=== PATIENT | male | born 1930 | race Caucasian/White ===

== ENCOUNTER 2017-04-20 13:50 | Inpatient (IN) ==
--- NOTE | 2017-04-20 15:05 | EKG Report ---
Stationary ECG Study [facility] ER Test Date: 04/20/2017 2:41:33 PM Pat Name: FIFI JOHN Department: Room: Gender: M Net Trainer: : 1930 Requested by: [place] Order Number: [id number] Reading MD: CHAVO EARL Intervals [place] Rate: 66 P: 999 LA: 0 QRS: 268 QRSD: 233 T: 83 QT: 613 QTc: 627 Interpretive Statements ELECTRONIC VENTRICULAR PACEMAKER Atrial fibrillation Electronically Signed On 04-20-17 21:30:53 CDT by CHAVO EARL [email or web address]
[2017-04-20 16:21] LABS: Basophils % 0.7 % (0.0-0.8); Eosinophils # 0.2 10*3/uL (0.0-0.87); Eosinophils % 3.3 % (0.00-10.9); Hematocrit 33.1 VOL% (42.0-52.0); Hemoglobin 11.4 GM/DL (14.0-18.0); Immature Granulocytes % 0.2 %; Immature Granulocytes Absolute 0.01 #; Lymphocytes # 2.5 10*3/uL (1.4-4.0); Lymphocytes % 46.8 % (21.2-54.2); Mean Corpuscular HGB Conc 34.4 GM/DL (32-36); Mean Corpuscular Hemoglobin 29 PG (27-34); Mean Corpuscular Volume 85.3 FL (87-102); Mean Platelet Volume 10.7 FL (9.6-12.0); Monocytes # 0.4 10*3/uL (0.11-0.8); Monocytes % 7.6 % (1.7-12.7); Neutrophils # 2.2 10*3/uL (1.4-7.4); Neutrophils % 41.4 % (38.7-73.9); Platelet Count 126 T/CUMM (130-400); Red Blood Count 3.88 MC/CUMM (3.8-5.5); Red Cell Distribution Width 14.5 % (9.3-17.3); White Blood Count 5.4 T/CUMM (4-12)
--- NOTE | 2017-04-20 16:24 | XRay Report ---
History: Shortness of breath Date: 04/20/2017 Study: Chest x-ray AP portable Comparison exam: November 20, 2015 There is cardiomegaly. The mediastinal contours are unchanged. There is mild aortic arch calcification. A left subclavian dual-lead transvenous pacemaker is in place. The pulmonary vasculature is not engorged. The lungs and pleural spaces are generally clear. There is mild to moderate thoracic spondylosis. Impression: No definite acute process. Cardiomegaly. Pacemaker PROCEDURE INTERPRETED AT [facility] DEPARTMENT OF RADIOLOGY Final Report Signed by: Dr. Isabel Samuels
[2017-04-20 17:00] LABS: Calcium 8.8 MG/DL (8.5-10.1); Magnesium 2.8 MG/DL (1.8-2.4); Osmolality,Calculated 277.1 MOS/KG (273-304); Potassium 3.7 MMOL/L (3.5-5.1)
[2017-04-20 17:14] LABS: Albumin 4.2 G/DL (3.4-5.0); Bilirubin,Direct 0.53 MG/DL (0.0-0.20); Bilirubin,Indirect 1.1 MG/DL (0.0-1.0); Bilirubin,Total 1.6 MG/DL (0.2-1.0); Total Protein 7.2 G/DL (6.4-8.3)
--- NOTE | 2017-04-20 17:17 | CT Report ---
Exam: CT head without intravenous contrast Clinical History: 86 years Male altered level of consciousness weakness Technique: Axial computed tomography images of the head/brain without intravenous contrast Comparison: March 03, 2013 Findings: Brain: Generalized atrophy with microangiopathic small vessel ischemic changes. Lazo-white matter distinction maintained. No mass effect. No intra or extra-axial hemorrhage. Ventricles: Unremarkable. No ventriculomegaly. Bones/joints: Calvarium is intact Soft tissues: Unremarkable Sinuses: No active paranasal sinus process Mastoid air cells: Unremarkable visualized. Impression: 1. Generalized atrophy with microangiopathic small vessel ischemic changes. No acute intracranial abnormality PROCEDURE INTERPRETED AT [facility] DEPARTMENT OF RADIOLOGY Final Report Signed by: Kuldeep Lazo
[2017-04-20] MEDS ORDERED: SODIUM CHLORIDE 0.9% 500 ML IV STA (18:04)
--- NOTE | 2017-04-20 18:23 | Ultrasound Report ---
Exam: US gallbladder Date:04/20/2017 5:29 PM Comparison:None Indication: Elevated liver function tests Real-time ultrasound images are captured and archived. The liver, bile ducts, and right kidney are visualized and appear normal. There is no evidence of cholelithiasis. There is moderate gallbladder wall thickening at 6.2 mm. There is a negative sonographic Garcia sign. The pancreas is largely obscured by bowel gas. ORGAN MEASUREMENTS Liver Length: 15.8 cm Gallbladder Wall Thickness: 6.2 mm CBD: 3.1 Right kidney: Length: 8.6 cm Impression: Nonspecific gallbladder wall thickening at 6 mm. Negative sonographic Garcia sign. No evidence of cholelithiasis. Consider chronic cholecystitis in the differential diagnosis. The pancreas is obscured by bowel gas. Otherwise negative exam PROCEDURE INTERPRETED AT [facility] DEPARTMENT OF RADIOLOGY Final Report Signed by: Dr. Isabel Samuels
--- NOTE | 2017-04-20 18:52 | Emergency Department Note ---
James Rojas Rolonda, am scribing for, and in the presence of, Bay Sandhu M.D. 15:56. Phoebe Rojas Howard T, M.D., personally performed the services described in this documentation, ascribed by Frederick Ramirez in my presence, and it is both accurate and complete [id number] . Arrival - Arrival Chief Complaint: Weakness Stated Complaint: very weak, can't walk. has pacemaker ED Nursing Triage Note: PT C/O GENERALIZED WEAKNESS TODAY- STATES HE DOES NOT HAVE THE STRENGTH TO WALK. PT STOOD WITHOUT ASSISTANCE IN TRIAGE TO REMOVE JACKET. DENIES PAIN. NO FACIAL DROOP OR SLURRED SPEECH NOTED. Mode of Arrival: Wheelchair Limitations: No Limitations Source: Patient, Old Records Reviewed, RN Notes Reviewed Time Seen by Provider: 04/20/17 15:26 - History of Present Illness HPI Narrative: Pt is a 86 y/o male who presents to the ED for further evaluation of weakness with an onset of yesterday. Pt has a PMHx of HTN, PR, and Pacemaker. Pt states that since yesterday has been having to hold on to something while walking because he has trouble "getting around". He states that he is getting weaker and cannot walk. Pt states that he uses CPAP and is not sleeping well, has no appetite, because he feels he's always "bloated". He states that he has been taking Metamucil for BM. Pt confirms weight loss but denies falling. He states that he does not have a PCP. No other complaint/pain in ED. Onset (ago): day(s) Consistency: constant Severity: mild Severity scale (1-10): 3 Allergies/Adverse Reactions: Allergies Allergy/AdvReac Type Severity Reaction Status Date / Time No Known Allergies Allergy Verified 04/20/17 14:32 Review of System - Review of System 12 point system: reviewed and no additional remarkable complaints except as stated - Review of System Constitutional: Present: weakness, weight loss. Absent: chills, fever Eyes: Absent: discharge Head/Ears/Nose/Throat: Absent: earache Respiratory: Absent: cough Cardiovascular: Absent: chest pain Gastrointestinal: Present: constipation. Absent: abdominal pain Genitourinary male: Absent: dysuria Musculoskeletal: Absent: arm pain Skin: Absent: rash Neurological: Absent: headache Psychiatric: Absent: anxiety Endocrine: Absent: cold intolerance Hematological/Lymphatic: Absent: easy bleeding Allergic/Immunologic: Absent: facial swelling Medical,Surgical,& Family Hx - Medical History Cardio: History of: Hypertension, PR, Pacemaker Endocrine: History of: Dyslipidemia - Social History Smoking Status: Never smoker Frequency of Alcohol Use: None Type of Drug Use: None Exam Vital Signs: Vital Signs Temperature 96.9 F L 04/20/17 14:21 Pulse Rate 68 04/20/17 16:25 Respiratory Rate 20 04/20/17 17:05 Blood Pressure 105/73 04/20/17 16:25 O2 Sat by Pulse Oximetry 96 04/20/17 16:25 - General General appearance: alert, in no apparent distress - Head Head exam: Present: atraumatic, normocephalic - Eye Eye exam: Present: PERRL, EOMI - ENT ENT exam: Present: mucous membranes moist. Absent: mucous membranes dry - Neck Neck exam: Present: full ROM. Absent: tenderness - Chest Chest inspection: Present: symmetric chest wall rise. Absent: tenderness - Respiratory Respiratory exam: Present: normal lung sounds bilaterally. Absent: wheezes - Cardiovascular Cardiovascular exam: Present: regular rate, normal rhythm, normal heart sounds. Absent: bradycardia - Abdominal Exam Abdominal exam: Present: soft, diminished bowel sounds. Absent: tenderness - Extremities Exam Extremities exam: Absent: full ROM, tenderness - Back Exam Back exam: Present: full ROM. Absent: tenderness - Neurological Exam Neurological exam: Present: alert, oriented X3, CN II-XII intact - Psychiatric Psychiatric exam: Present: normal affect, normal mood - Skin Skin exam: Present: warm, dry, intact, normal color. Absent: rash Course Course Narrative: Medical decision making: Patient continues to be symptomatic in the ER including near syncope while trying to use the restroom. Slightly elevated abdominal labs but no history or exam findings to suggest acute abdominal process requiring surgical evaluation. Nonspecific symptoms and workup, possibly cardiac related with history of pacemaker, further evaluation observation recommended to contacted hospitalist service for evaluation and they will likely admit overnight for continued treatment and care. Results - Labs CBC & BMP: 04/20/17 16:01 04/20/17 16:01 Lab Results: I have reviewed the patients labs Labs: Laboratory Tests 04/20/17 04/20/17 04/20/17 16:01 16:01 16:01 WBC 5.4 RBC 3.88 Hgb 11.4 L Hct 33.1 L MCV 85.3 L Plt Count 126 L Sodium 135 L Potassium 3.7 Chloride 100 Carbon Dioxide 26 BUN 40 H Creatinine 2.00 H GFR Calculation 32 Glucose 66 L Magnesium 2.8 H Total Bilirubin 1.60 H Direct Bilirubin 0.530 H Indirect Bilirubin 1.1 H AST 180 H ALT 94 H Alkaline Phosphatase 155 H - Diagnostic Findings Procedure: Chest x-ray: report reviewed by me (No definite acute process. Cardiomegaly. Pacemaker.), CT: report reviewed by me (Head/Brain: 1. Generalized atrophy with microangiopathic small vessel ischemic changes. No acute intracranial abnormality.), Ultrasound: report reviewed by me (Gallbladder : Nonspecific gallbladder wall thickening at 6 mm. Negative sonographic Garcia sign. No cholelithiasis. Consider chronic cholecystitis in the differential diagnosis.) Disposition Clinical Impression: Near syncope Case discussed with: patient Disposition: Still a Patient Condition: Stable Time of Disposition: 18:52
[2017-04-20] MEDS ORDERED: SODIUM CHLORIDE 0.9% 500 ML IV ONE (19:05)
--- NOTE | 2017-04-20 19:15 | Hospitalist History & Physical ---
Assessment and Plan (1) Anemia Status: Acute Assessment and plan: iron studies, consult Dr. Zavala, hold eliquis, stool occult, protonix Current Visit: Yes (2) Dehydration Status: Acute Assessment and plan: gentle hydration hold lasix and spironolactone Current Visit: Yes (3) Acute renal failure Status: Acute Assessment and plan: gentle hydration, renal us, doty monitor Current Visit: Yes (4) Near syncope Status: Acute Assessment and plan: hold blood pressure meds and diuretics Current Visit: Yes (5) CVA (cerebral vascular accident) Status: Acute Assessment and plan: hold eliquis Current Visit: Yes (6) Atrial fibrillation Status: Acute Assessment and plan: ??? paced rhythm but on eliquis for stroke Current Visit: Yes (7) Abnormal liver enzymes Status: Acute Assessment and plan: hold atorvastatin, hepatitis panel, not a drinker Current Visit: Yes (8) BPH (benign prostatic hyperplasia) Status: Acute Assessment and plan: UA pending, doty, blood pressure to low for meds Current Visit: Yes History of Present Illness Chief complaint: weakness History of present illness: Mr. Casillas is a 86 year old male Pt is a 86 y/o male who presents to the ED for further evaluation of weakness with an onset of yesterday. Pt has a PMHx of HTN, [place], and Pacemaker. Pt states that since yesterday has been having to hold on to something while walking because he has trouble "getting around". He states that he is getting weaker and cannot walk. Almost passed out in the bathroom trying to give us a urine specimen. Patient is extremely hard of hearing and daughter answered questions for me. Patient had a Doty placed and they got back 800 mL's of urine. UA has been sent but the findings are pending. I put him on Rocephin prophylactically. Patient looks extremely pale to me and is on Eliquis. Patient is also on Lasix and spironolactone contributing to his dehydration. Sats in the emergency room are picking up low. We will do an ABG to correlate. Daughter denies any history of smoking or lung problems. Home Medications Medication Instructions Recorded Confirmed Type Apixaban [Eliquis] 2.5 mg PO BID 04/20/17 History Atorvastatin Calcium 80 mg PO DAILY 04/20/17 History Spironolactone [Spironolactone] 12.5 mg PO MOWEFR 04/20/17 History Allergies Allergy/AdvReac Type Severity Reaction Status Date / Time No Known Allergies Allergy Verified 04/20/17 14:32 Medical,Surgical,& Family Hx - Medical History Cardio: History of: Hypertension, [place], Pacemaker Endocrine: History of: Dyslipidemia - Surgical History Cardiac Surgeries: Sugical HX of: Vascular Access Devices (pacer) HEENT Surgeries: Surgical HX of: Carotid Endarterectomy - Family History Family History: Reports;: Family Cancer (prostate ca ), Family Diabetes Denies;: Family Heart Disease, Family Stroke - Social History Smoking Status: Never smoker Frequency of Alcohol Use: None Type of Drug Use: None Marital Status: Lives With:: Spouse Functional capacity: independent ambulation - Constitutional Constitutional: Present: fatigue. 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 Absent: blurry vision Ears: Present: decreased hearing. Absent: ear discharge Nose, mouth and throat: Absent: headache(s), sore throat - Cardiovascular Cardiovascular: Absent: chest pain at rest, dyspnea - Respiratory Respiratory: Absent: dyspnea, dyspnea on exertion - Gastrointestinal Gastrointestinal: Present: constipation. Absent: diarrhea, nausea, vomiting - Genitourinary Genitourinary: Present: difficulty urinating. Absent: dysuria - Neurological Neurological: Present: dizziness. Absent: focal weakness, frequent falls, headache(s), syncope - Psychiatric Psychiatric: Absent: anxiety, confusion, depression - Endocrine Endocrine: Absent: cold intolerance, heat intolerance - Hematologic/Lymphatic Hematologic/Lymphatic: Absent: easy bleeding, easy bruising Exam - Constitutional Vitals: Period Temp Pulse Resp BP Sys/Walker Pulse Ox Last 24 Hr 96.9 F 60-68 18-20 105-105/59-73 95-96 General appearance: normal weight, no acute distress - Head Head exam: Present: normal inspection, normocephalic - Eye Eye exam: Present: EOMI. Absent: scleral icterus Pupils: Present: OVIDIO, normal accommodation - ENT ENT exam: Present: normal exam, normal external ear exam - Neck Neck exam: Absent: lymphadenopathy, thyromegaly - Respiratory Respiratory exam: Present: clear to auscultation bilaterally, decreased breath sounds. Absent: rhonchi, wheezes - Cardiovascular Cardiovascular exam: Present: regular rate and rhythm. Absent: systolic murmur - GI/Abdominal GI/Abdominal exam: Present: normal bowel sounds, soft. Absent: tenderness - Extremities Exam Extremities exam: Present: normal inspection, normal capillary refill - Neurological Exam Neurological exam: Present: alert, oriented X3, CN II-XII intact, reflexes normal. Absent: motor sensory deficit - Psychiatric Psychiatric exam: Present: normal affect, normal mood - Skin Skin exam: Present: pallor Results - Labs CBC & BMP: 04/20/17 16:01 04/20/17 16:01 Lab Results: I have reviewed the past 24 hour labs Labs: ua - Diagnostic Findings Procedure: Chest x-ray: report reviewed by me (Nothing acute), CT: report reviewed by me (Head CT shows generalized atrophy), Ultrasound: report reviewed by me (Gallbladder wall thickening no cholelithiasis)
[2017-04-20 20:04] LABS: % Iron Saturation 17.2 % (18-50); Ferritin 263.3 ng/ml (26-388)
--- NOTE | 2017-04-20 20:23 | Ultrasound Report ---
History: Elevated creatinine level Date: 04/20/2017 Study: Bilateral renal ultrasound kidneys only Comparison exam: No recent similar Real-time ultrasound images are captured and archived. The right kidney measures 9.0 x 3.9 x 4.5 cm; the left kidney measures 9.8 x 5.1 x 5.2 cm. There is no solid renal mass. There is a 29 mm simple cyst in the mid to upper left kidney laterally. The renal parenchyma is slightly hyperechoic to the hepatic parenchyma compatible with infiltrating and/or fibrosing medical renal parenchymal disease. There is no hydronephrosis or abnormal perinephric fluid. Impression: Medical renal parenchymal disease. 29 mm simple cyst left kidney PROCEDURE INTERPRETED AT [facility] DEPARTMENT OF RADIOLOGY Final Report Signed by: Dr. Isabel Samuels
[2017-04-20] MEDS ORDERED: ONDANSETRON 4 MG/2 ML VIAL IV PRN (20:31)
[2017-04-20] MEDS ORDERED: ACETAMINOPHEN 325 MG TABLET PO PRN (20:31)
[2017-04-20] MEDS ORDERED: LACTULOSE 20 GM/30 ML UDCUP PO PRN (20:31)
[2017-04-20 20:34] LABS: Allen Test Positive
[2017-04-20 20:35] LABS: ABG Base Excess -5.2 MMOL/L (-2.5-2.5); ABG HCO3 20.1 MMOL/L (20-26); ABG PCO2 27.1 MM HG (35-48); ABG PH 7.428 (7.35-7.45); ABG TCO2 16.1 MMOL/L (23-27)
[2017-04-20 20:36] LABS: Apearance,Urine CLEAR (Clear); Bilirubin,Urine Negative (Negative); Blood, Urine Small mg/dL (Negative); Glucose,Urine (UA) Negative (Negative); Hyaline Casts,Urine 7 /LPF (0-3); Ketones,Urine Negative (Negative); Mucus,Urine Occasional /LPF (Occasional); Nitrite,Urine Negative (Negative); Protein,Urine Negative; RBC,Urine 3 /HPF (0-4); Urine Color Yellow (Yellow); Urine Specific Gravity 1.006 (1.001-1.035); Urine Urobilinogen < 2.0 EU/DL (0.2-1.0)
[2017-04-20 21:55] LABS: Magnesium 2.9 MG/DL (1.8-2.4); Thyroid Stimulating Hormone 98.4 uIU/ml (0.358-3.74)
[2017-04-20 22:06] LABS: Hemoglobin 10.9 GM/DL (14.0-18.0)
[2017-04-20] MEDS: PANTOPRAZOLE 40 MG TABLET PO SCH (22:33)
[2017-04-20] MEDS: cefTRIAXone 1,000 MG in SODIUM CHLORIDE 0.9% 100 ML IV SCH (22:33)
[2017-04-20] MEDS: SODIUM CHLORIDE 0.9% 1,000 ML IV SCH (22:34)
[2017-04-20 22:39] LABS: Hepatitis A Ab IgM Quant 0.22 Index; Hepatitis A Ab IgM Result Negative (Negative); Hepatitis B Core IgM Quant 0.28 Index; Hepatitis B Core IgM Result Negative (Negative); Hepatitis B Surface Ag Quant 0.49 Index; Hepatitis B Surface Ag Result Negative (Negative); Hepatitis C Virus Ab Quant 0.04 Index; Hepatitis C Virus Ab Result Negative (Negative)
[2017-04-21 02:34] LABS: Barbiturates Screen,Urine Negative (Negative); Benzodiazepines Screen,Urine Negative (Negative); Cannabinoid Screen,Urine Negative (Negative); Opiate Screen,Urine Negative (Negative); Phencyclidine Screen,Urine Negative (Negative)
[2017-04-21 04:22] LABS: Basophils % 0.3 % (0.0-0.8); Eosinophils # 0.1 10*3/uL (0.0-0.87); Eosinophils % 1.2 % (0.00-10.9); Hematocrit 35.9 VOL% (42.0-52.0); Hemoglobin 11.8 GM/DL (14.0-18.0); Immature Granulocytes % 0.5 %; Immature Granulocytes Absolute 0.05 #; Lymphocytes # 2.4 10*3/uL (1.4-4.0); Lymphocytes % 25.7 % (21.2-54.2); Mean Corpuscular HGB Conc 32.9 GM/DL (32-36); Mean Corpuscular Hemoglobin 29 PG (27-34); Mean Corpuscular Volume 87.1 FL (87-102); Mean Platelet Volume 12.3 FL (9.6-12.0); Monocytes # 0.5 10*3/uL (0.11-0.8); Monocytes % 5.9 % (1.7-12.7); Neutrophils # 6.1 10*3/uL (1.4-7.4); Neutrophils % 66.4 % (38.7-73.9); Platelet Count 119 T/CUMM (130-400); Red Blood Count 4.12 MC/CUMM (3.8-5.5); Red Cell Distribution Width 14.5 % (9.3-17.3); White Blood Count 9.2 T/CUMM (4-12)
[2017-04-21 04:59] LABS: Albumin 3.8 G/DL (3.4-5.0); Bilirubin,Total 3.2 MG/DL (0.2-1.0); Calcium 8.7 MG/DL (8.5-10.1); Osmolality,Calculated 279.8 MOS/KG (273-304); Potassium 4.1 MMOL/L (3.5-5.1); Total Protein 6.7 G/DL (6.4-8.3)
[2017-04-21] MEDS ORDERED: DEXTROSE 50% 25 GM/50 ML SYRINGE IV ONE ×4 (05:16→18:14)
[2017-04-21] MEDS: SODIUM CHLORIDE 0.9% 1,000 ML IV SCH (05:51)
[2017-04-21] MEDS: DEXTROSE 5% 1,000 ML IV SCH ×2 (05:52→14:26)
--- NOTE | 2017-04-21 09:02 | Gastrointestinal Consult Note ---
<Sergio Woodwardher Lacey - Last Filed: 04/21/17 08:54> Assessment and Plan (1) Anemia Status: Acute Assessment and plan: 04/21-admitted with weakness and near syncope, with history of atrial fibrillation and Eliquis daily use. No known prior history of anemia in the past. Also notation of elevated LFTs with prior history of this as well. Stool for occult blood are pending at this time. Known on prior endoscopy in the past. Plan an addendum to followed by Dr. Zavala. Current Visit: Yes History of Present Illness Chief complaint: Anemia History of present illness: Mr. Casillas is a 86 year old male who was admitted to the hospital on yesterday with complaints of increased weakness. Patient has a prior history of hypertension, [place] and pacemaker. Patient is a very poor historian due to he is extremely hard of hearing despite greatest efforts to communicate. He is also blind in one eye. Patient has no family available during visit to obtain history from. Patient was admitted with reports of increased weakness that started on yesterday. He reported that he could not walk and he had an episode of near syncope. His daughter was present during initial admission visit and provided historical information. He has a history of atrial fibrillation and noted to be on Eliquis. Last known dose was on yesterday. He was also found on admission to have dehydration as well as elevated liver enzymes. He does not recall a prior history of anemia or blood transfusions in the past. His admitting H&H was noted in . He cannot recall prior endoscopy in the past. On admission, his bilirubin was noted at 1.6, AST 180, ALT at 94, alkaline phosphatase 155. Today he is noted to have an elevation in his LFTs with bilirubin of 3.2, AST 280, ALT 147 and no changes in alcohol phosphatase. Hepatitis panel and drug screen are negative. He had a gallbladder ultrasound on admission which showed nonspecific gallbladder wall thickening at 6 mm with no cholelithiasis and normal common bile duct at 3.1. He has stool for occult blood pending at this time. Upon reviewing his record, he has noted to have a history of elevated liver enzymes in the past, felt to be passive congestion from his heart disease, with a prior history of heavy alcohol use greater than 20 years ago. Home Medications Medication Instructions Recorded Confirmed Type Apixaban [Eliquis] 2.5 mg PO BID 04/20/17 04/21/17 History Atorvastatin Calcium 80 mg PO DAILY 04/20/17 04/21/17 History Furosemide [Furosemide] 40 mg PO DAILY 04/20/17 04/21/17 History Magnesium Chloride [Slow Mag] 64 mg PO BID 04/20/17 04/21/17 History Metoprolol Succinate Xl [Toprol Xl] 25 mg PO BID 04/20/17 04/21/17 History Potassium Chloride 10 meq PO DAILY 04/20/17 04/21/17 History Spironolactone [Spironolactone] 12.5 mg PO MOWEFR 04/20/17 04/21/17 History Allergies Allergy/AdvReac Type Severity Reaction Status Date / Time No Known Allergies Allergy Verified 04/20/17 14:32 Medical,Surgical,& Family Hx - Medical History Cardio: History of: Hypertension, NC, Pacemaker Endocrine: History of: Dyslipidemia - Surgical History Cardiac Surgeries: Sugical HX of: Carotid Endarterectomy, Vascular Access Devices (pacer) HEENT Surgeries: Surgical HX of: Carotid Endarterectomy - Family History Family History: Reports;: Family Cancer (prostate ca ), Family Diabetes Denies;: Family Heart Disease, Family Stroke - Social History Smoking Status: Never smoker Frequency of Alcohol Use: None Type of Drug Use: None ROS unobtainable: other (Due to difficulty hearing) Exam - Constitutional Vitals: Period Temp Pulse Resp BP Sys/Walker Pulse Ox Last 24 Hr 96.2 F-97.5 F 58-70 16-62 105-119/59-83 94-100 General appearance: normal weight, no acute distress - Head Head exam: Present: normal inspection, normocephalic - Eye Eye exam: Present: other (Lids and conjunctive are unremarkable). Absent: scleral icterus - ENT ENT exam: Present: normal exam, normal oropharynx - Neck Neck exam: Present: normal inspection - Respiratory Respiratory exam: Present: clear to auscultation bilaterally. Absent: rales, rhonchi, wheezes - Cardiovascular Cardiovascular exam: Present: regular rate and rhythm. Absent: diastolic murmur , JVD, systolic murmur - GI/Abdominal GI/Abdominal exam: Present: normal bowel sounds, soft. Absent: ascites, distended, mass, organomegaly, tenderness - Extremities Exam Extremities exam: Present: normal inspection, full ROM - Back Exam Back exam: Present: normal inspection - Neurological Exam Neurological exam: Present: alert, oriented X3 - Psychiatric Psychiatric exam: Present: normal affect, normal mood - Skin Skin exam: Present: normal color, warm, dry Results - Labs CBC & BMP: 04/21/17 03:56 04/21/17 03:56 Lab Results: I have reviewed the past 24 hour labs <Timothy Zavala - Last Filed: 04/21/17 20:36> History of Present Illness History of present illness: Mr. Casillas is a 86 year old male Exam - Constitutional Vitals: Period Temp Pulse Resp BP Sys/Walker Pulse Ox Last 24 Hr 96.6 F-97.5 F 58-70 14-62 95-119/62-83 86-100 Results - Labs CBC & BMP: 04/21/17 12:29 04/21/17 16:15
[2017-04-21] MEDS: PANTOPRAZOLE 40 MG TABLET PO SCH ×2 (09:56→22:35)
--- NOTE | 2017-04-21 10:33 | EKG Report ---
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
[2017-04-21 12:58] LABS: Hematocrit 34.9 VOL% (42.0-52.0); Hemoglobin 11.7 GM/DL (14.0-18.0)
[2017-04-21] MEDS ORDERED: COSYNTROPIN 0.25 MG VIAL IV ONE (13:44)
[2017-04-21] MEDS ORDERED: SODIUM CHLORIDE 0.9% 500 ML IV ONE (15:11)
--- NOTE | 2017-04-21 15:24 | Hospitalist Progress Note ---
Assessment and Plan (1) Hypoglycemia Status: Acute Assessment and plan: suspect adrenal insuff, D5 started, cosyntropin stim test ordered, stress dose steroids started, workup ordered for panhypopit Current Visit: Yes (2) Hypothyroidism Status: Acute Assessment and plan: tsh 98, stat free T4, suspect adrenal insuff, synthyroid 100 mcg IV daily with stress dose steroids Current Visit: Yes (3) Anemia Status: Acute Assessment and plan: Guaiac stool pending, seen by GI. Hold Eliquis for now. Hemoglobin stable. Continue to monitor. Current Visit: Yes (4) Dehydration Status: Acute Assessment and plan: Blood pressure still low. Gentle hydration with 500 cc bolus will add bicarb to fluids. Current Visit: Yes (5) Acute renal failure Status: Acute Assessment and plan: gentle hydration, renal us shows medical renal disease, cont doty Current Visit: Yes (6) Near syncope Status: Acute Assessment and plan: suspect adrenal insuff Current Visit: Yes (7) CVA (cerebral vascular accident) Status: Acute Assessment and plan: hold eliquis for now Current Visit: Yes (8) Atrial fibrillation Status: Acute Assessment and plan: hold eliquis for now, blood pressure low Current Visit: Yes (9) Abnormal liver enzymes Status: Acute Assessment and plan: hold atorvastatin, hepatitis panel negative, ammonia Current Visit: Yes (10) BPH (benign prostatic hyperplasia) Status: Acute Assessment and plan: UA negative for infection, doty, Urology consulted Current Visit: Yes Hospitalist: Subjective Interval history: Discuss and update on patient with his daughter and his . Daughter thought he was more confused today. His color looked better today. His blood sugars dropped into 31 last night and had to be started on D5. His pressure is running a little bit low today and his TSH came back high. I feel that he most likely has adrenal insufficiency. Dr. Zavala has seen him and does not feel that he needs a scope at this time. His nausea and vomiting may be secondary to adrenal insufficiency. With both his TSH and adrenal gland at risk he may be bartlett hypo-pit. Patient will be moved to the ICU for more intensive monitoring overnight. I will give him stress dose steroids and start him on IV Synthroid. I have drawn the other hormone levels that with determine if he is bartlett hypopit. Nursing reports patient tried to eat something and threw it back up today. I told him not to give him anymore lactulose at this time. Total time spent 60 minutes Exam - Constitutional Vitals: Period Temp Pulse Resp BP Sys/Walker Pulse Ox Last 24 Hr 96.2 F-97.5 F 58-70 16-62 95-119/62-83 94-100 Exam: Heart Rate-[RRR] Lungs-[CTAB] GI-[+bs soft, NT] Ext-[no edema] Neuro [Motor 5/5], [alert and oriented times 1, confused Skin color not as pale ] psych [agitated mood and affect] General [no acute distress] Results - Labs CBC & BMP: 04/21/17 12:29 04/21/17 03:56 Lab Results: I have reviewed the past 24 hour labs Labs: bnp 431, tsh 98, hepatitis panel negative, UA negative - Diagnostic Findings Procedure: Ultrasound: report reviewed by me (Renal ultrasound shows medical renal disease)
[2017-04-21] MEDS ORDERED: LEVOTHYROXINE 100 MCG VIAL IV SCH (15:30)
[2017-04-21] MEDS ORDERED: SODIUM ACETATE 50 MEQ in DEXTROSE 5% NACL 0.45% 1,000 ML IV SCH (16:00)
[2017-04-21] MEDS: HYDROCORTISONE 100 MG VIAL IV SCH ×2 (16:43→22:35)
[2017-04-21 17:19] LABS: Follicle Stimulating Hormone 4.8 MIU/ML; Luteinizing Hormone 7.9 MIU/ML
[2017-04-21] MEDS: LEVOTHYROXINE 100 MCG VIAL IV SCH (17:36)
[2017-04-21] MEDS: DEXTROSE 10% 500 ML IV SCH (18:39)
[2017-04-21] MEDS: cefTRIAXone 1,000 MG in SODIUM CHLORIDE 0.9% 100 ML IV SCH (21:06)
--- NOTE | 2017-04-21 21:16 | ECHO Report ---
Kian Casillas Exam Date: 04/21/2017 08:11 Referring Physician: Technologist: Mimi Powers Age: 86 Ht (in): 70 Wt (lb): 155 Gender: M Exam Location: [facility] Echo Indications: abn. liver enzymes, a fib, anemia, dehydration, ARF, near syncope, CVA, HTN, pacemaker, weakness BP: 113 / 71 HR: 80 Rhythm: pacemaker Technical Quality: IMPRESSIONS Normal left ventricular size, without hypertrophy, severely hypokinetic mid to apical segments, with preserved thickening of the basal segments. There is abnormal septal motion. Estimated left ventricular ejection fraction 20%. Grade 3 diastolic dysfunction. Moderately dilated right ventricle, with normal systolic function. Pacemaker wire in the right ventricle. Severe biatrial enlargement. Moderate mitral regurgitation. Mild aortic valve sclerosis, without stenosis, with trace insufficiency. Pulmonary hypertension, the degree cannot be estimated due to severe tricuspid regurgitation. MEASUREMENTS (Male / Female) Normal Values 2D ECHO LV Diastolic Diameter PLAX 4.8 cm 4.2 - 5.9 / 3.9 - 5.3 cm LV Systolic Diameter PLAX 4.3 cm LV Fractional Shortening PLAX 11.3 % IVS Diastolic Thickness 1.0 cm 0.6 - 1.0 / 0.6 - 0.9 cm LVPW Diastolic Thickness 1.1 cm 0.6 - 1.0 / 0.6 - 0.9 cm Aortic Root Diameter 2.6 cm LA Systolic Diameter LX 5.0 cm 3.0 - 4.0 / 2.7 - 3.8 cm DOPPLER TR Peak Velocity 246.0 cm/s TR Peak Gradient 24.2 mmHg FINDINGS Left Ventricle Normal left ventricular size, without hypertrophy, severely hypokinetic mid to apical segments, with preserved thickening of the basal segments. There is abnormal septal motion. Estimated left ventricular ejection fraction 20%. Grade 3 diastolic dysfunction Right Ventricle Moderately dilated right ventricle, with normal systolic function. Pacemaker wire in the right ventricle. Right Atrium Severely dilated right atrium. Left Atrium Severely dilated left atrium. Mitral Valve Mildly thickened mitral valve with moderate mitral regurgitation. Aortic Valve Mild aortic valve sclerosis without stenosis. Trace aortic valve regurgitation. Tricuspid Valve Morphologically normal tricuspid valve. Severe tricuspid valve regurgitation. Estimated pulmonary artery pressure 25 mmHg plus right atrial pressure. The degree of pulmonary hypertension may be underestimated due to severity of the TR. Pulmonic Valve Pulmonic valve not well visualized. Pericardium No pericardial effusion. Aorta Normal size aortic root and proximal ascending aorta. Crow Le (Electronically Signed) Final Date: 21 April 2017 21:15
[2017-04-22] MEDS: DEXTROSE 10% 500 ML IV SCH ×2 (01:50→08:38)
[2017-04-22] MEDS: HYDROCORTISONE 100 MG VIAL IV SCH ×3 (04:28→18:11)
[2017-04-22 05:24] LABS: Basophils % 0.1 % (0.0-0.8); Hematocrit 32.3 VOL% (42.0-52.0); Hemoglobin 10.9 GM/DL (14.0-18.0); Lymphocytes # 1.1 10*3/uL (1.4-4.0); Lymphocytes % 5.7 % (21.2-54.2); Mean Corpuscular HGB Conc 33.7 GM/DL (32-36); Mean Corpuscular Hemoglobin 29 PG (27-34); Mean Corpuscular Volume 86.6 FL (87-102); Mean Platelet Volume 13.1 FL (9.6-12.0); Monocytes # 0.4 10*3/uL (0.11-0.8); Monocytes % 1.9 % (1.7-12.7); Neutrophils # 18.3 10*3/uL (1.4-7.4); Neutrophils % 91.3 % (38.7-73.9); Red Blood Count 3.73 MC/CUMM (3.8-5.5); Red Cell Distribution Width 14.8 % (9.3-17.3)
[2017-04-22 05:28] LABS: Platelet Count 85 T/CUMM (130-400); White Blood Count 20.1 T/CUMM (4-12)
[2017-04-22 05:55] LABS: Albumin 3.5 G/DL (3.4-5.0); Calcium 8.4 MG/DL (8.5-10.1); Osmolality,Calculated 273.7 MOS/KG (273-304); Potassium 3.8 MMOL/L (3.5-5.1); Total Protein 6.4 G/DL (6.4-8.3)
[2017-04-22 06:12] LABS: Acanthocytes 2+; Band Neutrophils 3 % (0-10); Lymphocytes 4 % (20-55); Metamyelocytes 1 %; Ovalocytes 2+; Platelet Estimate Decreased; Segmented Neutrophils 92 % (50-85); Total Cells Counted 100
[2017-04-22 06:13] LABS: Anisocytosis 1+; Hypochromasia 2+; Microcytosis 1+
[2017-04-22] MEDS: LEVOTHYROXINE 100 MCG VIAL IV SCH (06:37)
[2017-04-22] MEDS: PANTOPRAZOLE 40 MG TABLET PO SCH ×2 (09:54→21:16)
--- NOTE | 2017-04-22 10:11 | Gastrointestinal Progress Note ---
<Sergio Woodwardher Lacey - Last Filed: 04/22/17 10:07> Assessment and Plan (1) Anemia Status: Acute Assessment and plan: 04/22- . No overt bleeding. LFTs elevated today with reported hypotensive episode. Plan and addendum to follow by Dr Zavala. 04/21-admitted with weakness and near syncope, with history of atrial fibrillation and Eliquis daily use. No known prior history of anemia in the past. Also notation of elevated LFTs with prior history of this as well. Stool for occult blood are pending at this time. Known on prior endoscopy in the past. Plan an addendum to followed by Dr. Zavala. Current Visit: Yes Gastroenterology - PN: Subj Interval history: CC: Anemia Pt is seen, awake and alert, lying in bed. He was transferred to ICU yesterday for better monitoring of his hemodynamics with some hypotension on yesterday. His elevated TSH is being addressed. He is resting comfortably and has no complaints today. Abdomen is soft, nontender. HH is stable at . WBC 63784 after initiation of IV steroids. He is noted to have an elevation in his LFTs today with AST 2175 and ALT 1025. He did have some hypotensive pressures with systolic averaging the low 90s to 100. ROS: Denies SOB or chest pain Exam (Progress Note) - Constitutional Vitals: Period Temp Pulse Resp BP Sys/Walker Pulse Ox Last 24 Hr 96.7 F-97.2 F 60-63 13-22 93-108/57-74 86-99 General appearance: normal weight, no acute distress - Head Head exam: Present: normal inspection, normocephalic - Eye Eye exam: Present: other (lids and conjuncitva unremarkable). Absent: scleral icterus - ENT ENT exam: Present: normal exam, normal oropharynx - Neck Neck exam: Present: normal inspection - Respiratory Respiratory exam: Present: clear to auscultation bilaterally. Absent: rales, rhonchi, wheezes - Cardiovascular Cardiovascular exam: Present: regular rate and rhythm. Absent: diastolic murmur , JVD, systolic murmur - GI/Abdominal GI/Abdominal exam: Present: normal bowel sounds, soft. Absent: ascites, distended, mass, organomegaly, tenderness - Extremities Exam Extremities exam: Present: normal inspection, full ROM - Back Exam Back exam: Present: normal inspection - Neurological Exam Neurological exam: Present: alert, oriented X3 - Psychiatric Psychiatric exam: Present: normal affect, normal mood - Skin Skin exam: Present: normal color, warm, dry Results - Labs CBC & BMP: 04/22/17 04:28 04/22/17 04:28 Lab Results: I have reviewed the past 24 hour labs <Timothy Zavala - Last Filed: 04/22/17 19:49> Exam (Progress Note) - Constitutional Vitals: Period Temp Pulse Resp BP Sys/Walker Pulse Ox Last 24 Hr 96.1 F-97.2 F 60-69 13-21 93-106/53-73 90-100 Results - Labs CBC & BMP: 04/22/17 04:28 04/22/17 04:28
[2017-04-22] MEDS ORDERED: DEXTROSE 5% 1,000 ML IV SCH (10:39)
--- NOTE | 2017-04-22 13:12 | Urology Consultation ---
Assessment and Plan - Time spent with patient Time spent with patient: Less than 30 minutes (1) Acute urinary retention Status: Acute Assessment and plan: Acute urinary retention, possibly chronic I agree with Steinberg drainage. Maintain Steinberg catheter until up and ambulatory. He may need intermittent catheterization. However if he is ambulatory, with remove catheter and give voiding trial. He did have a history of self- catheterization in the past per his daughter. Current Visit: Yes (2) Acute renal failure Status: Acute Assessment and plan: Creatinine 2.00 when admitted, and this is written to 2.30. He is on IV fluids His catheter is draining well and renal ultrasound with no evidence of hydronephrosis. I do not feel this is a postobstructive problem. Current Visit: Yes (3) Anemia Status: Acute Assessment and plan: Patient has a history of anemia, anticoagulation with Eliquis, and atrial fibrillation. This all would be indicators that we should not try any surgical intervention for his prostate. I have discussed with his daughter that he is not a great surgical candidate, and if remains urinary retention will likely need intermittent catheterization. Current Visit: Yes (4) BPH (benign prostatic hyperplasia) Status: Acute Assessment and plan: Start finasteride 5 mg daily I have discussed with Dr. Tovar that I would like to add Flomax 0.4 mg at bedtime if his blood pressure becomes more stable. Given his near syncope and hypotension, this is not a good option currently. I have reviewed his old images, his laboratory values, and his records. Discussed with his daughter that his urinary retention may be due to BPH that is chronic. At this time will try conservative management. Thanks for the opportunity to participate in this patient's care. Will follow along with you. Current Visit: Yes (5) Near syncope Status: Acute Current Visit: Yes History of Present Illness - Data of Consult Patient: new to practice Consult date: 04/22/17 Requesting Physician: Vesna Tovar - Consult Narrative History of present illness: Mr. Casillas is a 86 year old male admitted with presyncope and syncopal episode. He was confused, and has cardiac history. He has a history of stroke as well as atrial fibrillation on chronic anticoagulation with Eliquis. He was found to be in acute urinary retention with 800 mL of urine. A Steinberg catheter was placed, and has been draining well. He is very hard of hearing, and he is very difficult to obtain a history from. His has Alzheimer's and cannot provide a history. I have spoken to his daughter Rebecca Casillas on the telephone ([phone]) who has provided as much history as possible. He did have a prior history of urinary retention on a previous admission. At that time he was discharged home with intermittent catheterization. She reports this is many years ago. He continued self cathing for an unspecified amount of time, but this resolved. He has had no routine follow-up with urologist as far as his daughter knows. No history of gross hematuria. He has old imaging from [address] scan demonstrating a simple left renal cyst, a large prostate over 6 cm wide, and no other significant urologic findings on imaging. He had a recent renal ultrasound that demonstrated no hydronephrosis bilaterally with the left simple renal cyst noted. I have spoken with his daughter for the history, reviewed the chart, the nurses assisted, and discussed his care with Dr. Tovar. Onset is unclear, moderate severity, possibly chronic, no alleviating or aggravating factors or elicited. CC: Vesna Tovar MD Acute urinary retention - Home Medications and Allergies Home Medications: Home Medications Medication Instructions Recorded Confirmed Type Apixaban [Eliquis] 2.5 mg PO BID 04/20/17 04/21/17 History Atorvastatin Calcium 80 mg PO DAILY 04/20/17 04/21/17 History Furosemide [Furosemide] 40 mg PO DAILY 04/20/17 04/21/17 History Magnesium Chloride [Slow Mag] 64 mg PO BID 04/20/17 04/21/17 History Metoprolol Succinate Xl [Toprol Xl] 25 mg PO BID 04/20/17 04/21/17 History Potassium Chloride 10 meq PO DAILY 04/20/17 04/21/17 History Spironolactone [Spironolactone] 12.5 mg PO MOWEFR 04/20/17 04/21/17 History Allergies/Adverse Reactions: Allergies Allergy/AdvReac Type Severity Reaction Status Date / Time No Known Allergies Allergy Verified 04/20/17 14:32 Medical,Surgical,& Family Hx - Medical History Cardio: History of: Hypertension, [place], Pacemaker, Cardiovascular Problems ( History of atrial fibrillation on chronic anticoagulation) HEENT: History of: HEENT Problems (Very hard of hearing) Endocrine: History of: Dyslipidemia Genitourinary: History of: Prostate Problems (History of urinary retention several years ago requiring CIC) Hematology: History of: Anemia - Surgical History Cardiac Surgeries: Sugical HX of: Carotid Endarterectomy, Vascular Access Devices (pacer) HEENT Surgeries: Surgical HX of: Carotid Endarterectomy - Family History Family History: Reports;: Family Cancer (prostate ca ), Family Diabetes Denies;: Family Heart Disease, Family Stroke - Social History Smoking Status: Never smoker Frequency of Alcohol Use: None Type of Drug Use: None 12 point system: reviewed and no additional remarkable complaints except as stated (Difficult to assess due to his communication problems,) - Constitutional Constitutional: Present: frequent falls, weakness - EENT Ears: Present: decreased hearing Nose, mouth and throat: Absent: dysphagia - Respiratory Respiratory: Absent: cough - Genitourinary Genitourinary: Present: as per HPI, difficulty urinating, other (History of urinary retention in the past) - Neurological Neurological: Present: disequilibrium Exam - Constitutional Vitals: Period Temp Pulse Resp BP Sys/Walker Pulse Ox Last 24 Hr 96.7 F-97.2 F 60-63 13-22 93-108/57-74 86-97 General appearance: no acute distress - Head Head exam: Present: normocephalic, atraumatic - Eye Eye exam: Absent: scleral icterus - ENT ENT exam: Present: normal oropharynx - Neck Neck exam: Present: normal inspection - Respiratory Respiratory exam: Present: clear to auscultation bilaterally. Absent: stridor, wheezes - Cardiovascular Cardiovascular exam: Present: irregular rhythm. Absent: JVD - GI/Abdominal GI/Abdominal exam: Present: normal bowel sounds, soft. Absent: tenderness, rebound - Genitourinary Genitourinary: scrotum without lesions, cysts, edema or rash, penis with no lesions or discharge, diffusely enlarged prostate without tenderness (50+ g prostate estimated on exam, no nodules appreciated), other (Steinberg catheter secured to right thigh draining clear urine) - Extremities Exam Extremities exam: Absent: edema - Back Exam Back exam: Absent: CVA tenderness (L), CVA tenderness (R) - Neurological Exam Neurological exam: Present: alert, oriented X3 - Psychiatric Psychiatric exam: Present: normal affect, normal mood - Skin Skin exam: Present: warm, dry Results - Labs CBC & BMP: 04/22/17 04:28 04/22/17 04:28 Lab Results: I have reviewed the past 24 hour labs - Diagnostic Findings Procedure: CT Abdomen and Pelvis: image reviewed by me (Reviewed from 2008, and looking in images he has no evidence of prior stones with an enlarged prostate protruding into the bladder, left simple renal cyst, no other lesions appreciated), Ultrasound: image reviewed by me, report reviewed by me (Recent kidney ultrasound bilaterally with left simple renal cyst and no other significant lesions, no hydronephrosis, no stones)
--- NOTE | 2017-04-22 13:23 | Hospitalist Progress Note ---
Assessment and Plan (1) Hypoglycemia Status: Acute Assessment and plan: Cosyntropin stem test was normal. Hypoglycemia may be related to worsening liver function. We will wean off D5 Current Visit: Yes (2) Hypothyroidism Status: Acute Assessment and plan: Continue IV Synthroid will decrease stress dose steroids. Current Visit: Yes (3) Anemia Status: Acute Assessment and plan: Guaiac stool pending, seen by GI. Hold Eliquis for now. Hemoglobin stable. Continue to monitor. Current Visit: Yes (4) Dehydration Status: Acute Assessment and plan: Resolved. Patient developing mild volume overload Current Visit: Yes (5) Acute renal failure Status: Acute Assessment and plan: Chronic renal failure as renal ultrasound shows medical renal disease. Current Visit: Yes (6) Near syncope Status: Acute Assessment and plan: Due to dehydration and hypothyroidism Current Visit: Yes (7) CVA (cerebral vascular accident) Status: Acute Assessment and plan: hold eliquis for now Current Visit: Yes (8) Atrial fibrillation Status: Acute Assessment and plan: hold eliquis for now, blood pressure low rate controlled Current Visit: Yes (9) Abnormal liver enzymes Status: Acute Assessment and plan: hold atorvastatin, hepatitis panel negative, ammonia level elevated and liver enzymes into the thousands consistent with shock liver Current Visit: Yes (10) BPH (benign prostatic hyperplasia) Status: Acute Assessment and plan: UA negative for infection, doty, Dr. Gayle from urology has started medications that should not affect his blood pressure. When he is up and mobile will try to get his Doty out. 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 Current Visit: Yes Hospitalist: Subjective Interval history: Mr. Casillas blood sugars are better today. I am going to take him off the D10 in the D5 and see if he can hold his blood sugars. He is cosyntropin stim test was normal. I am concerned that his low blood sugars are due to liver dysfunction. His liver enzymes have increased tremendously most likely secondary to shock liver due to hypotension. Patient is developing some volume overload from the IV fluids and we will need to DC them. Patient is severely hypothyroid is and is receiving the IV Synthroid. Still very confused but his ammonia level is 50. Exam - Constitutional Vitals: Period Temp Pulse Resp BP Sys/Walker Pulse Ox Last 24 Hr 96.7 F-97.2 F 60-63 13-22 93-108/57-74 86-97 Exam: Heart Rate-[RRR] Lungs-[few crackles at bases ] GI-[+bs soft, NT] Ext-[slight edema] Neuro [Motor 5/5], [alert and oriented times 1, confused Skin color not as pale ] psych [less agitated General [no acute distress] Results - Labs CBC & BMP: 04/22/17 04:28 04/22/17 04:28 Lab Results: I have reviewed the past 24 hour labs Labs: Blood cultures 2 pending. - Diagnostic Findings Procedure: Ultrasound: report reviewed by me (Echocardiogram shows an EF of 20% with grade 3 diastolic dysfunction. KADEEM P 25, renal ultrasound medical renal disease.)
[2017-04-22] MEDS: LACTULOSE 20 GM/30 ML UDCUP PO SCH ×2 (15:01→21:19)
[2017-04-22] MEDS: cefTRIAXone 1,000 MG in SODIUM CHLORIDE 0.9% 100 ML IV SCH (21:13)
[2017-04-22] MEDS: FINASTERIDE 5 MG TABLET PO SCH (21:17)
[2017-04-23] MEDS: HYDROCORTISONE 100 MG VIAL IV SCH ×2 (02:42→14:53)
[2017-04-23 05:37] LABS: Basophils % 0.1 % (0.0-0.8); Hematocrit 32.7 VOL% (42.0-52.0); Hemoglobin 10.9 GM/DL (14.0-18.0); Immature Granulocytes % 0.9 %; Immature Granulocytes Absolute 0.17 #; Lymphocytes # 0.9 10*3/uL (1.4-4.0); Lymphocytes % 4.6 % (21.2-54.2); Mean Corpuscular HGB Conc 33.3 GM/DL (32-36); Mean Corpuscular Hemoglobin 29 PG (27-34); Mean Corpuscular Volume 88.1 FL (87-102); Mean Platelet Volume 12.7 FL (9.6-12.0); Monocytes # 0.4 10*3/uL (0.11-0.8); Neutrophils # 18.4 10*3/uL (1.4-7.4); Neutrophils % 92.4 % (38.7-73.9); Red Blood Count 3.71 MC/CUMM (3.8-5.5); Red Cell Distribution Width 14.7 % (9.3-17.3); White Blood Count 19.9 T/CUMM (4-12)
[2017-04-23 05:40] LABS: Platelet Count 94 T/CUMM (130-400)
[2017-04-23 05:52] LABS: Albumin 3.4 G/DL (3.4-5.0); Bilirubin,Total 1.1 MG/DL (0.2-1.0); Calcium 8.4 MG/DL (8.5-10.1); Osmolality,Calculated 276.5 MOS/KG (273-304); Potassium 3.5 MMOL/L (3.5-5.1); Total Protein 6.2 G/DL (6.4-8.3)
[2017-04-23 05:58] LABS: Band Neutrophils 2 % (0-10); Lymphocytes 1 % (20-55); Segmented Neutrophils 95 % (50-85); Total Cells Counted 100
[2017-04-23 05:59] LABS: Acanthocytes 2+; Burr Cells Slight; Hypochromasia 1+
[2017-04-23 06:00] LABS: Microcytosis 1+; Platelet Estimate Decreased
[2017-04-23] MEDS: LEVOTHYROXINE 100 MCG VIAL IV SCH (06:21)
--- NOTE | 2017-04-23 07:25 | Urology Progress Note ---
Assessment and Plan - Time spent with patient Time spent with patient: Less than 30 minutes (1) Acute urinary retention Status: Acute Assessment and plan: Acute urinary retention, possibly chronic urinary retention by history. I agree with Steinberg drainage. Maintain Steinberg catheter until up and ambulatory. He may need intermittent catheterization. Steinberg catheter may be removed when medically indicated by his primary service. Then I would start post void catheterization to establish PVRs. Should be done at least every 6 hours. Current Visit: Yes (2) Acute renal failure Status: Acute Assessment and plan: Creatinine 2.00 when admitted, and has risen to 2.40 this morning. He is on IV fluids. His EF is 20%, and this is likely related with his medical condition. His catheter is draining well and renal ultrasound with no evidence of hydronephrosis. I do not feel this is a postobstructive problem. Current Visit: Yes (3) Anemia Status: Acute Assessment and plan: Patient has a history of anemia, anticoagulation with Eliquis, and atrial fibrillation. This all would be indicators that we should not try any surgical intervention for his prostate. I have discussed with his daughter that he is not a great surgical candidate, and if remains urinary retention will likely need intermittent catheterization. Current Visit: Yes (4) BPH (benign prostatic hyperplasia) Status: Acute Assessment and plan: Start finasteride 5 mg daily I have discussed with Dr. Tovar that I would like to add Flomax 0.4 mg at bedtime if his blood pressure becomes more stable. Given his near syncope and hypotension, this is not a good option currently. I have reviewed his old images, his laboratory values, and his records. Discussed with his daughter that his urinary retention may be due to BPH that is chronic. At this time will try conservative management. Thanks for the opportunity to participate in this patient's care. Will follow along with you. Current Visit: Yes (5) Near syncope Status: Acute Current Visit: Yes Urology - PN: Subj Interval history: Steinberg catheter is draining well. The patient has a rising creatinine. He has multiple medical issues, and EF is 20%. No other acute urologic problems. Exam - Constitutional Vitals: Period Temp Pulse Resp BP Sys/Walker Pulse Ox Last 24 Hr 96.1 F-96.6 F 60-69 13-21 95-117/53-73 90-100 General appearance: other (Ill-appearing) - Head Head exam: Present: atraumatic - Eye Eye exam: Absent: scleral icterus - ENT ENT exam: Present: other (CPAP mask in place) - Respiratory Respiratory exam: Absent: accessory muscle use, stridor - Cardiovascular Cardiovascular exam: Present: other (Warm and perfused) - GI/Abdominal GI/Abdominal exam: Present: normal bowel sounds, soft, other (Nonpalpable bladder). Absent: tenderness, rebound - Genitourinary Genitourinary: penis with no lesions or discharge, other (Steinberg catheter in place draining clear urine) - Back Exam Back exam: Absent: CVA tenderness (L), CVA tenderness (R) - Neurological Exam Neurological exam: Present: alert, other (Arousable) Results - Labs CBC & BMP: 04/23/17 04:28 04/23/17 04:28 Lab Results: I have reviewed the past 24 hour labs - Diagnostic Findings Procedure: Ultrasound: image reviewed by me, report reviewed by me (Renal ultrasound with no hydronephrosis or obstruction noted.)
[2017-04-23] MEDS ORDERED: FUROSEMIDE 20 MG/2 ML VIAL IV SCH (09:00)
--- NOTE | 2017-04-23 09:08 | Cardiology Consult Note ---
Assessment and Plan - Time spent with patient Time spent with patient: Greater than 30 minutes (1) Nonischemic cardiomyopathy Status: Acute Assessment and plan: SEE PLAN OF CARE LISTED BELOW. Current Visit: Yes (2) Congestive heart failure Status: Chronic Assessment and plan: SEE PLAN OF CARE LISTED BELOW. Current Visit: Yes Qualifiers: Congestive heart failure type: combined Congestive heart failure chronicity : chronic Qualified Code(s): I50.42 - Chronic combined systolic (congestive) and diastolic (congestive) heart failure (3) Hypertension Status: Chronic Assessment and plan: SEE PLAN OF CARE LISTED BELOW. Current Visit: No (4) Dyslipidemia Status: Chronic Assessment and plan: SEE PLAN OF CARE LISTED BELOW. Current Visit: Yes (5) Obstructive sleep apnea Status: Chronic Assessment and plan: SEE PLAN OF CARE LISTED BELOW. Current Visit: Yes (6) History of TIA (transient ischemic attack) Status: Chronic Assessment and plan: SEE PLAN OF CARE LISTED BELOW. Current Visit: No (7) Pacemaker Status: Chronic Assessment and plan: SEE PLAN OF CARE LISTED BELOW. Current Visit: No (8) Acute on chronic renal failure Status: Acute Assessment and plan: SEE PLAN OF CARE LISTED BELOW. Current Visit: Yes Qualifiers: Chronic kidney disease stage: stage 3 (moderate) (9) Abnormal liver enzymes Status: Acute Assessment and plan: SEE PLAN OF CARE LISTED BELOW. Current Visit: Yes (10) Anemia Status: Acute Assessment and plan: SEE PLAN OF CARE LISTED BELOW. Current Visit: Yes (11) Atrial fibrillation Status: Chronic Assessment and plan: SEE PLAN OF CARE LISTED BELOW. Current Visit: Yes Qualifiers: Atrial fibrillation type: paroxysmal Qualified Code(s): I48.0 - Paroxysmal atrial fibrillation (12) BPH (benign prostatic hyperplasia) Status: Chronic Assessment and plan: SEE PLAN OF CARE LISTED BELOW. Current Visit: Yes (13) Hypoglycemia Status: Resolved Assessment and plan: SEE PLAN OF CARE LISTED BELOW. Current Visit: Yes (14) Hypothyroidism Status: Acute Assessment and plan: SEE PLAN OF CARE LISTED BELOW. Current Visit: Yes (15) Near syncope Status: Resolved Assessment and plan: SEE PLAN OF CARE LISTED BELOW. Current Visit: Yes (16) Tricuspid regurgitation Status: Acute Assessment and plan: SEE PLAN OF CARE LISTED BELOW. Current Visit: Yes History of Present Illness - Data of Consult Patient: known to practice within the last 3 years Consult date: 04/23/17 Requesting Physician: Vesna Tovar - Consult Narrative Reason for consult: Cardiomyopathy History of present illness: [employer] MECH[employer]IC: Dr. Parham Mr. Casillas is a 86 year old male without known history of coronary artery disease, routinely followed by Dr. Parham. Cardiac risk factors include: Hypertension, dyslipidemia, advanced age, sedentary lifestyle and family history of CAD (sister). Lifetime non-smoker. Past medical history includes: Paroxysmal atrial fibrillation (chronically anticoagulated with Eliquis), obstructive sleep apnea (CPAP nightly), TIA, BPH, hard of hearing, sick sinus syndrome (status post pacemaker), chronic renal failure and nonischemic cardio myopathy. No record of heart catheterization or stress test noted. Patient was last seen in the cardiology clinic December 2016. At that time, he underwent echocardiogram which revealed ejection fraction of 30%. Moderate tricuspid regurgitation and pulmonary hypertension with PA pressure 32 mmHg. Patient presented to [facility] with complaints of weakness and near syncope. Upon arrival to the ED he was noted in acute renal failure, anemic, dehydrated, hyperglycemic, hypotensive with elevated LFTs. He was also noted to be severely hypothyroid. IV Synthroid initiated. Adrenal insufficiency was suspected. However,Cosyntropin stem test was normal. Statin placed on hold for elevated LFTs. Eliquis placed on hold for anemia, GI consulted. Atrial fibrillation has been well rate controlled. Echocardiogram was performed and revealed an ejection fraction of 20%. Grade 3 diastolic dysfunction. Moderately dilated right ventricle. Moderate MR. Severe TR. For this reason, cardiology was consulted to further evaluate. Patient has been without complaints of chest pain, heaviness or tightness. No overt heart failure noted clinically. BNP is mildly elevated. However, this is in the setting of renal insufficiency. Low-dose IV Lasix initiated per attending. This will be continued. Will monitor renal function closely. Patient's cardiomyopathy was deemed nonischemic per Dr. Parham. However, I cannot find diagnostic heart catheterization report in EMR. EF 35-45% May 2014. Ejection fraction December 2016 30%. This hospitalization echocardiogram reveals a worsening ejection fraction of 20%. No anginal symptoms. No overt heart failure. The patient has never undergone diagnostic heart catheterization, we can consider invasive cardiac workup once his acute comorbidities improve. We could also consider upgrade to Bi V ICD as patient's EF has not improved with medical management. I have reinitiated beta-blockade today. Unable to tolerate JORDAN inhibitor or ARB due to fear of worsening renal function. Can consider initiation of Imdur/hydralazine if patient's blood pressure will tolerate. Will further discuss with Dr. Le and await his additional recommendations. IMPRESSION AND PLAN 1. NONISCHEMIC CARDIOMYOPATHY - Patient's cardiomyopathy was deemed nonischemic per Dr. Parham. However, I cannot find diagnostic heart catheterization report in EMR. EF 35-45% May 2014. Ejection fraction December 2016 30%. This hospitalization echocardiogram reveals a worsening ejection fraction of 20%. No anginal symptoms. No overt heart failure. The patient has never undergone diagnostic heart catheterization, we can consider invasive cardiac workup once his acute comorbidities improve. We could also consider upgrade to Bi V ICD as patient's EF has not improved with medical management. I have reinitiated beta-blockade today. Unable to tolerate JORDAN inhibitor or ARB due to fear of worsening renal function. Can consider initiation of Imdur/ hydralazine if patient's blood pressure will tolerate. Will further discuss with Dr. Le and await his additional recommendations. 2. HISTORY OF CHF - Systolic and diastolic dysfunction. EF 20%. No clinical signs of overt heart failure. BNP mildly elevated at 570 in the setting of elevated creatinine, 2.4. IV fluids discontinued per attending. Continue low- dose IV Lasix, monitor BMP. Beta-blockade added today. Unable to tolerate JORDAN inhibitor or ARB due to renal insufficiency. Can consider initiation of Imdur/ hydralazine if patient's blood pressure will tolerate. 3. HYPERTENSION - Well controlled with beta-blockade. 4. DYSLIPIDEMIA - Statin on hold due to elevated liver enzymes. Lipid panel in the morning. Could consider addition of Zetia. 5. HISTORY OF PAROXYSMAL ATRIAL FIBRILLATION - Rate controlled. Paced rhythm. Beta-ranjana reinitiated. Chads Vasc 7. Eliquis on hold pending GI evaluation. Recommend this be reinitiated as patient is a high stroke risk when GI feels that it can restarted safely. 6. OBSTRUCTIVE SLEEP APNEA - Continue CPAP nightly 7. HISTORY OF TIA - Eliquis currently on hold pending GI workup. 8. BPH, URINARY RETENTION - Continue Steinberg. Urology following. 9. HYPOGLYCEMIA - Resolved. 10. ELEVATED LIVER ENZYMES - Iimproving. Monitor with daily LFTs. GI following. Suspect this is contributing to patient's hyperglycemia. 11. HYPOTHYROIDISM - Continue replacement. Management per attending. 12. ANEMIA - Holding Eliquis pending GI evaluation. H&H is stable. Stool negative for occult blood. Recommend this be reinitiated as patient is a high stroke risk when GI feels that it can restarted safely. 13. PACEMAKER - Sick sinus syndrome. Chronic, stable. 14. ACUTE ON CHRONIC RENAL FAILURE - Creatinine is rising, today 2.4. Daily BMP. Avoiding nephrotoxic medications. 15. SEVERE TR - Afterload reduction as tolerated. CC: Vesna Tovar MD - Home Medications and Allergies Home Medications: Home Medications Medication Instructions Recorded Confirmed Type Apixaban [Eliquis] 2.5 mg PO BID 04/20/17 04/21/17 History Atorvastatin Calcium 80 mg PO DAILY 04/20/17 04/21/17 History Furosemide [Furosemide] 40 mg PO DAILY 04/20/17 04/21/17 History Magnesium Chloride [Slow Mag] 64 mg PO BID 04/20/17 04/21/17 History Metoprolol Succinate Xl [Toprol Xl] 25 mg PO BID 04/20/17 04/21/17 History Potassium Chloride 10 meq PO DAILY 04/20/17 04/21/17 History Spironolactone [Spironolactone] 12.5 mg PO MOWEFR 04/20/17 04/21/17 History Allergies/Adverse Reactions: Allergies Allergy/AdvReac Type Severity Reaction Status Date / Time No Known Allergies Allergy Verified 04/20/17 14:32 - Constitutional Constitutional: Present: as per HPI, fatigue, weakness. Absent: chills, fever(s ), lethargy, malaise, weight gain, weight loss - Cardiovascular Cardiovascular: Present: as per HPI. Absent: chest pain at rest, chest pain with activity, diaphoresis, dyspnea, dyspnea on exertion, edema, radiating jaw, neck or arm pain, orthopnea, palpitations, PND - Respiratory Respiratory: Present: as per HPI, snoring. Absent: cough, dyspnea, dyspnea on exertion, wheezing, pain on inspiration, change in phlegm color - Gastrointestinal Gastrointestinal: Present: as per HPI. Absent: coffee ground emesis, hematemesis, hematochezia, melena, nausea, vomiting - Neurological Neurological: Present: as per HPI, syncope, other (Near syncope prior to admission). Absent: abnormal gait, abnormal speech, behavioral changes, dizziness Medical,Surgical,& Family Hx - Medical History Cardio: History of: Cardiac Dysrhythmia (A. fib), Hypertension, CT, Pacemaker, Cardiovascular Problems (History of atrial fibrillation on chronic anticoagulation) Neurology: History of: TIA HEENT: History of: HEENT Problems (Very hard of hearing) Endocrine: History of: Dyslipidemia Respiratory: History of: Obstructive Sleep Apnea Genitourinary: History of: Prostate Problems (History of urinary retention several years ago requiring CIC) Hematology: History of: Anemia - Surgical History Cardiac Surgeries: Sugical HX of: Carotid Endarterectomy, Vascular Access Devices (pacer) HEENT Surgeries: Surgical HX of: Carotid Endarterectomy - Family History Family History: Reports;: Family Cancer (prostate ca ), Family Diabetes, Family Heart Disease (Sister) Denies;: Family Stroke - Social History Smoking Status: Never smoker Frequency of Alcohol Use: None Type of Drug Use: None Marital Status: Lives With:: Spouse Functional capacity: independent ambulation Physical Examination Vital Signs Temp Pulse Resp BP Pulse Ox 96.9 F L 60 18 105/59 95 04/20/17 14:21 04/20/17 14:21 04/20/17 14:21 04/20/17 14:21 04/20/17 14:21 Exam: General: Appears well with no apparent distress. Pleasant and cooperative. Appears comfortable. HEENT: PERRL, normocephalic, atraumatic. Mucous membranes moist. Very hard of hearing. Neck: No JVD/HJR, no thyromegaly or lymphadenopathy noted. No carotid bruit appreciated Cardiac: Irregular rhythm, rate controlled. No murmur rub or gallop. Lungs: Clear to auscultation without accessory muscle use to assist the respiratory pattern. Oxygen via nasal cannula. Abdomen: Soft, bowel sounds normoactive. Nontender and nondistended. No abdominal bruit or thrill noted. No masses noted. Extremities: No clubbing, cyanosis noted. No edema noted. Upper extremity pulses 2+. Lower extremity pulses 2+. Capillary refill less than 3 seconds. Skin: No unusual lesions or rashes. No skin breakdown appreciated. Neuro: Awake, alert and oriented 3. Moves all extremities well without hemiparesis or paralysis. No essential tremor is appreciated. Result/EKG - Labs CBC & BMP: 04/23/17 04:28 04/23/17 04:28 Lab Results: I have reviewed the past 24 hour labs Labs: Laboratory Results - last 24 hr 04/22/17 04/22/17 04/22/17 09:07 11:25 12:34 WBC RBC Hgb Hct MCV MCH MCHC RDW Plt Count MPV Neut % (Auto) Lymph % (Auto) Pike % (Auto) Eos % (Auto) Baso % (Auto) Neut # (Auto) Lymph # (Auto) Pike # (Auto) Eos # (Auto) Baso # (Auto) Total Counted Immature Gran % Nucleated RBC % Immature Gran # Segmented Neutrophils Band Neutrophils Lymphocytes Monocytes Nucleated RBCs # Platelet Estimate Immature Plt Fraction Hypochromasia Microcytosis Berna Cells Acanthocytes (Spur) Sodium Potassium Chloride Carbon Dioxide Anion Gap BUN Creatinine GFR Calculation BUN/Creatinine Ratio Glucose POC Glucose 160 H 162 H 147 H Calculated Osmolality Calcium Total Bilirubin AST ALT Alkaline Phosphatase Ammonia B-Natriuretic Peptide Total Protein Albumin Globulin Albumin/Globulin Ratio Free T4 04/22/17 04/22/17 04/22/17 13:18 14:07 15:00 WBC RBC Hgb Hct MCV MCH MCHC RDW Plt Count MPV Neut % (Auto) Lymph % (Auto) Pike % (Auto) Eos % (Auto) Baso % (Auto) Neut # (Auto) Lymph # (Auto) Pike # (Auto) Eos # (Auto) Baso # (Auto) Total Counted Immature Gran % Nucleated RBC % Immature Gran # Segmented Neutrophils Band Neutrophils Lymphocytes Monocytes Nucleated RBCs # Platelet Estimate Immature Plt Fraction Hypochromasia Microcytosis [place] Cells Acanthocytes (Spur) Sodium Potassium Chloride Carbon Dioxide Anion Gap BUN Creatinine GFR Calculation BUN/Creatinine Ratio Glucose POC Glucose 159 H 132 H 134 H Calculated Osmolality Calcium Total Bilirubin AST ALT Alkaline Phosphatase Ammonia B-Natriuretic Peptide Total Protein Albumin Globulin Albumin/Globulin Ratio Free T4 04/22/17 04/22/17 04/22/17 16:04 18:08 20:34 WBC RBC Hgb Hct MCV MCH MCHC RDW Plt Count MPV Neut % (Auto) Lymph % (Auto) Pike % (Auto) Eos % (Auto) Baso % (Auto) Neut # (Auto) Lymph # (Auto) Pike # (Auto) Eos # (Auto) Baso # (Auto) Total Counted Immature Gran % Nucleated RBC % Immature Gran # Segmented Neutrophils Band Neutrophils Lymphocytes Monocytes Nucleated RBCs # Platelet Estimate Immature Plt Fraction Hypochromasia Microcytosis [place] Cells Acanthocytes (Spur) Sodium Potassium Chloride Carbon Dioxide Anion Gap BUN Creatinine GFR Calculation BUN/Creatinine Ratio Glucose POC Glucose 111 H 124 H 132 H Calculated Osmolality Calcium Total Bilirubin AST ALT Alkaline Phosphatase Ammonia B-Natriuretic Peptide Total Protein Albumin Globulin Albumin/Globulin Ratio Free T4 04/22/17 04/23/17 04/23/17 22:05 00:31 02:13 WBC RBC Hgb Hct MCV MCH MCHC RDW Plt Count MPV Neut % (Auto) Lymph % (Auto) Pike % (Auto) Eos % (Auto) Baso % (Auto) Neut # (Auto) Lymph # (Auto) Pike # (Auto) Eos # (Auto) Baso # (Auto) Total Counted Immature Gran % Nucleated RBC % Immature Gran # Segmented Neutrophils Band Neutrophils Lymphocytes Monocytes Nucleated RBCs # Platelet Estimate Immature Plt Fraction Hypochromasia Microcytosis Berna Cells Acanthocytes (Spur) Sodium Potassium Chloride Carbon Dioxide Anion Gap BUN Creatinine GFR Calculation BUN/Creatinine Ratio Glucose POC Glucose 195 H 174 H 146 H Calculated Osmolality Calcium Total Bilirubin AST ALT Alkaline Phosphatase Ammonia B-Natriuretic Peptide Total Protein Albumin Globulin Albumin/Globulin Ratio Free T4 04/23/17 04/23/17 04/23/17 04:28 04:28 04:28 WBC 19.9 H RBC 3.71 L Hgb 10.9 L Hct 32.7 L MCV 88.1 MCH 29 MCHC 33.3 RDW 14.7 Plt Count 94 L MPV 12.7 H Neut % (Auto) 92.4 H Lymph % (Auto) 4.6 L Pike % (Auto) 2.0 Eos % (Auto) 0.0 Baso % (Auto) 0.1 Neut # (Auto) 18.4 H Lymph # (Auto) 0.9 L Pike # (Auto) 0.4 Eos # (Auto) 0.0 Baso # (Auto) 0.0 Total Counted 100 Immature Gran % 0.9 Nucleated RBC % 0.0 Immature Gran # 0.17 Segmented Neutrophils 95 H Band Neutrophils 2 Lymphocytes 1 L Monocytes 2 Nucleated RBCs # 0.00 Platelet Estimate Decreased Immature Plt Fraction 0.0 Hypochromasia 1+ Microcytosis 1+ Berna Cells Slight Acanthocytes (Spur) 2+ Sodium 132 L Potassium 3.5 Chloride 99 Carbon Dioxide 20 L Anion Gap 16.5 H BUN 44 H Creatinine 2.40 H GFR Calculation 26 BUN/Creatinine Ratio 18.00 Glucose 126 H POC Glucose Calculated Osmolality 276.5 Calcium 8.4 L Total Bilirubin 1.10 H AST 1385 H ALT 823 H Alkaline Phosphatase 150 H Ammonia B-Natriuretic Peptide 570 H Total Protein 6.2 L Albumin 3.4 Globulin 2.8 Albumin/Globulin Ratio 1.2 Free T4 04/23/17 04/23/17 04/23/17 04:28 04:28 06:19 WBC RBC Hgb Hct MCV MCH MCHC RDW Plt Count MPV Neut % (Auto) Lymph % (Auto) Pike % (Auto) Eos % (Auto) Baso % (Auto) Neut # (Auto) Lymph # (Auto) Pike # (Auto) Eos # (Auto) Baso # (Auto) Total Counted Immature Gran % Nucleated RBC % Immature Gran # Segmented Neutrophils Band Neutrophils Lymphocytes Monocytes Nucleated RBCs # Platelet Estimate Immature Plt Fraction Hypochromasia Microcytosis [place] Cells Acanthocytes (Spur) Sodium Potassium Chloride Carbon Dioxide Anion Gap BUN Creatinine GFR Calculation BUN/Creatinine Ratio Glucose POC Glucose 148 H Calculated Osmolality Calcium Total Bilirubin AST ALT Alkaline Phosphatase Ammonia 53 H B-Natriuretic Peptide Total Protein Albumin Globulin Albumin/Globulin Ratio Free T4 0.61 L - EKG EKG results: interpreted by me EKG shows: atrial fibrillation (Ventricularly paced)
[2017-04-23] MEDS: PANTOPRAZOLE 40 MG TABLET PO SCH ×2 (09:48→22:31)
[2017-04-23] MEDS: LACTULOSE 20 GM/30 ML UDCUP PO SCH ×3 (09:48→22:29)
--- NOTE | 2017-04-23 11:37 | Hospitalist Progress Note ---
Assessment and Plan (1) Hypoglycemia Status: Acute Assessment and plan: Resolved. Liver function improving Current Visit: Yes (2) Hypothyroidism Status: Acute Assessment and plan: Will switch to p.o. Synthroid and continue to wean off of stress dose steroids Current Visit: Yes (3) Anemia Status: Acute Assessment and plan: No plans for intervention at this time. Dr. Zavala to see patient today. Nursing reports still having difficulty swallowing Current Visit: Yes (4) Dehydration Status: Acute Assessment and plan: Resolved. We will give diuretic today Current Visit: Yes (5) Acute renal failure Status: Acute Assessment and plan: Chronic renal failure stage III Current Visit: Yes (6) Near syncope Status: Acute Assessment and plan: Resolved Current Visit: Yes (7) CVA (cerebral vascular accident) Status: Acute Assessment and plan: hold eliquis for now Current Visit: Yes (8) Atrial fibrillation Status: Acute Assessment and plan: hold eliquis for now, currently pacing Current Visit: Yes (9) Abnormal liver enzymes Status: Acute Assessment and plan: improving, cont lactulose for elevated ammonia Current Visit: Yes (10) BPH (benign prostatic hyperplasia) Status: Acute Assessment and plan: cont proscar Current Visit: Yes (11) Systolic and diastolic CHF, acute Status: Acute Assessment and plan: ef of 20%, restart diuretic Current Visit: Yes Hospitalist: Subjective Interval history: Called daughter to give her an update bed last night and this morning. Patient looks so much better today. He is stable he will get his last dose of IV Synthroid today and will convert him to p.o. His blood sugars are stable we will lower his stress dose steroids and begin to wean him off. He is alert and oriented 3 despite his elevated ammonia level. Exam - Constitutional Vitals: Period Temp Pulse Resp BP Sys/Walker Pulse Ox Last 24 Hr 96.1 F-97.1 F 60-69 12-20 95-118/57-73 90-100 Exam: Heart Rate-[RRR] Lungs-[clear but diminished] GI-[+bs soft, NT] Ext-[slight edema] Neuro [Motor 5/5], [alert and oriented times 3 psych [was not mood and affect General [no acute distress] Results - Labs CBC & BMP: 04/23/17 04:28 04/23/17 04:28 Lab Results: I have reviewed the past 24 hour labs Labs: Liver enzymes trending down
--- NOTE | 2017-04-23 11:43 | Gastrointestinal Progress Note ---
<Rhina Woodwrad Lacey - Last Filed: 04/23/17 11:41> Assessment and Plan (1) Anemia Status: Acute Assessment and plan: 04/23-H&H stable at . No reports of bleeding. ST evaluation noted. Eliquis held on admission beginning on 04/21. No present plans to proceed with endoscopy unless dysphagia continues. Plan an addendum to follow by Dr. Zavala. 04/22- . No overt bleeding. LFTs elevated today with reported hypotensive episode. Plan and addendum to follow by Dr Zavala. 04/21-admitted with weakness and near syncope, with history of atrial fibrillation and Eliquis daily use. No known prior history of anemia in the past. Also notation of elevated LFTs with prior history of this as well. Stool for occult blood are pending at this time. Known on prior endoscopy in the past. Plan an addendum to followed by Dr. Zavala. Current Visit: Yes Gastroenterology - PN: Subj Interval history: CC: Anemia, elevated LFTs Patient is seen, awake and alert lying in bed with family at side. Patient has no complaints of abdominal pain. He is tolerating his diet his appetite is improving. There are no reports of overt bleeding. H&H remained stable at . LFTs are beginning to trend downward as well. Abdomen soft, nontender. He is going to be transferred to the floor today. Discussion with Dr. Tovar regarding inquiry on proceeding with endoscopy due to patient complaining of some difficulty swallowing. He did have an ST eval and yesterday with recommendations for mechanical soft diet with no overt signs and symptoms of aspiration with any consistency. ROS: Denies shortness of breath or chest pain Exam (Progress Note) - Constitutional Vitals: Period Temp Pulse Resp BP Sys/Walker Pulse Ox Last 24 Hr 96.1 F-97.1 F 60-69 12-20 95-118/57-73 90-100 General appearance: normal weight, no acute distress - Head Head exam: Present: normal inspection, normocephalic - Eye Eye exam: Present: other (Lids and conjunctivae are unremarkable). Absent: scleral icterus - ENT ENT exam: Present: normal exam, normal oropharynx - Neck Neck exam: Present: normal inspection - Respiratory Respiratory exam: Present: clear to auscultation bilaterally. Absent: rales, rhonchi, wheezes - Cardiovascular Cardiovascular exam: Present: regular rate and rhythm. Absent: diastolic murmur , JVD, systolic murmur - GI/Abdominal GI/Abdominal exam: Present: normal bowel sounds, soft. Absent: ascites, distended, mass, organomegaly, tenderness - Extremities Exam Extremities exam: Present: normal inspection, full ROM - Back Exam Back exam: Present: normal inspection - Neurological Exam Neurological exam: Present: alert, oriented X3 - Psychiatric Psychiatric exam: Present: normal affect, normal mood - Skin Skin exam: Present: normal color, warm Results - Labs CBC & BMP: 04/23/17 04:28 04/23/17 04:28 Lab Results: I have reviewed the past 24 hour labs <Timothy Zavala - Last Filed: 04/23/17 21:16> Exam (Progress Note) - Constitutional Vitals: Period Temp Pulse Resp BP Sys/Walker Pulse Ox Last 24 Hr 96.4 F-98 F 60-64 12-20 100-118/58-71 93-100 Results - Labs CBC & BMP: 04/23/17 04:28 04/23/17 04:28
[2017-04-23] MEDS: ATORVASTATIN 80 MG TABLET PO SCH (15:27)
[2017-04-23] MEDS ORDERED: ATORVASTATIN 80 MG TABLET PO SCH (21:00)
[2017-04-23] MEDS: cefTRIAXone 1,000 MG in SODIUM CHLORIDE 0.9% 100 ML IV SCH (22:27)
[2017-04-23] MEDS: FINASTERIDE 5 MG TABLET PO SCH (22:28)
[2017-04-23] MEDS: hydrALAZINE 10 MG TABLET PO SCH (22:28)
[2017-04-23] MEDS: APIXABAN 2.5 MG TABLET PO SCH (22:28)
[2017-04-23] MEDS: FUROSEMIDE 20 MG/2 ML VIAL IV SCH (22:29)
[2017-04-23] MEDS: CARVEDILOL 3.125 MG TABLET PO SCH (22:29)
[2017-04-24] MEDS: HYDROCORTISONE 100 MG VIAL IV SCH (01:12)
[2017-04-24 04:55] LABS: Hematocrit 27.9 VOL% (42.0-52.0); Hemoglobin 9.7 GM/DL (14.0-18.0); Immature Granulocytes Absolute 0.12 #; Lymphocytes # 0.7 10*3/uL (1.4-4.0); Mean Corpuscular HGB Conc 34.8 GM/DL (32-36); Mean Corpuscular Hemoglobin 29 PG (27-34); Mean Corpuscular Volume 83.5 FL (87-102); Mean Platelet Volume 12.6 FL (9.6-12.0); Monocytes # 0.3 10*3/uL (0.11-0.8); NRBC # 0.03 10*3/uL; Neutrophils # 11.2 10*3/uL (1.4-7.4); Platelet Count 82 T/CUMM (130-400); Red Blood Count 3.34 MC/CUMM (3.8-5.5); Red Cell Distribution Width 14.8 % (9.3-17.3); White Blood Count 12.3 T/CUMM (4-12)
[2017-04-24 05:24] LABS: Acanthocytes 1+; Band Neutrophils 1 % (0-10); Hypochromasia Slight; Lymphocytes 3 % (20-55); Microcytosis 1+; Ovalocytes Slight; Platelet Estimate Decreased; Segmented Neutrophils 94 % (50-85); Total Cells Counted 100
[2017-04-24 05:25] LABS: Giant Platelets Few; Risk Ratio 4.11
[2017-04-24 05:27] LABS: Albumin 3.4 G/DL (3.4-5.0); Bilirubin,Total 1.2 MG/DL (0.2-1.0); Calcium 8.2 MG/DL (8.5-10.1); Osmolality,Calculated 284.1 MOS/KG (273-304); Potassium 3.1 MMOL/L (3.5-5.1); Total Protein 6.1 G/DL (6.4-8.3)
[2017-04-24] MEDS: LEVOTHYROXINE 125 MCG TABLET PO SCH (06:32)
[2017-04-24 07:46] LABS: Hematocrit 27.6 VOL% (42.0-52.0); Hemoglobin 9.6 GM/DL (14.0-18.0)
--- NOTE | 2017-04-24 08:01 | Cardiology Progress Note ---
Assessment and Plan (1) Nonischemic cardiomyopathy Status: Acute Assessment and plan: SEE PLAN OF CARE LISTED BELOW. Current Visit: Yes (2) Congestive heart failure Status: Chronic Assessment and plan: SEE PLAN OF CARE LISTED BELOW. Current Visit: Yes Qualifiers: Congestive heart failure type: combined Congestive heart failure chronicity : chronic Qualified Code(s): I50.42 - Chronic combined systolic (congestive) and diastolic (congestive) heart failure (3) Hypertension Status: Chronic Assessment and plan: SEE PLAN OF CARE LISTED BELOW. Current Visit: No (4) Dyslipidemia Status: Chronic Assessment and plan: SEE PLAN OF CARE LISTED BELOW. Current Visit: Yes (5) Obstructive sleep apnea Status: Chronic Assessment and plan: SEE PLAN OF CARE LISTED BELOW. Current Visit: Yes (6) History of TIA (transient ischemic attack) Status: Chronic Assessment and plan: SEE PLAN OF CARE LISTED BELOW. Current Visit: No (7) Pacemaker Status: Chronic Assessment and plan: SEE PLAN OF CARE LISTED BELOW. Current Visit: No (8) Acute on chronic renal failure Status: Acute Assessment and plan: SEE PLAN OF CARE LISTED BELOW. Current Visit: Yes Qualifiers: Chronic kidney disease stage: stage 3 (moderate) (9) Abnormal liver enzymes Status: Acute Assessment and plan: SEE PLAN OF CARE LISTED BELOW. Current Visit: Yes (10) Anemia Status: Acute Assessment and plan: SEE PLAN OF CARE LISTED BELOW. Current Visit: Yes (11) Atrial fibrillation Status: Chronic Assessment and plan: SEE PLAN OF CARE LISTED BELOW. Current Visit: Yes Qualifiers: Atrial fibrillation type: paroxysmal Qualified Code(s): I48.0 - Paroxysmal atrial fibrillation (12) BPH (benign prostatic hyperplasia) Status: Chronic Assessment and plan: SEE PLAN OF CARE LISTED BELOW. Current Visit: Yes (13) Hypoglycemia Status: Resolved Assessment and plan: SEE PLAN OF CARE LISTED BELOW. Current Visit: Yes (14) Hypothyroidism Status: Acute Assessment and plan: SEE PLAN OF CARE LISTED BELOW. Current Visit: Yes (15) Near syncope Status: Resolved Assessment and plan: SEE PLAN OF CARE LISTED BELOW. Current Visit: Yes (16) Tricuspid regurgitation Status: Acute Assessment and plan: SEE PLAN OF CARE LISTED BELOW. Current Visit: Yes Cardiology - PN: Subj Interval history: CHIEF ENGINEER'S HELPER: Dr. Parham SUMMARY Mr. Casillas is a 86 year old male without known history of coronary artery disease, routinely followed by Dr. Parham. Cardiac risk factors include: Hypertension, dyslipidemia, advanced age, sedentary lifestyle and family history of CAD (sister). Lifetime non-smoker. Past medical history includes: Paroxysmal atrial fibrillation (chronically anticoagulated with Eliquis), obstructive sleep apnea (CPAP nightly), TIA, BPH, hard of hearing, sick sinus syndrome (status post pacemaker), chronic renal failure and nonischemic cardio myopathy. No record of heart catheterization or stress test noted. Patient was last seen in the cardiology clinic December 2016. At that time, he underwent echocardiogram which revealed ejection fraction of 30%. Moderate tricuspid regurgitation and pulmonary hypertension with PA pressure 32 mmHg. Patient presented to [facility] with complaints of weakness and near syncope. Hospitalization complicated by acute renal failure, anemia, hypoglycemia, hypotension and elevated LFTs. He was also noted to be severely hypothyroid. IV Synthroid initiated. Adrenal insufficiency was suspected. However,Cosyntropin stem test was normal. Statin placed on hold for markedly elevated LFTs. GI on board working up anemia. Atrial fibrillation has been well rate controlled. Echocardiogram was performed and revealed grade 3 diastolic dysfunction. Moderately dilated right ventricle. Moderate MR. Severe TR. Ejection fraction of 20%. For this reason, cardiology was consulted to further evaluate. Patient has been without complaints of chest pain, heaviness or tightness. No overt heart failure noted clinically. BNP mildly elevated, in the setting of renal insufficiency. 2016 Patient seen and examined in the CCU. He is doing very well this morning without complaints. Denies chest pain, heaviness and tightness. Denies shortness of breath. No orthopnea. Diuresed well overnight. However, weight has increased 2 pounds. At this point, we will continue with patient's IV Lasix, beta-blockade and Imdur/hydralazine combo. Monitor daily BMP. He may be a candidate for INSPECTOR PRECISION ASSEMBLY D upgrade, once recovers from acute issues. Continue beta-blockade, hydralazine and Imdur. Unable to tolerate JORDAN inhibitor or ARB due to fear of worsening renal function. Patient continues to be in atrial fibrillation. Rate controlled. Continue Eliquis. Pacemaker will be interrogated today. Patient is doing remarkably well from a cardiac standpoint. Further recommendations to follow per Dr. Le. IMPRESSION AND PLAN 1. NONISCHEMIC CARDIOMYOPATHY - Patient's cardiomyopathy was deemed nonischemic per Dr. Parham. This hospitalization echocardiogram reveals a worsening ejection fraction of 20%. He may be a candidate for INSPECTOR PRECISION ASSEMBLY D upgrade, once recovers from acute issues. Continue beta-blockade, hydralazine and Imdur. Unable to tolerate JORDAN inhibitor or ARB due to fear of worsening renal function. 2. HISTORY OF CHF - Systolic and diastolic dysfunction. EF 20%. BNP mildly elevated at 570 in the setting of elevated creatinine. Patient diuresed well overnight. However, weight has increased 2 pounds. We will continue with IV Lasix, beta-blockade and Imdur/hydralazine combination. Unable to tolerate JORDAN inhibitor or ARB due to renal insufficiency. He may be a candidate for INSPECTOR PRECISION ASSEMBLY D upgrade, once recovers from acute issues. 3. HYPERTENSION - Well controlled with beta-blockade. 4. DYSLIPIDEMIA - Statin on hold due to elevated liver enzymes. LDL 78. 5. HISTORY OF PAROXYSMAL ATRIAL FIBRILLATION - Rate controlled. Paced rhythm. Continue beta-blockade. Chads Vasc 7. Continue Eliquis. Pacemaker we will be interrogated today. 6. OBSTRUCTIVE SLEEP APNEA - Continue CPAP nightly 7. HISTORY OF TIA - Continue Eliquis. 8. BPH, URINARY RETENTION - Continue Steinberg. Urology following. 9. HYPOGLYCEMIA - Resolved. 10. ELEVATED LIVER ENZYMES - Improving. Monitor with daily LFTs. GI following. Hold statin. 11. HYPOTHYROIDISM - Continue replacement. Management per attending. 12. ANEMIA - H&H trended down overnight. Stool negative for occult blood. Continue with daily CBC. Defer management to GI. 13. PACEMAKER - Sick sinus syndrome. Pacemaker interrogation today. 14. ACUTE ON CHRONIC RENAL FAILURE - Creatinine trending down 2.2. Daily BMP. Avoiding nephrotoxic medications. 15. SEVERE TR - Afterload reduction as tolerated. Continue with Lasix 20 mg twice daily. - Exam (Progress Note) - Constitutional Vitals: Period Temp Pulse Resp BP Sys/Walker Pulse Ox Last 24 Hr 96.3 F-98 F 60-62 12-20 101-118/60-71 93-99 Exam: General: Appears well with no apparent distress. Pleasant and cooperative. Appears comfortable. HEENT: PERRL, normocephalic, atraumatic. Mucous membranes moist. Very hard of hearing. Neck: No JVD/HJR, no thyromegaly or lymphadenopathy noted. No carotid bruit appreciated Cardiac: Irregular rhythm, rate controlled. No murmur rub or gallop. Lungs: Clear to auscultation without accessory muscle use to assist the respiratory pattern. Oxygen via nasal cannula. Abdomen: Soft, bowel sounds normoactive. Nontender and nondistended. No abdominal bruit or thrill noted. No masses noted. Extremities: No clubbing, cyanosis noted. No edema noted. Upper extremity pulses 2+. Lower extremity pulses 2+. Capillary refill less than 3 seconds. Skin: No unusual lesions or rashes. No skin breakdown appreciated. Neuro: Awake, alert and oriented 3. Moves all extremities well without hemiparesis or paralysis. No essential tremor is appreciated. Result/EKG - Labs CBC & BMP: 04/24/17 07:36 04/24/17 03:59 Lab Results: I have reviewed the past 24 hour labs Labs: Laboratory Results - last 24 hr 04/21/17 04/23/17 04/23/17 16:15 08:34 12:25 WBC RBC Hgb Hct MCV MCH MCHC RDW Plt Count MPV Neut % (Auto) Lymph % (Auto) [place] % (Auto) Eos % (Auto) Baso % (Auto) Neut # (Auto) Lymph # (Auto) [place] # (Auto) Eos # (Auto) Baso # (Auto) Total Counted Immature Gran % Nucleated RBC % Immature Gran # Segmented Neutrophils Band Neutrophils Lymphocytes Monocytes Nucleated RBCs # Platelet Estimate Giant Platelets Immature Plt Fraction Hypochromasia Microcytosis Ovalocytes Acanthocytes (Spur) Morphology Comment Sodium Potassium Chloride Carbon Dioxide Anion Gap BUN Creatinine GFR Calculation BUN/Creatinine Ratio Glucose POC Glucose 136 H 186 H Calculated Osmolality Calcium Total Bilirubin AST ALT Alkaline Phosphatase Total Protein Albumin Globulin Albumin/Globulin Ratio Triglycerides Cholesterol LDL Cholesterol VLDL Cholesterol HDL Cholesterol Heart Disease Risk Ratio Human Growth Hormone 1.06 H 04/23/17 04/24/17 04/24/17 16:37 00:04 03:59 WBC 12.3 H D RBC 3.34 L Hgb 9.7 L Hct 27.9 L MCV 83.5 L MCH 29 MCHC 34.8 RDW 14.8 Plt Count 82 L MPV 12.6 H Neut % (Auto) 91.0 H Lymph % (Auto) 6.0 L [place] % (Auto) 2.0 Eos % (Auto) 0.0 Baso % (Auto) 0.0 Neut # (Auto) 11.2 H Lymph # (Auto) 0.7 L [place] # (Auto) 0.3 Eos # (Auto) 0.0 Baso # (Auto) 0.0 Total Counted 100 Immature Gran % 1.0 Nucleated RBC % 0.2 Immature Gran # 0.12 Segmented Neutrophils 94 H Band Neutrophils 1 Lymphocytes 3 L Monocytes 2 Nucleated RBCs # 0.03 Platelet Estimate Decreased Giant Platelets Few Immature Plt Fraction 0.0 Hypochromasia Slight Microcytosis 1+ Ovalocytes Slight Acanthocytes (Spur) 1+ Morphology Comment Sodium Potassium Chloride Carbon Dioxide Anion Gap BUN Creatinine GFR Calculation BUN/Creatinine Ratio Glucose POC Glucose 210 H 150 H Calculated Osmolality Calcium Total Bilirubin AST ALT Alkaline Phosphatase Total Protein Albumin Globulin Albumin/Globulin Ratio Triglycerides Cholesterol LDL Cholesterol VLDL Cholesterol HDL Cholesterol Heart Disease Risk Ratio Human Growth Hormone 04/24/17 04/24/17 04/24/17 03:59 03:59 07:29 WBC RBC Hgb Hct MCV MCH MCHC RDW Plt Count MPV Neut % (Auto) Lymph % (Auto) [place] % (Auto) Eos % (Auto) Baso % (Auto) Neut # (Auto) Lymph # (Auto) [place] # (Auto) Eos # (Auto) Baso # (Auto) Total Counted Immature Gran % Nucleated RBC % Immature Gran # Segmented Neutrophils Band Neutrophils Lymphocytes Monocytes Nucleated RBCs # Platelet Estimate Giant Platelets Immature Plt Fraction Hypochromasia Microcytosis Ovalocytes Acanthocytes (Spur) Morphology Comment Sodium 135 L Potassium 3.1 L Chloride 101 Carbon Dioxide 22 Anion Gap 15.1 H BUN 45 H Creatinine 2.20 H GFR Calculation 28 BUN/Creatinine Ratio 20.00 Glucose 146 H POC Glucose 151 H Calculated Osmolality 284.1 Calcium 8.2 L Total Bilirubin 1.20 H AST 904 H ALT 642 H Alkaline Phosphatase 142 H Total Protein 6.1 L Albumin 3.4 Globulin 2.7 Albumin/Globulin Ratio 1.2 Triglycerides 40 Cholesterol 111 LDL Cholesterol 78.0 VLDL Cholesterol 8.0 HDL Cholesterol 27 L Heart Disease Risk Ratio 4.11 Human Growth Hormone 04/24/17 07:36 WBC RBC Hgb 9.6 L Hct 27.6 L MCV MCH MCHC RDW Plt Count MPV Neut % (Auto) Lymph % (Auto) [place] % (Auto) Eos % (Auto) Baso % (Auto) Neut # (Auto) Lymph # (Auto) [place] # (Auto) Eos # (Auto) Baso # (Auto) Total Counted Immature Gran % Nucleated RBC % Immature Gran # Segmented Neutrophils Band Neutrophils Lymphocytes Monocytes Nucleated RBCs # Platelet Estimate Giant Platelets Immature Plt Fraction Hypochromasia Microcytosis Ovalocytes Acanthocytes (Spur) Morphology Comment Sodium Potassium Chloride Carbon Dioxide Anion Gap BUN Creatinine GFR Calculation BUN/Creatinine Ratio Glucose POC Glucose Calculated Osmolality Calcium Total Bilirubin AST ALT Alkaline Phosphatase Total Protein Albumin Globulin Albumin/Globulin Ratio Triglycerides Cholesterol LDL Cholesterol VLDL Cholesterol HDL Cholesterol Heart Disease Risk Ratio Human Growth Hormone Specialty Discharge - Follow Up or Referrals Follow up with: Marty Gayle MD [Physician] - 2 Weeks (2 weeks after discharge home)
--- NOTE | 2017-04-24 08:32 | Urology Progress Note ---
Assessment and Plan - Time spent with patient Time spent with patient: Less than 30 minutes (1) Acute urinary retention Status: Acute Assessment and plan: Acute urinary retention, possibly chronic urinary retention by history. I agree with Steinberg drainage. Maintain Steinberg catheter until indicated medically. He may need intermittent catheterization. Steinberg catheter may be removed when medically indicated by his primary service. Then I would start post void catheterization to establish PVRs. Should be done at least every 6 hours. If his postvoid residuals are less than 250 mL, then I would quit performing intermittent catheterization. Current Visit: Yes (2) Acute renal failure Status: Acute Assessment and plan: Creatinine 2.00 when admitted, and has risen to 2.40 this morning. He is on IV fluids. His EF is 20%, and this is likely related with his medical condition. His catheter is draining well and renal ultrasound with no evidence of hydronephrosis. I do not feel this is a postobstructive problem. It has improved to 2.20 this morning Current Visit: Yes (3) Anemia Status: Acute Assessment and plan: Patient has a history of anemia, anticoagulation with Eliquis, and atrial fibrillation. This all would be indicators that we should not try any surgical intervention for his prostate. I have discussed with his daughter that he is not a great surgical candidate, and if remains urinary retention will likely need intermittent catheterization. Current Visit: Yes (4) BPH (benign prostatic hyperplasia) Status: Chronic Assessment and plan: Continue finasteride 5 mg daily. He should be discharged on this. I have discussed with Dr. Tovar that I would like to add Flomax 0.4 mg at bedtime if his blood pressure becomes more stable. Given his near syncope and hypotension, this is not a good option currently. Discussed with his daughter that his urinary retention may be due to BPH that is chronic. At this time will try conservative management. Thanks for the opportunity to participate in this patient's care. I will not see over the weekend, but please call call urology for any urgent concerns. Current Visit: Yes (5) Near syncope Status: Resolved Current Visit: Yes Urology - PN: Subj Interval history: Creatinine slightly improved. Liver enzymes improving. Patient is much more alert this morning. We were able to communicate somewhat via written communication. He is unable to hear almost anything that I say or even yell. I did speak with his daughter, and he has performed intermittent catheterization on himself in the past. He reports that he would be able to do this. Exam - Constitutional Vitals: Period Temp Pulse Resp BP Sys/Walker Pulse Ox Last 24 Hr 96.3 F-98 F 60-99 12-20 101-118/60-71 93-99 General appearance: no acute distress - Head Head exam: Present: normocephalic - Eye Eye exam: Present: periorbital swelling (Mom) - ENT ENT exam: Present: normal external ear exam, other (Extremely hard of hearing) - Neck Neck exam: Present: normal inspection - Respiratory Respiratory exam: Present: decreased breath sounds. Absent: stridor - Cardiovascular Cardiovascular exam: Present: irregular rhythm - GI/Abdominal GI/Abdominal exam: Present: soft, other. Absent: tenderness, rebound - Genitourinary Genitourinary: penis with no lesions or discharge, other (Steinberg catheter in place draining clear urine) - Extremities Exam Extremities exam: Absent: calf tenderness - Back Exam Back exam: Absent: CVA tenderness (L), CVA tenderness (R) - Neurological Exam Neurological exam: Present: alert, oriented X3 - Psychiatric Psychiatric exam: Present: normal affect, normal mood - Skin Skin exam: Present: warm, dry Results - Labs CBC & BMP: 04/24/17 07:36 04/24/17 03:59 Lab Results: I have reviewed the past 24 hour labs Specialty Discharge - Follow Up or Referrals Follow up with: Marty Gayle MD [Physician] - 2 Weeks (2 weeks after discharge home)
[2017-04-24] MEDS ORDERED: POTASSIUM CHLORIDE 20 MEQ TABLET PO ONE ×2 (09:10→12:00)
[2017-04-24] MEDS: hydrALAZINE 10 MG TABLET PO SCH ×3 (09:11→21:15)
[2017-04-24] MEDS: APIXABAN 2.5 MG TABLET PO SCH ×2 (09:33→21:14)
[2017-04-24] MEDS: FUROSEMIDE 20 MG/2 ML VIAL IV SCH ×2 (09:33→21:13)
[2017-04-24] MEDS: LACTULOSE 20 GM/30 ML UDCUP PO SCH ×3 (09:33→21:14)
[2017-04-24] MEDS: PANTOPRAZOLE 40 MG TABLET PO SCH ×2 (09:33→21:15)
[2017-04-24] MEDS: CARVEDILOL 3.125 MG TABLET PO SCH ×2 (09:33→21:14)
[2017-04-24] MEDS: ISOSORBIDE MONONITRATE 30 MG TABLET PO SCH (09:34)
--- NOTE | 2017-04-24 10:51 | Gastrointestinal Progress Note ---
<TraceRhina Lacey - Last Filed: 04/24/17 10:49> Assessment and Plan (1) Anemia Status: Acute Assessment and plan: 04/24-H&H holding at 05/06, no overt bleeding. H&H is down slightly from yesterday at . Denies any dysphagia. Eliquis remains on hold. Plan an addendum to follow Dr. Zavala peer 04/23-H&H stable at . No reports of bleeding. ST evaluation noted. Eliquis held on admission beginning on 04/21. No present plans to proceed with endoscopy unless dysphagia continues. Plan an addendum to follow by Dr. Zavala. 04/22-HH . No overt bleeding. LFTs elevated today with reported hypotensive episode. Plan and addendum to follow by Dr Zavala. 04/21-admitted with weakness and near syncope, with history of atrial fibrillation and Eliquis daily use. No known prior history of anemia in the past. Also notation of elevated LFTs with prior history of this as well. Stool for occult blood are pending at this time. Known on prior endoscopy in the past. Plan an addendum to followed by Dr. Zavala. Current Visit: Yes Gastroenterology - PN: Subj Interval history: CC: Anemia Patient is seen awake and alert sitting up in bed. He is very hard of hearing therefore difficult to communicate with at times. He does not indicate any abdominal pain. He is tolerating his diet well with good appetite. Patient denies any dysphagia with eating. Abdomen soft, nontender. H&H stable at 05/06 without overt bleeding. ROS: Denies shortness of breath or chest pain Exam (Progress Note) - Constitutional Vitals: Period Temp Pulse Resp BP Sys/Walker Pulse Ox Last 24 Hr 96.3 F-98 F 60-99 12-20 101-111/60-69 93-98 General appearance: normal weight, no acute distress - Head Head exam: Present: normal inspection, normocephalic - Eye Eye exam: Present: other. Absent: scleral icterus - ENT ENT exam: Present: normal exam (Lids and identified unremarkable), normal oropharynx - Neck Neck exam: Present: normal inspection - Respiratory Respiratory exam: Present: clear to auscultation bilaterally. Absent: rales, rhonchi, wheezes - Cardiovascular Cardiovascular exam: Present: regular rate and rhythm. Absent: diastolic murmur , JVD, systolic murmur - GI/Abdominal GI/Abdominal exam: Present: normal bowel sounds, soft. Absent: ascites, distended, mass, organomegaly, tenderness - Extremities Exam Extremities exam: Present: normal inspection, full ROM - Back Exam Back exam: Present: normal inspection - Neurological Exam Neurological exam: Present: alert, oriented X3 - Psychiatric Psychiatric exam: Present: normal affect, normal mood - Skin Skin exam: Present: normal color, warm, dry Results - Labs CBC & BMP: 04/24/17 07:36 04/24/17 03:59 Lab Results: I have reviewed the past 24 hour labs Specialty Discharge - Follow Up or Referrals Follow up with: Marty Gayle MD [Physician] - 2 Weeks (2 weeks after discharge home) <Timothy Zavala - Last Filed: 04/24/17 14:53> Exam (Progress Note) - Constitutional Vitals: Period Temp Pulse Resp BP Sys/Walker Pulse Ox Last 24 Hr 96.3 F-98 F 60-99 12-25 101-110/60-72 93-98 Results - Labs CBC & BMP: 04/24/17 07:36 04/24/17 03:59
--- NOTE | 2017-04-24 15:34 | Hospitalist Progress Note ---
Assessment and Plan (1) Hypoglycemia Status: Resolved Assessment and plan: Resolved. Liver function improving Current Visit: Yes (2) Hypothyroidism Status: Acute Assessment and plan: Continue p.o. Synthroid and wean off stress dose steroids Current Visit: Yes (3) Anemia Status: Acute Assessment and plan: Eliquis restarted no plans to intervene. Current Visit: Yes (4) Acute renal failure Status: Acute Assessment and plan: Chronic renal failure stage III Current Visit: Yes (5) Near syncope Status: Resolved Assessment and plan: Resolved Current Visit: Yes (6) CVA (cerebral vascular accident) Status: Acute Assessment and plan: Eliquis restarted Current Visit: Yes (7) Atrial fibrillation Status: Chronic Assessment and plan: Eliquis restarted, continue Coreg Current Visit: Yes Qualifiers: Atrial fibrillation type: paroxysmal Qualified Code(s): I48.0 - Paroxysmal atrial fibrillation (8) Abnormal liver enzymes Status: Acute Assessment and plan: improving, cont lactulose for elevated ammonia Current Visit: Yes (9) BPH (benign prostatic hyperplasia) Status: Chronic Assessment and plan: cont proscar DC Doty in and out cath if residuals greater than 250 continue in and out cath every 6 hours Current Visit: Yes (10) Systolic and diastolic CHF, acute Status: Acute Assessment and plan: ef of 20%, Dr. Le increased his Lasix to 20 mg IV twice daily Current Visit: Yes (11) Generalized weakness Status: Acute Assessment and plan: PT,, OT, possible need for rehab was get him out of bed and see how he does appear Current Visit: Yes Hospitalist: Subjective Interval history: Patient is extremely hard of hearing and is almost impossible to communicate with but patient chokes whenever he eats. Dr. Le is already started him back on blood thinners. I have spoken with Dr. Zavala and he he had watched him eat and did not see him choke so he said he did need to follow-up with him unless he had problems. Will remove doty Exam - Constitutional Vitals: Period Temp Pulse Resp BP Sys/Walker Pulse Ox Last 24 Hr 96.3 F-98 F 60-99 12-25 101-110/60-72 93-98 Exam: Heart Rate-[RRR] Lungs-[clear GI-[+bs soft, NT] Ext-[slight edema] Neuro [Motor 5/5], [alert and oriented times 3 psych [normal mood and affect General [no acute distress] Results - Labs CBC & BMP: 04/24/17 07:36 04/24/17 03:59 Lab Results: I have reviewed the past 24 hour labs Specialty Discharge - Follow Up or Referrals Follow up with: Marty Gayle MD [Physician] - 2 Weeks (2 weeks after discharge home)
[2017-04-24] MEDS: cefTRIAXone 1,000 MG in SODIUM CHLORIDE 0.9% 100 ML IV SCH (21:13)
[2017-04-24] MEDS: FINASTERIDE 5 MG TABLET PO SCH (21:14)
[2017-04-25] MEDS: LEVOTHYROXINE 125 MCG TABLET PO SCH (06:14)
[2017-04-25 07:06] LABS: Hematocrit 28.2 VOL% (42.0-52.0); Hemoglobin 9.7 GM/DL (14.0-18.0); Immature Granulocytes % 0.7 %; Immature Granulocytes Absolute 0.06 #; Lymphocytes # 0.8 10*3/uL (1.4-4.0); Lymphocytes % 9.6 % (21.2-54.2); Mean Corpuscular HGB Conc 34.4 GM/DL (32-36); Mean Corpuscular Hemoglobin 29 PG (27-34); Mean Corpuscular Volume 85.5 FL (87-102); Mean Platelet Volume 12.8 FL (9.6-12.0); Monocytes # 0.6 10*3/uL (0.11-0.8); Monocytes % 6.8 % (1.7-12.7); NRBC # 0.03 10*3/uL; Neutrophils % 82.9 % (38.7-73.9); Platelet Count 78 T/CUMM (130-400); Red Cell Distribution Width 15.3 % (9.3-17.3); White Blood Count 8.5 T/CUMM (4-12)
[2017-04-25 07:40] LABS: Albumin 3.5 G/DL (3.4-5.0); Bilirubin,Total 0.6 MG/DL (0.2-1.0); Calcium 8.3 MG/DL (8.5-10.1); Osmolality,Calculated 286.8 MOS/KG (273-304); Potassium 3.2 MMOL/L (3.5-5.1); Total Protein 6.3 G/DL (6.4-8.3)
[2017-04-25 08:01] LABS: Burr Cells 1+; Microcytosis 1+; Platelet Estimate Decreased
[2017-04-25] MEDS: hydrALAZINE 10 MG TABLET PO SCH (08:30)
[2017-04-25] MEDS: ATORVASTATIN 80 MG TABLET PO SCH (08:31)
[2017-04-25] MEDS: LACTULOSE 20 GM/30 ML UDCUP PO SCH (08:31)
[2017-04-25] MEDS: APIXABAN 2.5 MG TABLET PO SCH ×2 (08:31→20:33)
[2017-04-25] MEDS: CARVEDILOL 3.125 MG TABLET PO SCH ×2 (08:31→20:33)
[2017-04-25] MEDS: PANTOPRAZOLE 40 MG TABLET PO SCH ×2 (08:31→20:33)
[2017-04-25] MEDS: ISOSORBIDE MONONITRATE 30 MG TABLET PO SCH (08:31)
[2017-04-25] MEDS ORDERED: POTASSIUM CHLORIDE 20 MEQ TABLET PO ONE (08:42)
[2017-04-25] MEDS ORDERED: HYDROCORTISONE 100 MG VIAL IV SCH (09:00)
[2017-04-25] MEDS: FUROSEMIDE 20 MG/2 ML VIAL IV SCH (09:40)
--- NOTE | 2017-04-25 12:00 | Cardiology Progress Note ---
Assessment and Plan (1) Anemia Status: Acute Assessment and plan: 86-year-old male, followed by Dr. Parham. Nonischemic cardiomyopathy, dual- chamber pacemaker. Underlying rhythm A. fib. He was anticoagulated with low- dose Eliquis before. Severe hypothyroidism, mild edema. Ejection fraction declined, severe TR, pulmonary hypertension. -Switch Lasix to p.o. Volume overload improved. Some of it may have been related to severe hypothyroidism. Severe TR, pulmonary hypertension. -Cont Eliquis 2.5 mg bid. Hematocrit trended lower, stool negative for blood. So far, no major bleeding issues. -Added Imdur 15 mg daily, hydralazine 10 mg 3 times daily for nonischemic cardiomyopathy, severe CKD, I would hold off adding an yeyo -Markedly elevated LFTs. Hold statin. This may be rechecked and restarted as an outpatient. 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 Follow-up with Dr. Parham I will sign off, please call with further questions Current Visit: Yes (2) CVA (cerebral vascular accident) Status: Acute Current Visit: Yes (3) Atrial fibrillation Status: Chronic Current Visit: Yes Qualifiers: Atrial fibrillation type: paroxysmal Qualified Code(s): I48.0 - Paroxysmal atrial fibrillation Cardiology - PN: Subj Interval history: He is feeling better. Shortness of breath improved. Exam (Progress Note) - Constitutional Vitals: Period Temp Pulse Resp BP Sys/Walker Pulse Ox Last 24 Hr 96.4 F-97.6 F 55-91 13-25 98-114/56-72 95-98 General appearance: normal weight, no acute distress - Head Head exam: Present: normal inspection, normocephalic. Absent: contusion - Eye Eye exam: Absent: periorbital swelling, scleral icterus Pupils: Absent: dilated - ENT ENT exam: Present: normal external ear exam - Neck Neck exam: Present: normal inspection - Respiratory Respiratory exam: Present: decreased breath sounds, prolonged expiratory phase - Cardiovascular Cardiovascular exam: Present: regular rate and rhythm, systolic murmur. Absent : JVD - GI/Abdominal GI/Abdominal exam: Present: normal bowel sounds, distended. Absent: guarding - Extremities Exam Extremities exam: Present: normal inspection, normal capillary refill, edema (1+ ) - Neurological Exam Neurological exam: Present: alert, other (Very hard on hearing) - Psychiatric Psychiatric exam: Present: normal affect, normal mood - Skin Skin exam: Present: normal color, warm. Absent: cyanosis Result/EKG - Labs CBC & BMP: 04/25/17 06:41 04/25/17 06:41 Lab Results: I have reviewed the past 24 hour labs Labs: Laboratory Results - last 24 hr 04/24/17 04/24/17 04/24/17 11:44 16:14 20:15 WBC RBC Hgb Hct MCV MCH MCHC RDW Plt Count MPV Neut % (Auto) Lymph % (Auto) [place] % (Auto) Eos % (Auto) Baso % (Auto) Neut # (Auto) Lymph # (Auto) [place] # (Auto) Eos # (Auto) Baso # (Auto) Immature Gran % Nucleated RBC % Immature Gran # Nucleated RBCs # Platelet Estimate Immature Plt Fraction Microcytosis Willard Cells Sodium Potassium Chloride Carbon Dioxide Anion Gap BUN Creatinine GFR Calculation BUN/Creatinine Ratio Glucose POC Glucose 214 H 187 H 196 H Calculated Osmolality Calcium Total Bilirubin AST ALT Alkaline Phosphatase B-Natriuretic Peptide Total Protein Albumin Globulin Albumin/Globulin Ratio 04/25/17 04/25/17 04/25/17 06:26 06:41 06:41 WBC 8.5 D RBC 3.30 L Hgb 9.7 L Hct 28.2 L MCV 85.5 L MCH 29 MCHC 34.4 RDW 15.3 Plt Count 78 L MPV 12.8 H Neut % (Auto) 82.9 H Lymph % (Auto) 9.6 L [place] % (Auto) 6.8 Eos % (Auto) 0.0 Baso % (Auto) 0.0 Neut # (Auto) 7.0 Lymph # (Auto) 0.8 L [place] # (Auto) 0.6 Eos # (Auto) 0.0 Baso # (Auto) 0.0 Immature Gran % 0.7 Nucleated RBC % 0.4 Immature Gran # 0.06 Nucleated RBCs # 0.03 Platelet Estimate Decreased Immature Plt Fraction 7.3 H Microcytosis 1+ Willard Cells 1+ Sodium 137 Potassium 3.2 L Chloride 102 Carbon Dioxide 27 Anion Gap 11.2 BUN 50 H Creatinine 2.30 H GFR Calculation 27 BUN/Creatinine Ratio 21.00 H Glucose 115 H POC Glucose 120 H Calculated Osmolality 286.8 Calcium 8.3 L Total Bilirubin 0.60 AST 604 H ALT 516 H Alkaline Phosphatase 150 H B-Natriuretic Peptide Total Protein 6.3 L Albumin 3.5 Globulin 2.8 Albumin/Globulin Ratio 1.2 04/25/17 06:41 WBC RBC Hgb Hct MCV MCH MCHC RDW Plt Count MPV Neut % (Auto) Lymph % (Auto) [place] % (Auto) Eos % (Auto) Baso % (Auto) Neut # (Auto) Lymph # (Auto) [place] # (Auto) Eos # (Auto) Baso # (Auto) Immature Gran % Nucleated RBC % Immature Gran # Nucleated RBCs # Platelet Estimate Immature Plt Fraction Microcytosis Berna Cells Sodium Potassium Chloride Carbon Dioxide Anion Gap BUN Creatinine GFR Calculation BUN/Creatinine Ratio Glucose POC Glucose Calculated Osmolality Calcium Total Bilirubin AST ALT Alkaline Phosphatase B-Natriuretic Peptide 848 H Total Protein Albumin Globulin Albumin/Globulin Ratio - EKG EKG results: interpreted by me Specialty Discharge - Follow Up or Referrals Follow up with: Marty Gayle MD [Physician] - 2 Weeks (2 weeks after discharge home)
[2017-04-25] MEDS ORDERED: TUBERCULIN SKIN TEST 0.1 ML SYRINGE INTRADERM ONE (14:44)
--- NOTE | 2017-04-25 14:47 | Hospitalist Progress Note ---
Assessment and Plan (1) Hypoglycemia Status: Resolved Assessment and plan: Resolved. Liver function improving, stop all steroids Current Visit: Yes (2) Hypothyroidism Status: Acute Assessment and plan: Continue p.o. Synthroid stop all steroids Current Visit: Yes (3) Anemia Status: Acute Assessment and plan: cont Eliquis, stable hgb Current Visit: Yes (4) Acute renal failure Status: Acute Assessment and plan: Chronic renal failure stage III Current Visit: Yes (5) Near syncope Status: Resolved Assessment and plan: Resolved, very off balance when attempted to walk Current Visit: Yes (6) CVA (cerebral vascular accident) Status: Acute Assessment and plan: cont eliquis Current Visit: Yes (7) Atrial fibrillation Status: Chronic Assessment and plan: Continue Coreg and Eliquis Current Visit: Yes Qualifiers: Atrial fibrillation type: paroxysmal Qualified Code(s): I48.0 - Paroxysmal atrial fibrillation (8) Abnormal liver enzymes Status: Acute Assessment and plan: improving, will stop lactulose Current Visit: Yes (9) BPH (benign prostatic hyperplasia) Status: Chronic Assessment and plan: cont proscar Current Visit: Yes (10) Systolic and diastolic CHF, acute Status: Acute Assessment and plan: ef of 20%, coreg and lasix Current Visit: Yes (11) Generalized weakness Status: Acute Assessment and plan: PT,, OT,will need rehab Current Visit: Yes Hospitalist: Subjective Interval history: Spoke with daughter this morning give her an update on patient's condition. Told the patient today if he can get up and walk without assistance that he could go home today. Nursing got him up he was unsteady on his feet. Patient' s blood pressure tends to swing rather low. We are going to stop the stress dose steroids as his cortisol response is normal. Daughter had questions about which rehabs to go to and how she proceeds with that. I will have chloro from public health social worker discuss those options with her. Exam - Constitutional Vitals: Period Temp Pulse Resp BP Sys/Walker Pulse Ox Last 24 Hr 96.4 F-97.6 F 55-91 13-20 98-114/56-67 95-97 Exam: Heart Rate-[RRR] Lungs-[clear GI-[+bs soft, NT] Ext-[no edema] Neuro [Motor 5/5 but weak], [alert and oriented times 2 psych [normal mood and affect General [no acute distress] Results - Labs CBC & BMP: 04/25/17 06:41 04/25/17 06:41 Specialty Discharge - Follow Up or Referrals Follow up with: Marty Gayle MD [Physician] - 2 Weeks (2 weeks after discharge home)
[2017-04-25] MEDS: POTASSIUM CHLORIDE 20 MEQ TABLET PO SCH (15:14)
[2017-04-25] MEDS: FUROSEMIDE 20 MG TABLET PO SCH (16:23)
[2017-04-25] MEDS: FINASTERIDE 5 MG TABLET PO SCH (20:33)
[2017-04-26] MEDS: LEVOTHYROXINE 125 MCG TABLET PO SCH (06:03)
[2017-04-26 07:05] LABS: Eosinophils % 0.1 % (0.00-10.9); Hematocrit 28.3 VOL% (42.0-52.0); Immature Granulocytes % 0.9 %; Immature Granulocytes Absolute 0.07 #; Lymphocytes # 1.1 10*3/uL (1.4-4.0); Lymphocytes % 13.7 % (21.2-54.2); Mean Corpuscular HGB Conc 35.3 GM/DL (32-36); Mean Corpuscular Hemoglobin 30 PG (27-34); Mean Corpuscular Volume 83.7 FL (87-102); Mean Platelet Volume 12.7 FL (9.6-12.0); Monocytes # 0.6 10*3/uL (0.11-0.8); Monocytes % 7.5 % (1.7-12.7); NRBC # 0.05 10*3/uL; Neutrophils % 77.8 % (38.7-73.9); Platelet Count 72 T/CUMM (130-400); Red Blood Count 3.38 MC/CUMM (3.8-5.5); Red Cell Distribution Width 15.7 % (9.3-17.3); White Blood Count 7.7 T/CUMM (4-12)
[2017-04-26 07:36] LABS: Albumin 3.3 G/DL (3.4-5.0); Bilirubin,Total 0.8 MG/DL (0.2-1.0); Calcium 8.1 MG/DL (8.5-10.1); Osmolality,Calculated 281.2 MOS/KG (273-304); Potassium 3.5 MMOL/L (3.5-5.1)
[2017-04-26 07:47] LABS: Acanthocytes 2+; Burr Cells Slight; Pappenheimer Bodies Few; Polychromasia Slight
[2017-04-26 07:48] LABS: Hypochromasia 1+; Macrocytosis Slight; Microcytosis Slight; Platelet Estimate Decreased; Schistocytes Few
[2017-04-26] MEDS: FUROSEMIDE 20 MG TABLET PO SCH (08:42)
[2017-04-26] MEDS: POTASSIUM CHLORIDE 20 MEQ TABLET PO SCH (08:42)
[2017-04-26] MEDS: CARVEDILOL 3.125 MG TABLET PO SCH ×2 (08:42→20:41)
[2017-04-26] MEDS: PANTOPRAZOLE 40 MG TABLET PO SCH ×2 (08:42→20:41)
[2017-04-26] MEDS: APIXABAN 2.5 MG TABLET PO SCH ×2 (08:42→20:41)
[2017-04-26] MEDS: ATORVASTATIN 80 MG TABLET PO SCH (08:42)
[2017-04-26] MEDS ORDERED: predniSONE 20 MG TABLET PO SCH (09:00)
[2017-04-26] MEDS ORDERED: LACTULOSE 20 GM/30 ML UDCUP PO SCH (09:00)
[2017-04-26] MEDS ORDERED: BISACODYL 5 MG TABLET PO PRN (09:23)
[2017-04-26] MEDS: POLYETHYLENE GLYCOL POWDER 17 GM PACK PO SCH ×2 (10:15→20:41)
--- NOTE | 2017-04-26 11:24 | XRay Report ---
KUB. Indication: Abdomen pain. No prior studies. The heart is enlarged. No intra-abdominal organomegaly. Mild gaseous distention of small intestine, with gas and fecal material seen to the rectum, excluding obstruction. Degenerative changes of the spinal column and hips. Impression: Mild nonspecific gaseous distention of bowel. PROCEDURE INTERPRETED AT [facility] DEPARTMENT OF RADIOLOGY Final Report Signed by: Dr. Tanya Aponte
--- NOTE | 2017-04-26 14:41 | Hospitalist Progress Note ---
Assessment and Plan (1) Hypoglycemia Status: Resolved Assessment and plan: Resolved. Liver function improving, stopped all steroids Current Visit: Yes (2) Hypothyroidism Status: Acute Assessment and plan: Continue p.o. Synthroid stopped all steroids Current Visit: Yes (3) Anemia Status: Acute Assessment and plan: cont Eliquis, stable hgb Current Visit: Yes (4) Acute renal failure Status: Acute Assessment and plan: Chronic renal failure stage III Current Visit: Yes (5) Near syncope Status: Resolved Assessment and plan: Resolved, very off balance rehab in am Current Visit: Yes (6) CVA (cerebral vascular accident) Status: Acute Assessment and plan: cont eliquis Current Visit: Yes (7) Atrial fibrillation Status: Chronic Assessment and plan: Continue Coreg and Eliquis Current Visit: Yes Qualifiers: Atrial fibrillation type: paroxysmal Qualified Code(s): I48.0 - Paroxysmal atrial fibrillation (8) Abnormal liver enzymes Status: Acute Assessment and plan: improving Current Visit: Yes (9) BPH (benign prostatic hyperplasia) Status: Chronic Assessment and plan: cont proscar Current Visit: Yes (10) Systolic and diastolic CHF, acute Status: Acute Assessment and plan: ef of 20%, coreg and increase lasix to 40 mg IV daily Current Visit: Yes (11) Generalized weakness Status: Acute Assessment and plan: PT,, OT,will need rehab Current Visit: Yes Hospitalist: Subjective Interval history: Patient has not had a bowel movement in several days and in his abdomen is getting quite tight. He still very off balance when he tries to get up to go to the chair and requires quite a bit of assistance. After speaking with his daughter yesterday we have decided that he would need to go to rehab. She was interested in a rehab in [facility]. Exam - Constitutional Vitals: Period Temp Pulse Resp BP Sys/Walker Pulse Ox Last 24 Hr 96.7 F-97.4 F 60-63 16-20 90-109/56-78 94-100 Exam: Heart Rate-[RRR] Lungs-[few crackles GI-[+bs firm] Ext-[no edema] Neuro [Motor 5/5 but weak], [alert and oriented times 3 psych [normal mood and affect General [no acute distress] Results - Labs CBC & BMP: 04/26/17 06:08 09/17/17 06:08 Lab Results: I have reviewed the past 24 hour labs Specialty Discharge - Follow Up or Referrals Follow up with: Marty Gayle MD [Physician] - 2 Weeks (2 weeks after discharge home)
[2017-04-26] MEDS: FUROSEMIDE 40 MG/4 ML VIAL IV SCH (16:47)
[2017-04-26] MEDS: FINASTERIDE 5 MG TABLET PO SCH (20:41)
[2017-04-27] MEDS: LEVOTHYROXINE 125 MCG TABLET PO SCH (06:12)
--- NOTE | 2017-04-27 07:28 | Urology Progress Note ---
Assessment and Plan (1) Acute urinary retention Status: Acute Assessment and plan: Steinberg is out, and he is voiding spontaneously. I have instructed the nurses to start post void bladder scan to establish PVRs. Should be done at least every 6 hours for 24 hours. If his bladder scan is over 200 mL, I have instructed her to in and out catheterize him. If his postvoid residuals are less than 250 mL, then I would quit performing intermittent catheterization. Current Visit: Yes (2) Acute renal failure Status: Acute Assessment and plan: Creatinine 2.00 where it appears to have stabilized. Current Visit: Yes (3) Anemia Status: Acute Assessment and plan: Patient has a history of anemia, anticoagulation with Eliquis, and atrial fibrillation. This all would be indicators that we should not try any surgical intervention for his prostate. If he has recurrent urinary retention will likely need intermittent catheterization. Current Visit: Yes (4) BPH (benign prostatic hyperplasia) Status: Chronic Assessment and plan: Continue finasteride 5 mg daily. He should be discharged on this. II would like to add Flomax 0.4 mg at bedtime if his blood pressure becomes more stable. Given his near syncope and hypotension, this is not a good option currently. Thanks for the opportunity to participate in this patient's care. I will plan to see him in follow-up after discharge, but please call call urology for any urgent concerns. Current Visit: Yes (5) Near syncope Status: Resolved Current Visit: Yes Urology - PN: Subj Interval history: Steinberg removed over the weekend. He was able to void spontaneously, and a post void catheterization was 125 cc. He reportedly voided 200 cc. He reports that he is not voiding this morning. The nurses state he has avoided several times spontaneously. He has a urinal at the bedside with approximately 200 cc of clear, janneth urine. He is being referred for rehabilitation. He is still dizzy, and cannot tolerate alpha blockers. Exam - Constitutional Vitals: Period Temp Pulse Resp BP Sys/Walker Pulse Ox Last 24 Hr 96.7 F-98.7 F 59-69 18-20 95-103/56-65 94-100 General appearance: no acute distress - Head Head exam: Present: normocephalic, atraumatic - ENT ENT exam: Present: normal external ear exam, other (Extremely hard of hearing) - Neck Neck exam: Present: normal inspection - Respiratory Respiratory exam: Present: decreased breath sounds. Absent: stridor, wheezes - Cardiovascular Cardiovascular exam: Present: other (Warm, well-perfused). Absent: JVD - GI/Abdominal GI/Abdominal exam: Present: soft. Absent: tenderness, rebound - Genitourinary Genitourinary: penis with no lesions or discharge, other (Nonpalpable bladder) - Extremities Exam Extremities exam: Present: normal capillary refill - Back Exam Back exam: Absent: CVA tenderness (L), CVA tenderness (R) - Neurological Exam Neurological exam: Present: alert, oriented X3 - Psychiatric Psychiatric exam: Present: normal affect, normal mood - Skin Skin exam: Present: warm, dry Results - Labs CBC & BMP: 04/26/17 06:08 04/26/17 06:08 Lab Results: I have reviewed the past 24 hour labs Specialty Discharge - Follow Up or Referrals Follow up with: Marty Gayle MD [Physician] - 2 Weeks (2 weeks after discharge home)
[2017-04-27 07:46] LABS: Albumin 3.3 G/DL (3.4-5.0); Bilirubin,Total 0.9 MG/DL (0.2-1.0); Calcium 8.3 MG/DL (8.5-10.1); Osmolality,Calculated 278.4 MOS/KG (273-304); Potassium 4.1 MMOL/L (3.5-5.1); Total Protein 6.1 G/DL (6.4-8.3)
[2017-04-27] MEDS: CARVEDILOL 3.125 MG TABLET PO SCH ×2 (09:29→21:31)
[2017-04-27] MEDS: APIXABAN 2.5 MG TABLET PO SCH ×2 (09:29→21:31)
[2017-04-27] MEDS: POTASSIUM CHLORIDE 20 MEQ TABLET PO SCH (09:29)
[2017-04-27] MEDS: ATORVASTATIN 80 MG TABLET PO SCH (09:29)
[2017-04-27] MEDS: PANTOPRAZOLE 40 MG TABLET PO SCH ×2 (09:29→21:30)
[2017-04-27] MEDS: POLYETHYLENE GLYCOL POWDER 17 GM PACK PO SCH ×2 (09:30→21:31)
[2017-04-27] MEDS: FUROSEMIDE 40 MG/4 ML VIAL IV SCH (09:34)
--- NOTE | 2017-04-27 15:36 | Hospitalist Progress Note ---
Assessment and Plan (1) Physical debility Status: Acute Assessment and plan: Plan we put in a rehab unit in [facility]. At this point waiting for an answer from insurance company on the rehab unit. Physical therapy continues he Current Visit: Yes (2) CVA (cerebral vascular accident) Status: Acute Assessment and plan: Ferritin residual at this point. Patient is also legally blind. Current Visit: Yes (3) BPH (benign prostatic hyperplasia) Status: Chronic Current Visit: Yes (4) Systolic and diastolic CHF, acute Status: Acute Assessment and plan: Cyst EF of 20% of this point. Correlate and Lasix are on board. Current Visit: Yes Hospitalist: Subjective Interval history: Patient has been seen interviewed and examined. Interview is difficult because he is very hard of hearing. Also has some visual problems. Admitted to the hospital with a new onset weakness found to have cerebrovascular accident. Have significant deconditioning. At this point the plan is to put him in a rehab and they are waiting for an answer from both insurance and the rehab place. The peripheral is placed he wants to go to in [facility]; no acute clinical complaints at this time Exam - Constitutional Vitals: Period Temp Pulse Resp BP Sys/Walker Pulse Ox Last 24 Hr 96.7 F-98.7 F 59-69 18-20 96-113/61-73 94-100 General appearance: normal weight, no acute distress - Head Head exam: Present: normocephalic, atraumatic - Eye Eye exam: Present: other (Patient is legally blind) - ENT ENT exam: Present: normal oropharynx - Neck Neck exam: Present: normal inspection - Respiratory Respiratory exam: Present: clear to auscultation bilaterally - Cardiovascular Cardiovascular exam: Present: regular rate and rhythm - GI/Abdominal GI/Abdominal exam: Present: normal bowel sounds, soft - Extremities Exam Extremities exam: Present: other (Generalized weakness motor function seems to be symmetric however. Did not walk him so I do not know about his gait) - Neurological Exam Neurological exam: Present: alert, oriented X3, other (Very hard of hearing patient is blind) - Psychiatric Psychiatric exam: Present: normal affect, normal mood, other (Very hard of hearing) - Skin Skin exam: Present: normal color, warm, dry Results - Labs CBC & BMP: 04/26/17 06:08 04/27/17 06:16 Lab Results: I have reviewed the past 24 hour labs (Noted stable anemia and a creatinine of 2) Specialty Discharge - Follow Up or Referrals Follow up with: Marty Gayle MD [Physician] - 2 Weeks (2 weeks after discharge home)
[2017-04-27] MEDS: FINASTERIDE 5 MG TABLET PO SCH (21:30)
[2017-04-28] MEDS: LEVOTHYROXINE 125 MCG TABLET PO SCH (06:44)
--- NOTE | 2017-04-28 07:08 | Urology Progress Note ---
Assessment and Plan (1) Acute urinary retention Status: Acute Assessment and plan: Steinberg is out, and he is voiding spontaneously. Post void bladder scans and intermittent catheterization revealed he is emptying well. They may stop the bladder scans and allow him to continue voiding. Current Visit: Yes (2) Acute renal failure Status: Acute Assessment and plan: Creatinine 2.00 where it appears to have stabilized. Likely his baseline. Current Visit: Yes (3) Anemia Status: Acute Assessment and plan: Patient has a history of anemia, anticoagulation with Eliquis, and atrial fibrillation. This all would be indicators that we should not try any surgical intervention for his prostate. If he has recurrent urinary retention will likely need intermittent catheterization. Current Visit: Yes (4) BPH (benign prostatic hyperplasia) Status: Chronic Assessment and plan: Continue finasteride 5 mg daily. He should be discharged on this. I would like to add Flomax 0.4 mg at bedtime if his blood pressure becomes more stable. Given his near syncope and hypotension, this is not a good option currently. Thanks for the opportunity to participate in this patient's care. I will plan to see him in follow-up after discharge, but please call call urology for any urgent concerns. I will sign off in the hospital. Current Visit: Yes (5) Near syncope Status: Resolved Current Visit: Yes Urology - PN: Subj Interval history: Voiding spontaneously. The nurses report bladder scans all less than 200 mL. His in and out cath post void was 125 mL. He denies any complaints with voiding. No hematuria. He is still receiving therapy, and planning for rehab. Exam - Constitutional Vitals: Period Temp Pulse Resp BP Sys/Walker Pulse Ox Last 24 Hr 97 F-98.3 F 59-68 18-20 98-113/61-73 94-99 General appearance: no acute distress - Head Head exam: Present: normocephalic, atraumatic - Eye Eye exam: Absent: scleral icterus - ENT ENT exam: Present: normal oropharynx, other (Extremely hard of hearing) - Respiratory Respiratory exam: Absent: accessory muscle use, stridor, wheezes - Cardiovascular Cardiovascular exam: Present: irregular rhythm. Absent: JVD - GI/Abdominal GI/Abdominal exam: Present: soft, other (Nonpalpable bladder). Absent: tenderness, rebound - Genitourinary Genitourinary: scrotum without lesions, cysts, edema or rash, penis with no lesions or discharge - Extremities Exam Extremities exam: Present: normal capillary refill - Back Exam Back exam: Absent: CVA tenderness (L), CVA tenderness (R) - Neurological Exam Neurological exam: Present: alert, oriented X3 - Psychiatric Psychiatric exam: Present: normal affect, normal mood - Skin Skin exam: Present: warm, dry Results - Labs CBC & BMP: 04/26/17 06:08 04/27/17 06:16 Lab Results: I have reviewed the past 24 hour labs Specialty Discharge - Follow Up or Referrals Follow up with: Marty Gayle MD [Physician] - 2 Weeks (2 weeks after discharge home)
--- NOTE | 2017-04-28 08:59 | Hospitalist Progress Note ---
Assessment and Plan (1) CVA (cerebral vascular accident) Status: Acute Assessment and plan: Patient has a previous history of cerebrovascular accidents. Current Visit: Yes (2) BPH (benign prostatic hyperplasia) Status: Chronic Assessment and plan: He experienced acute urinary retention was probably secondary to benign prostatic hypertrophy. He appears stable at the present time. Current Visit: Yes Qualifiers: Lower urinary tract symptom presence: symptoms present (3) Systolic and diastolic CHF, acute Status: Acute Assessment and plan: He appears stable at the present time with no evidence of acute congestive heart failure. He is being treated with furosemide. He is being followed by cardiology. Current Visit: Yes (4) Nonischemic cardiomyopathy Status: Acute Assessment and plan: He has nonischemic cardiomyopathy with LVEF of 20%. Current Visit: Yes (5) Acute on chronic renal failure Status: Acute Assessment and plan: BUN and creatinine yesterday were 50 and 2.0. This very probably represents his baseline and is compatible with stage III chronic kidney disease. Current Visit: Yes Qualifiers: Acute renal failure type: unspecified Chronic kidney disease stage: stage 3 (moderate) Qualified Code(s): N17.9 - Acute kidney failure, unspecified; N18.3 - Chronic kidney disease, stage 3 (moderate) Hospitalist: Subjective Interval history: Mr. Casillas spent an uneventful night. He has no new complaints today. He is comfortable and awaiting placement at a rehabilitation facility in [facility]. Exam - Constitutional Vitals: Period Temp Pulse Resp BP Sys/Walker Pulse Ox Last 24 Hr 96.7 F-98.3 F 59-68 18-20 98-113/61-73 94-99 General appearance: no acute distress - Head Head exam: Present: normal inspection - Neck Neck exam: Present: normal inspection - Respiratory Respiratory exam: Present: clear to auscultation bilaterally - Cardiovascular Cardiovascular exam: Present: regular rate and rhythm - GI/Abdominal GI/Abdominal exam: Present: normal bowel sounds, soft, other (Nontender with no palpable masses or hepatosplenomegaly.) - Extremities Exam Extremities exam: Present: normal inspection - Neurological Exam Neurological exam: Present: alert - Skin Skin exam: Present: normal color, warm, intact Results - Labs CBC & BMP: 04/26/17 06:08 04/27/17 06:16 Specialty Discharge - Follow Up or Referrals Follow up with: Marty Gayle MD [Physician] - 2 Weeks (2 weeks after discharge home)
[2017-04-28] MEDS: ATORVASTATIN 80 MG TABLET PO SCH (09:36)
[2017-04-28] MEDS: FUROSEMIDE 40 MG/4 ML VIAL IV SCH (09:36)
[2017-04-28] MEDS: PANTOPRAZOLE 40 MG TABLET PO SCH ×2 (09:36→21:29)
[2017-04-28] MEDS: CARVEDILOL 3.125 MG TABLET PO SCH ×2 (09:36→21:29)
[2017-04-28] MEDS: APIXABAN 2.5 MG TABLET PO SCH ×2 (09:36→21:29)
[2017-04-28] MEDS: POLYETHYLENE GLYCOL POWDER 17 GM PACK PO SCH ×2 (09:37→21:28)
[2017-04-28] MEDS: POTASSIUM CHLORIDE 20 MEQ TABLET PO SCH (09:38)
[2017-04-28] MEDS: FINASTERIDE 5 MG TABLET PO SCH (21:28)
[2017-04-29] MEDS: LEVOTHYROXINE 125 MCG TABLET PO SCH (06:45)
[2017-04-29] MEDS: POTASSIUM CHLORIDE 20 MEQ TABLET PO SCH (09:49)
[2017-04-29] MEDS: PANTOPRAZOLE 40 MG TABLET PO SCH (09:49)
[2017-04-29] MEDS: APIXABAN 2.5 MG TABLET PO SCH (09:49)
[2017-04-29] MEDS: ATORVASTATIN 80 MG TABLET PO SCH (09:49)
[2017-04-29] MEDS: CARVEDILOL 3.125 MG TABLET PO SCH (09:49)
[2017-04-29] MEDS: POLYETHYLENE GLYCOL POWDER 17 GM PACK PO SCH (09:50)
[2017-04-29] MEDS: FUROSEMIDE 40 MG/4 ML VIAL IV SCH (09:50)
--- NOTE | 2017-04-29 09:58 | Discharge Summary ---
Hospital Course - Hospital Course Hospital Course: Mr. Casillas is a 86 year old male Pt is a 86 y/o male who presents to the ED for further evaluation of weakness with an onset of yesterday. Pt has a PMHx of HTN, NM, and Pacemaker. Pt states that since yesterday has been having to hold on to something while walking because he has trouble "getting around". He states that he is getting weaker and cannot walk. Almost passed out in the bathroom trying to give us a urine specimen. Patient is extremely hard of hearing and daughter answered questions for me. Patient had a Steinberg placed and they got back 800 mL's of urine. UA has been sent but the findings are pending. I put him on Rocephin prophylactically. Patient looks extremely pale to me and is on Eliquis. Patient is also on Lasix and spironolactone contributing to his dehydration. Patient was admitted to the hospital with acute on chronic renal failure, acute on chronic systolic and diastolic congestive heart failure, acute urinary retention secondary to benign prostatic hypertrophy, severe anemia, and generalized weakness. He was seen in consultation by Dr. Timothy Zavala of gastroenterology and Dr. Marty Gayle of urology. He was maintained in the hospital with a Steinberg catheter. Steinberg catheter was subsequently removed and the patient was able to successfully void.On admission to the hospital, laboratory testing demonstrated the following: BUN 40, creatinine 2.0, hematocrit 33.1, hemoglobin 11.4, and glucose 66. At the time of discharge his BUN and creatinine were 50 and 2.0, felt not to be significantly changed from admission. At the time of discharge he was comfortable and stable. Diagnosis - Discharge Diagnosis (1) CVA (cerebral vascular accident) Status: Chronic (2) BPH (benign prostatic hyperplasia) Status: Chronic (3) Systolic and diastolic CHF, acute Status: Acute (4) Nonischemic cardiomyopathy Status: Chronic (5) Acute on chronic renal failure Status: Acute (6) Anemia Status: Chronic (7) Generalized weakness Status: Chronic Specialty Discharge - Follow Up or Referrals Follow up with: Marty Gayle MD [Physician] - 2 Weeks (2 weeks after discharge home) Discharge Plan - Discharge Data Disposition: Swing Bed, Hos Based, [facility] Condition at Discharge: Stable Discharge Diet: advance to your usual diet Activity: resume usual activities as tolerated - Discharge Medications New Finasteride [Proscar] 5 mg PO DAILY #90 tablet Apixaban [Eliquis] 2.5 mg PO BID tablet Carvedilol [Coreg] 3.125 mg PO BID #60 tablet Finasteride [Proscar] 5 mg PO BEDTIME #30 tablet Potassium Chloride Cap/Tab [K Dur] 40 meq PO DAILY #30 tablet Levothyroxine Tab [Synthroid Tab] 125 mcg PO DAILY@0700 #30 tablet Continue Spironolactone 12.5 mg PO MOWEFR Apixaban [Eliquis] 2.5 mg PO BID Magnesium Chloride [Slow Mag] 64 mg PO BID Potassium Chloride 10 meq PO DAILY Metoprolol Succinate Xl [Toprol Xl] 25 mg PO BID Atorvastatin Calcium 80 mg PO DAILY Furosemide 40 mg PO DAILY - Follow Up or Referral Follow Up: Marty Gayle MD [Physician] - 2 Weeks (2 weeks after discharge home) - Forms/Instructions Exam - Constitutional Vitals: Period Temp Pulse Resp BP Sys/Walker Pulse Ox Last 24 Hr 96.3 F-98.0 F 59-64 18-20 105-112/61-72 98-100 Discharge Results Procedures and tests throughout hospitalization: Pending Orders 04/22/17 23:10 Occult Blood, Stool Stat Labs on day of discharge: Labs from last 24 hours 04/29/17 04/28/17 04/28/17 07:42 20:43 16:06 POC Glucose 97 113 H 117 H 04/28/17 12:12 POC Glucose 171 H DS: Provider Date of admission: 04/20/17 19:04 Primary care physician: . No PCP Attending physician on admission: Óscar Joseph MD Consults: 04/20/17 20:31 Consult to Physician [CONS] Routine Comment: anemia, on eliquis Consulting Provider: Timothy Zavala Person Notified: Jenn Date Notified: 04/21/17 Time Notified: 10:45 04/21/17 09:34 Consult to Occupational Therapy [CONS] Routine Reason for Occupational Therapy: Weakness Consult to Physical Therapy [CONS] Routine Reason for Physical Therapy: Evaluate and Treat 04/21/17 10:45 Consult to Physician [CONS] Routine Comment: urinary retention Consulting Provider: Marty Gayle Consult to Specialist Group: Urology Person Notified: Marlys Date Notified: 04/22/17 Time Notified: 08:51 04/24/17 15:42 Consult to Case Mgmt/Social Srvs [CONS] Routine Reason for Case Mgmt/Social Srvs: Rehab 04/25/17 14:42 Consult to Case Mgmt/Social Srvs [CONS] Routine Reason for Case Mgmt/Social Srvs: Rehab Consult Comment: daughter in room has question I cannot answer Discharging clinician: Sulaiman Dsouza
[2017-04-29 12:01] VITALS: BP 107/68
== END 2017-04-29 13:10 | disposition swing bed (61) | DRG 312 ==
LOC: N.ED 13:50 → SUATTDRO 19:04 → N.EDINP 19:04 → N.TELEN 20:00 → N.CC 04-21 14:48 → N.5E 04-25 01:31
PROVIDERS: ADMIT Internal Medicine

== ENCOUNTER 2017-10-23 14:55 | Inpatient (IN) ==
[2017-10-23] MEDS ORDERED: ONDANSETRON 4 MG/2 ML VIAL IV STA (15:55)
[2017-10-23] MEDS ORDERED: SODIUM CHLORIDE 0.9% 1,000 ML IV STA (15:55)
[2017-10-23 16:01] LABS: Basophils % 0.6 % (0.0-0.8); Eosinophils # 0.2 10*3/uL (0.0-0.87); Eosinophils % 2.8 % (0.00-10.9); Hematocrit 35.4 VOL% (42.0-52.0); Immature Granulocytes % 0.2 %; Immature Granulocytes Absolute 0.01 #; Lymphocytes # 1.9 10*3/uL (1.4-4.0); Lymphocytes % 35.6 % (21.2-54.2); Mean Corpuscular HGB Conc 33.9 GM/DL (32-36); Mean Corpuscular Hemoglobin 28 PG (27-34); Mean Corpuscular Volume 83.7 FL (87-102); Mean Platelet Volume 10.1 FL (9.6-12.0); Monocytes # 0.5 10*3/uL (0.11-0.8); Monocytes % 8.4 % (1.7-12.7); Neutrophils # 2.8 10*3/uL (1.4-7.4); Neutrophils % 52.4 % (38.7-73.9); Platelet Count 129 T/CUMM (130-400); Red Blood Count 4.23 MC/CUMM (3.8-5.5); Red Cell Distribution Width 14.5 % (9.3-17.3); White Blood Count 5.3 T/CUMM (4-12)
[2017-10-23] MEDS ORDERED: ONDANSETRON 4 MG/2 ML VIAL ONE (16:02)
[2017-10-23 16:06] LABS: INR 1.2; PT Patient Result 12.5 SECS
[2017-10-23 16:21] LABS: Alanine Aminotransferase 20 U/L (16-61); Alkaline Phosphatase 85 U/L (45-117); Aspartate Amino Transferase 44 U/L (0-37); Blood Urea Nitrogen 32 MG/DL (7-18); Calcium 9.3 MG/DL (8.5-10.1); Glucose 152 MG/DL (74-106); Osmolality,Calculated 271.7 MOS/KG (273-304); Sodium 131 MMOL/L (136-145); Total Protein 7.4 G/DL (6.4-8.3)
[2017-10-23 16:23] LABS: Potassium 2.1 MMOL/L (3.5-5.1)
[2017-10-23] MEDS ORDERED: POTASSIUM CHLORIDE 20 MEQ TABLET PO STA (16:29)
[2017-10-23] MEDS ORDERED: POTASSIUM CHLORIDE 20 MEQ TABLET PO ONE (16:39)
[2017-10-23] MEDS ORDERED: ONDANSETRON 4 MG/2 ML VIAL IV PRN (17:48)
[2017-10-23] MEDS ORDERED: ACETAMINOPHEN 325 MG TABLET PO PRN (17:48)
[2017-10-23] MEDS ORDERED: POTASSIUM CHLORIDE RIDER 20 MEQ in PREMIX 1 EACH IV PRN (17:55)
[2017-10-23] MEDS: SODIUM CHLORIDE 0.9% 1,000 ML IV SCH (18:25)
[2017-10-23] MEDS: POTASSIUM CHLORIDE RIDER 10 MEQ in PREMIX 1 EACH IV PRN ×4 (19:09→23:52)
[2017-10-23 19:27] LABS: Apearance,Urine CLEAR (Clear); Bilirubin,Urine Negative (Negative); Blood, Urine Small mg/dL (Negative); Glucose,Urine (UA) 50 mg/dL (Negative); Ketones,Urine Negative (Negative); Nitrite,Urine Negative (Negative); Protein,Urine 100 MG/DL; RBC,Urine 1 /HPF (0-4); Urine Color Yellow (Yellow); Urine Specific Gravity 1.008 (1.001-1.035); Urine Urobilinogen < 2.0 EU/DL (0.2-1.0); WBC,Urine 1 /HPF (0-6)
[2017-10-23] MEDS: ROSUVASTATIN 20 MG TABLET PO SCH (20:32)
[2017-10-23] MEDS ORDERED: APIXABAN 2.5 MG TABLET PO SCH (21:00)
[2017-10-24 04:04] LABS: Basophils % 0.8 % (0.0-0.8); Eosinophils # 0.1 10*3/uL (0.0-0.87); Eosinophils % 3.4 % (0.00-10.9); Hemoglobin 10.2 GM/DL (14.0-18.0); Immature Granulocytes % 0.3 %; Immature Granulocytes Absolute 0.01 #; Lymphocytes # 1.6 10*3/uL (1.4-4.0); Mean Corpuscular Hemoglobin 28 PG (27-34); Mean Corpuscular Volume 83.3 FL (87-102); Mean Platelet Volume 11.2 FL (9.6-12.0); Monocytes # 0.4 10*3/uL (0.11-0.8); Monocytes % 9.7 % (1.7-12.7); Neutrophils # 1.7 10*3/uL (1.4-7.4); Neutrophils % 43.8 % (38.7-73.9); Platelet Count 109 T/CUMM (130-400); Red Cell Distribution Width 14.2 % (9.3-17.3); White Blood Count 3.8 T/CUMM (4-12)
[2017-10-24] MEDS: POTASSIUM CHLORIDE RIDER 10 MEQ in PREMIX 1 EACH IV PRN ×3 (04:34→16:31)
[2017-10-24 04:35] LABS: Albumin 3.4 G/DL (3.4-5.0); Calcium 8.5 MG/DL (8.5-10.1); Osmolality,Calculated 270.2 MOS/KG (273-304); Potassium 3.1 MMOL/L (3.5-5.1); Total Protein 6.2 G/DL (6.4-8.3)
[2017-10-24] MEDS ORDERED: MORPHINE 2 MG/1 ML SYRINGE IV ONE (06:30)
[2017-10-24] MEDS: FUROSEMIDE 80 MG TABLET PO SCH (09:27)
[2017-10-24] MEDS: SODIUM CHLORIDE 0.9% 1,000 ML IV SCH (13:34)
[2017-10-24] MEDS: DEXT 5% NACL 0.9% KCL 20 MEQ 20 MEQ/1,000 ML BAG IV SCH (13:35)
[2017-10-24] MEDS: ROSUVASTATIN 20 MG TABLET PO SCH (21:07)
[2017-10-25] MEDS: DEXT 5% NACL 0.9% KCL 20 MEQ 20 MEQ/1,000 ML BAG IV SCH ×2 (02:55→16:42)
[2017-10-25] MEDS: FUROSEMIDE 80 MG TABLET PO SCH (08:39)
[2017-10-25] MEDS: POTASSIUM CHLORIDE RIDER 10 MEQ in PREMIX 1 EACH IV PRN (15:21)
[2017-10-25] MEDS ORDERED: POTASSIUM BICARB EFFERVESCENT 25 MEQ TABLET PO ONE (15:27)
[2017-10-25] MEDS: POTASSIUM CHLORIDE 20 MEQ/15 ML UDCUP PER TUBE PRN ×4 (16:42→23:08)
[2017-10-25] MEDS: ROSUVASTATIN 20 MG TABLET PO SCH (20:33)
[2017-10-26] MEDS: DEXT 5% NACL 0.9% KCL 20 MEQ 20 MEQ/1,000 ML BAG IV SCH (05:38)
[2017-10-26 05:51] LABS: Basophils % 0.4 % (0.0-0.8); Eosinophils # 0.2 10*3/uL (0.0-0.87); Eosinophils % 4.5 % (0.00-10.9); Hematocrit 33.3 VOL% (42.0-52.0); Hemoglobin 11.4 GM/DL (14.0-18.0); Lymphocytes # 1.7 10*3/uL (1.4-4.0); Lymphocytes % 37.3 % (21.2-54.2); Mean Corpuscular HGB Conc 34.2 GM/DL (32-36); Mean Corpuscular Hemoglobin 29 PG (27-34); Mean Corpuscular Volume 84.7 FL (87-102); Mean Platelet Volume 10.7 FL (9.6-12.0); Monocytes # 0.4 10*3/uL (0.11-0.8); Neutrophils # 2.2 10*3/uL (1.4-7.4); Neutrophils % 49.8 % (38.7-73.9); Platelet Count 110 T/CUMM (130-400); Red Blood Count 3.93 MC/CUMM (3.8-5.5); Red Cell Distribution Width 14.8 % (9.3-17.3); White Blood Count 4.5 T/CUMM (4-12)
[2017-10-26 06:21] LABS: Calcium 8.4 MG/DL (8.5-10.1); Osmolality,Calculated 274.8 MOS/KG (273-304); Potassium 4.5 MMOL/L (3.5-5.1)
[2017-10-26] MEDS: ROSUVASTATIN 20 MG TABLET PO SCH (21:28)
[2017-10-27] MEDS: DEXT 5% NACL 0.9% KCL 20 MEQ 20 MEQ/1,000 ML BAG IV SCH ×2 (03:39→21:42)
[2017-10-27 06:32] LABS: Basophils % 0.4 % (0.0-0.8); Eosinophils # 0.3 10*3/uL (0.0-0.87); Eosinophils % 5.6 % (0.00-10.9); Hematocrit 31.4 VOL% (42.0-52.0); Hemoglobin 10.9 GM/DL (14.0-18.0); Immature Granulocytes % 0.2 %; Immature Granulocytes Absolute 0.01 #; Lymphocytes # 1.9 10*3/uL (1.4-4.0); Lymphocytes % 37.9 % (21.2-54.2); Mean Corpuscular HGB Conc 34.7 GM/DL (32-36); Mean Corpuscular Hemoglobin 29 PG (27-34); Mean Platelet Volume 10.4 FL (9.6-12.0); Monocytes # 0.4 10*3/uL (0.11-0.8); Monocytes % 7.8 % (1.7-12.7); Neutrophils # 2.4 10*3/uL (1.4-7.4); Neutrophils % 48.1 % (38.7-73.9); Platelet Count 105 T/CUMM (130-400); Red Blood Count 3.74 MC/CUMM (3.8-5.5); Red Cell Distribution Width 14.7 % (9.3-17.3)
[2017-10-27 06:58] LABS: Calcium 8.7 MG/DL (8.5-10.1); Osmolality,Calculated 275.1 MOS/KG (273-304)
[2017-10-27] MEDS ORDERED: ePHEDrine 50 MG/ML AMP ONE (13:27)
[2017-10-27] MEDS: ROSUVASTATIN 20 MG TABLET PO SCH (21:43)
[2017-10-28 05:58] LABS: Basophils % 0.6 % (0.0-0.8); Eosinophils # 0.2 10*3/uL (0.0-0.87); Eosinophils % 3.9 % (0.00-10.9); Hematocrit 33.9 VOL% (42.0-52.0); Hemoglobin 11.3 GM/DL (14.0-18.0); Immature Granulocytes % 0.6 %; Immature Granulocytes Absolute 0.03 #; Lymphocytes # 1.8 10*3/uL (1.4-4.0); Lymphocytes % 38.2 % (21.2-54.2); Mean Corpuscular HGB Conc 33.3 GM/DL (32-36); Mean Corpuscular Hemoglobin 28 PG (27-34); Mean Platelet Volume 10.6 FL (9.6-12.0); Monocytes # 0.3 10*3/uL (0.11-0.8); Monocytes % 7.1 % (1.7-12.7); Neutrophils # 2.3 10*3/uL (1.4-7.4); Neutrophils % 49.6 % (38.7-73.9); Platelet Count 101 T/CUMM (130-400); Red Blood Count 3.99 MC/CUMM (3.8-5.5); Red Cell Distribution Width 14.8 % (9.3-17.3); White Blood Count 4.7 T/CUMM (4-12)
[2017-10-28 06:06] LABS: Calcium 9.4 MG/DL (8.5-10.1); Osmolality,Calculated 269.4 MOS/KG (273-304)
[2017-10-28] MEDS ORDERED: APIXABAN 2.5 MG TABLET PO SCH (09:00)
[2017-10-28 11:25] VITALS: BP 118/86
[2017-10-28] MEDS ORDERED: PHENYLEPHRINE 50 MG/5 ML VIAL ONE (12:00)
[2017-10-28] MEDS ORDERED: PROPOFOL 200 MG/20 ML VIAL IV ONE (12:00)
[2017-10-28] MEDS ORDERED: LIDOCAINE 2% 5 ML VIAL ONE (12:00)
[2017-10-28] MEDS ORDERED: GLYCOPYRROLATE 0.4 MG/2 ML VIAL ONE (12:00)
[2017-10-28] MEDS: DEXT 5% NACL 0.9% KCL 20 MEQ 20 MEQ/1,000 ML BAG IV SCH (14:44)
== END 2017-10-28 14:42 | disposition home or self-care (01) | DRG 392 ==
LOC: N.ED 14:55 → N.EDINP 16:49 → N.3E 17:31
PROVIDERS: ADMIT Hospitalist; ATTEND Hospitalist

== ENCOUNTER 2018-01-04 13:09 | Observation (INO) ==
[2018-01-04 13:43] LABS: Basophils % 0.4 % (0.0-0.8); Eosinophils # 0.1 10*3/uL (0.0-0.87); Hematocrit 32.7 VOL% (42.0-52.0); Hemoglobin 11.4 GM/DL (14.0-18.0); Immature Granulocytes % 0.2 %; Immature Granulocytes Absolute 0.01 #; Lymphocytes % 39.8 % (21.2-54.2); Mean Corpuscular HGB Conc 34.9 GM/DL (32-36); Mean Corpuscular Hemoglobin 30 PG (27-34); Mean Corpuscular Volume 86.3 FL (87-102); Mean Platelet Volume 10.8 FL (9.6-12.0); Monocytes # 0.4 10*3/uL (0.11-0.8); Monocytes % 7.4 % (1.7-12.7); Neutrophils # 2.5 10*3/uL (1.4-7.4); Neutrophils % 50.2 % (38.7-73.9); Platelet Count 113 T/CUMM (130-400); Red Blood Count 3.79 MC/CUMM (3.8-5.5); Red Cell Distribution Width 15.8 % (9.3-17.3)
[2018-01-04 13:52] LABS: INR 1.4; PT Patient Result 14.7 SECS; Partial Thromboplastin Time 39.5 SECS (0-40)
[2018-01-04 14:04] LABS: Alanine Aminotransferase 52 U/L (16-61); Alkaline Phosphatase 79 U/L (45-117); Aspartate Amino Transferase 67 U/L (0-37); Blood Urea Nitrogen 44 MG/DL (7-18); Calcium 8.9 MG/DL (8.5-10.1); Glucose 119 MG/DL (74-106); Osmolality,Calculated 275.5 MOS/KG (273-304); Potassium 3.3 MMOL/L (3.5-5.1); Sodium 132 MMOL/L (136-145); Total Protein 7.3 G/DL (6.4-8.3); Troponin I Only < 0.015 NG/ML (0.00-0.045)
[2018-01-04] MEDS ORDERED: ALBUTEROL/IPRATROPIUM 3 ML NEB RESP TX STA (15:37)
[2018-01-04 17:16] LABS: Risk Ratio 4.89
[2018-01-04 20:14] LABS: Apearance,Urine CLEAR (Clear); Bilirubin,Urine Negative (Negative); Blood, Urine Moderate mg/dL (Negative); Glucose,Urine (UA) Negative (Negative); Ketones,Urine Negative (Negative); Nitrite,Urine Negative (Negative); Protein,Urine Negative; RBC,Urine 2 /HPF (0-4); Urine Color Straw (Yellow); Urine Specific Gravity 1.006 (1.001-1.035); Urine Urobilinogen < 2.0 EU/DL (0.2-1.0); WBC,Urine <1 /HPF (0-6)
[2018-01-04] MEDS: FUROSEMIDE 40 MG TABLET PO SCH (21:16)
[2018-01-04] MEDS: APIXABAN 2.5 MG TABLET PO SCH (21:16)
[2018-01-05 06:55] LABS: Basophils % 0.6 % (0.0-0.8); Eosinophils # 0.1 10*3/uL (0.0-0.87); Eosinophils % 2.5 % (0.00-10.9); Hematocrit 29.1 VOL% (42.0-52.0); Hemoglobin 9.8 GM/DL (14.0-18.0); Immature Granulocytes % 0.2 %; Immature Granulocytes Absolute 0.01 #; Lymphocytes # 1.8 10*3/uL (1.4-4.0); Lymphocytes % 35.5 % (21.2-54.2); Mean Corpuscular HGB Conc 33.7 GM/DL (32-36); Mean Corpuscular Hemoglobin 30 PG (27-34); Mean Corpuscular Volume 87.7 FL (87-102); Mean Platelet Volume 11.3 FL (9.6-12.0); Monocytes # 0.4 10*3/uL (0.11-0.8); Monocytes % 6.8 % (1.7-12.7); Neutrophils # 2.8 10*3/uL (1.4-7.4); Neutrophils % 54.4 % (38.7-73.9); Platelet Count 105 T/CUMM (130-400); Red Blood Count 3.32 MC/CUMM (3.8-5.5); Red Cell Distribution Width 15.7 % (9.3-17.3); White Blood Count 5.1 T/CUMM (4-12)
[2018-01-05 07:29] LABS: Albumin 3.5 G/DL (3.4-5.0); Bilirubin,Total 1.2 MG/DL (0.2-1.0); Calcium 8.5 MG/DL (8.5-10.1); Osmolality,Calculated 280.1 MOS/KG (273-304); Potassium 2.9 MMOL/L (3.5-5.1); Total Protein 6.6 G/DL (6.4-8.3)
[2018-01-05 07:35] LABS: Free T4 (Free Thyroxine) < 0.20 NG/DL (0.76-1.46)
[2018-01-05] MEDS: FUROSEMIDE 40 MG TABLET PO SCH ×2 (08:43→21:34)
[2018-01-05] MEDS: METOPROLOL SUCCINATE XL 25 MG TABLET PO SCH (08:43)
[2018-01-05] MEDS: APIXABAN 2.5 MG TABLET PO SCH ×2 (08:43→21:34)
[2018-01-05] MEDS: PANTOPRAZOLE 40 MG TABLET PO SCH (08:43)
[2018-01-05] MEDS ORDERED: FUROSEMIDE 80 MG TABLET PO SCH (09:00)
[2018-01-05] MEDS ORDERED: POLYETHYLENE GLYCOL POWDER 17 GM PACK PO ONE (09:35)
[2018-01-05] MEDS: POTASSIUM CHLORIDE RIDER 10 MEQ in PREMIX 1 EACH IV PRN ×4 (09:36→13:58)
[2018-01-05] MEDS: LEVOTHYROXINE 125 MCG TABLET PO SCH (10:19)
[2018-01-05] MEDS ORDERED: BISACODYL 5 MG TABLET PO PRN (17:56)
[2018-01-06] MEDS: LEVOTHYROXINE 125 MCG TABLET PO SCH (06:17)
[2018-01-06] MEDS ORDERED: LISINOPRIL 2.5 MG TABLET PO SCH (09:00)
[2018-01-06] MEDS ORDERED: POTASSIUM CHLORIDE 10 MEQ TABLET PO SCH (09:00)
[2018-01-06] MEDS: METOPROLOL SUCCINATE XL 25 MG TABLET PO SCH (09:20)
[2018-01-06] MEDS: PANTOPRAZOLE 40 MG TABLET PO SCH (09:20)
[2018-01-06] MEDS: FUROSEMIDE 40 MG TABLET PO SCH (09:20)
[2018-01-06] MEDS: APIXABAN 2.5 MG TABLET PO SCH (09:20)
[2018-01-06 11:41] VITALS: BP 123/74
[2018-01-06] MEDS ORDERED: POTASSIUM CHLORIDE 20 MEQ TABLET PO SCH (12:18)
== END 2018-01-06 15:28 | disposition home health service (06) ==
LOC: N.ED 13:09 → N.EDINP 13:09 → N.TELEN 18:46
PROVIDERS: ADMIT Internal Medicine Geriatric Medicine; ATTEND Internal Medicine Geriatric Medicine

== ENCOUNTER 2018-02-08 13:27 | Inpatient (IN) ==
[2018-02-08] MEDS ORDERED: methylPREDNISolone SOD SUC 125 MG/2 ML VIAL IV STA (14:50)
[2018-02-08] MEDS ORDERED: LEVOFLOXACIN INJ 750 MG in PREMIX 1 EACH IV STA (14:50)
[2018-02-08] MEDS ORDERED: ONDANSETRON 4 MG/2 ML VIAL IV STA (14:50)
[2018-02-08] MEDS ORDERED: ALBUTEROL NEB SOLN 5 MG/ML 20 ML/BOTTLE RESP TX SCH (15:00)
[2018-02-08 15:28] LABS: Basophils % 0.4 % (0.0-0.8); Eosinophils # 0.1 10*3/uL (0.0-0.87); Hematocrit 29.7 VOL% (42.0-52.0); Hemoglobin 10.3 GM/DL (14.0-18.0); Immature Granulocytes % 0.4 %; Immature Granulocytes Absolute 0.02 #; Lymphocytes # 1.4 10*3/uL (1.4-4.0); Mean Corpuscular HGB Conc 34.7 GM/DL (32-36); Mean Corpuscular Hemoglobin 31 PG (27-34); Mean Corpuscular Volume 88.9 FL (87-102); Mean Platelet Volume 11.4 FL (9.6-12.0); Monocytes # 0.5 10*3/uL (0.11-0.8); Monocytes % 9.4 % (1.7-12.7); Neutrophils # 2.9 10*3/uL (1.4-7.4); Neutrophils % 59.8 % (38.7-73.9); Platelet Count 117 T/CUMM (130-400); Red Blood Count 3.34 MC/CUMM (3.8-5.5); Red Cell Distribution Width 14.6 % (9.3-17.3); White Blood Count 4.8 T/CUMM (4-12)
[2018-02-08 15:36] LABS: INR 1.9
[2018-02-08 15:37] LABS: Partial Thromboplastin Time 50.4 SECS (0-40)
[2018-02-08 15:53] LABS: Bilirubin,Total 1.2 MG/DL (0.2-1.0); CKMB % 4.8 %; Calcium 8.8 MG/DL (8.5-10.1); Osmolality,Calculated 288.7 MOS/KG (273-304); Potassium 3.4 MMOL/L (3.5-5.1); Total Protein 7.2 G/DL (6.4-8.3)
[2018-02-08 15:54] LABS: Troponin I Only 0.098 NG/ML (0.00-0.045)
[2018-02-08] MEDS ORDERED: BISACODYL 5 MG TABLET PO PRN (17:24)
[2018-02-08 17:45] LABS: Apearance,Urine CLEAR (Clear); Bilirubin,Urine Negative (Negative); Blood, Urine Small mg/dL (Negative); Glucose,Urine (UA) Negative (Negative); Hyaline Casts,Urine 7 /LPF (0-3); Ketones,Urine Negative (Negative); Mucus,Urine Occasional /LPF (Occasional); Nitrite,Urine Negative (Negative); Protein,Urine Negative; RBC,Urine 1 /HPF (0-4); Squamous Epithelial Cell,Urine Occasional /HPF (0-10); Urine Color Yellow (Yellow); Urine Specific Gravity 1.008 (1.001-1.035); Urine Urobilinogen < 2.0 EU/DL (0.2-1.0); WBC,Urine <1 /HPF (0-6)
[2018-02-08] MEDS ORDERED: LEVOFLOXACIN INJ 250 MG in PREMIX 1 EACH IV STA (17:46)
[2018-02-08] MEDS ORDERED: MAGNESIUM SULF RIDER 2 GM in PREMIX 1 EACH IV PRN (17:47)
[2018-02-08] MEDS ORDERED: POTASSIUM CHLORIDE RIDER 10 MEQ in PREMIX 1 EACH IV PRN (17:47)
[2018-02-08] MEDS: ALBUTEROL/IPRATROPIUM 3 ML NEB RESP TX SCH (18:45)
[2018-02-08] MEDS: APIXABAN 2.5 MG TABLET PO SCH (20:56)
[2018-02-09] MEDS: ALBUTEROL/IPRATROPIUM 3 ML NEB RESP TX SCH ×4 (00:39→18:50)
[2018-02-09] MEDS: LEVOTHYROXINE 125 MCG TABLET PO SCH (06:43)
[2018-02-09] MEDS ORDERED: BENZOCAINE/MENTHOL LOZENGE 18/BOX PO PRN (08:24)
[2018-02-09] MEDS ORDERED: POTASSIUM CHLORIDE 20 MEQ TABLET PO SCH (09:00)
[2018-02-09] MEDS ORDERED: FUROSEMIDE 40 MG/4 ML VIAL IV SCH (09:00)
[2018-02-09 09:05] LABS: Basophils % 0.2 % (0.0-0.8); Hematocrit 29.4 VOL% (42.0-52.0); Immature Granulocytes % 0.5 %; Immature Granulocytes Absolute 0.02 #; Lymphocytes # 0.7 10*3/uL (1.4-4.0); Lymphocytes % 15.3 % (21.2-54.2); Mean Corpuscular Hemoglobin 31 PG (27-34); Mean Corpuscular Volume 90.2 FL (87-102); Mean Platelet Volume 11.7 FL (9.6-12.0); Monocytes % 0.7 % (1.7-12.7); Neutrophils # 3.7 10*3/uL (1.4-7.4); Neutrophils % 83.3 % (38.7-73.9); Platelet Count 100 T/CUMM (130-400); Red Blood Count 3.26 MC/CUMM (3.8-5.5); Red Cell Distribution Width 14.8 % (9.3-17.3); White Blood Count 4.4 T/CUMM (4-12)
[2018-02-09] MEDS: APIXABAN 2.5 MG TABLET PO SCH ×2 (09:17→21:49)
[2018-02-09] MEDS: PANTOPRAZOLE 40 MG TABLET PO SCH (09:18)
[2018-02-09 09:30] LABS: Band Neutrophils 1 % (0-10); Burr Cells Slight; Calcium 9.1 MG/DL (8.5-10.1); Hypochromasia Slight; Lymphocytes 17 % (20-55); Nucleated Red Blood Cells 1 (0-5); Osmolality,Calculated 288.8 MOS/KG (273-304); Ovalocytes Slight; Platelet Estimate Decreased; Potassium 3.9 MMOL/L (3.5-5.1); Segmented Neutrophils 81 % (50-85); Total Cells Counted 100
[2018-02-09] MEDS: METOPROLOL SUCCINATE XL 25 MG TABLET PO SCH (10:38)
[2018-02-09] MEDS: FUROSEMIDE 40 MG/4 ML VIAL IV SCH (16:18)
[2018-02-10 06:03] LABS: Basophils % 0.1 % (0.0-0.8); Hematocrit 28.6 VOL% (42.0-52.0); Hemoglobin 9.8 GM/DL (14.0-18.0); Immature Granulocytes % 0.4 %; Immature Granulocytes Absolute 0.05 #; Lymphocytes # 0.6 10*3/uL (1.4-4.0); Lymphocytes % 4.6 % (21.2-54.2); Mean Corpuscular HGB Conc 34.3 GM/DL (32-36); Mean Corpuscular Hemoglobin 31 PG (27-34); Mean Corpuscular Volume 89.4 FL (87-102); Mean Platelet Volume 12.1 FL (9.6-12.0); Monocytes # 0.3 10*3/uL (0.11-0.8); Monocytes % 2.4 % (1.7-12.7); Neutrophils % 92.5 % (38.7-73.9); Platelet Count 89 T/CUMM (130-400); Red Cell Distribution Width 14.7 % (9.3-17.3); White Blood Count 12.9 T/CUMM (4-12)
[2018-02-10] MEDS: LEVOTHYROXINE 125 MCG TABLET PO SCH (06:06)
[2018-02-10 06:34] LABS: Calcium 9.2 MG/DL (8.5-10.1); Osmolality,Calculated 288.5 MOS/KG (273-304); Potassium 3.3 MMOL/L (3.5-5.1)
[2018-02-10] MEDS: ALBUTEROL/IPRATROPIUM 3 ML NEB RESP TX SCH ×4 (07:35→19:20)
[2018-02-10 07:59] LABS: Burr Cells 2+; Target Cells Slight
[2018-02-10] MEDS: APIXABAN 2.5 MG TABLET PO SCH ×2 (11:22→20:36)
[2018-02-10] MEDS: PANTOPRAZOLE 40 MG TABLET PO SCH (11:22)
[2018-02-10] MEDS: POTASSIUM CHLORIDE 20 MEQ TABLET PO SCH ×2 (11:22→20:37)
[2018-02-10] MEDS: METOPROLOL SUCCINATE XL 25 MG TABLET PO SCH (11:22)
[2018-02-10] MEDS: FUROSEMIDE 40 MG/4 ML VIAL IV SCH ×2 (11:23→18:29)
[2018-02-11] MEDS: ALBUTEROL/IPRATROPIUM 3 ML NEB RESP TX SCH ×4 (01:11→19:07)
[2018-02-11] MEDS: LEVOTHYROXINE 125 MCG TABLET PO SCH (06:22)
[2018-02-11 07:18] LABS: Osmolality,Calculated 289.4 MOS/KG (273-304); Potassium 3.4 MMOL/L (3.5-5.1)
[2018-02-11] MEDS ORDERED: FUROSEMIDE 40 MG TABLET PO SCH (09:00)
[2018-02-11] MEDS: FUROSEMIDE 40 MG/4 ML VIAL IV SCH (10:04)
[2018-02-11] MEDS: POTASSIUM CHLORIDE 20 MEQ TABLET PO SCH ×2 (10:06→21:38)
[2018-02-11] MEDS: METOPROLOL SUCCINATE XL 25 MG TABLET PO SCH (10:06)
[2018-02-11] MEDS: APIXABAN 2.5 MG TABLET PO SCH ×2 (10:07→21:37)
[2018-02-11] MEDS: PANTOPRAZOLE 40 MG TABLET PO SCH (10:07)
[2018-02-11] MEDS: FUROSEMIDE 80 MG TABLET PO SCH (16:37)
[2018-02-12] MEDS: ALBUTEROL/IPRATROPIUM 3 ML NEB RESP TX SCH ×2 (00:53→07:55)
[2018-02-12] MEDS ORDERED: LEVOTHYROXINE 112 MCG TABLET PO SCH (06:30)
[2018-02-12] MEDS: FUROSEMIDE 80 MG TABLET PO SCH (08:43)
[2018-02-12] MEDS: PANTOPRAZOLE 40 MG TABLET PO SCH (08:44)
[2018-02-12] MEDS: POTASSIUM CHLORIDE 20 MEQ TABLET PO SCH (08:44)
[2018-02-12] MEDS: METOPROLOL SUCCINATE XL 25 MG TABLET PO SCH (08:44)
[2018-02-12] MEDS: APIXABAN 2.5 MG TABLET PO SCH (08:44)
[2018-02-12 14:54] VITALS: BP 99/56
== END 2018-02-12 12:15 | disposition swing bed (61) | DRG 291 ==
LOC: N.ED 13:27 → N.EDINP 17:18 → N.5E 18:55

== ENCOUNTER 2018-03-19 18:00 | Inpatient (IN) ==
[2018-03-19 18:50] LABS: Basophils % 0.1 % (0.0-0.8); Hematocrit 34.5 VOL% (42.0-52.0); Hemoglobin 11.3 GM/DL (14.0-18.0); Immature Granulocytes % 0.6 %; Mean Corpuscular HGB Conc 32.8 GM/DL (32-36); Mean Corpuscular Hemoglobin 27 PG (27-34); Mean Platelet Volume 11.4 FL (9.6-12.0); Monocytes % 5.3 % (1.7-12.7); Neutrophils # 17.1 10*3/uL (1.4-7.4); Platelet Count 110 T/CUMM (130-400); Red Blood Count 4.26 MC/CUMM (3.8-5.5); Red Cell Distribution Width 18.1 % (9.3-17.3); White Blood Count 18.1 T/CUMM (4-12)
[2018-03-19 19:26] LABS: Calcium 9.1 MG/DL (8.5-10.1); Osmolality,Calculated 287.9 MOS/KG (273-304); Potassium 3.7 MMOL/L (3.5-5.1)
[2018-03-19 19:54] LABS: Band Neutrophils 2 % (0-10); Lymphocytes 2 % (20-55); Nucleated Red Blood Cells 6 (0-5); Platelet Estimate Adequate; Segmented Neutrophils 93 % (50-85); Total Cells Counted 100
[2018-03-19 19:58] LABS: Sedimentation Rate-Westergren 2 MM/HR (0-20)
[2018-03-19] MEDS ORDERED: SODIUM CHLORIDE 0.9% 1,000 ML IV STA (20:26)
[2018-03-19 21:33] LABS: Lactic Acid 3.5 MMOL/L (0.4-2.0)
[2018-03-19] MEDS ORDERED: MORPHINE 4 MG/1 ML VIAL IV STA (21:44)
[2018-03-19] MEDS ORDERED: ACETAMINOPHEN 325 MG TABLET PO PRN (22:43)
[2018-03-19 23:45] LABS: Risk Ratio 6.31; Thyroid Stimulating Hormone 0.083 uIU/ml (0.358-3.74); VLDL CHOLESTEROL 15.2 MG/DL
[2018-03-19] MEDS: CEFTAROLINE 300 MG in SODIUM CHLORIDE 0.9% 100 ML IV SCH (23:55)
[2018-03-20] MEDS ORDERED: LEVOTHYROXINE 125 MCG TABLET PO SCH (06:30)
[2018-03-20 06:51] LABS: Basophils % 0.1 % (0.0-0.8); Hemoglobin 11.2 GM/DL (14.0-18.0); Immature Granulocytes % 0.2 %; Immature Granulocytes Absolute 0.02 #; Lymphocytes # 0.1 10*3/uL (1.4-4.0); Lymphocytes % 1.4 % (21.2-54.2); Mean Corpuscular HGB Conc 32.9 GM/DL (32-36); Mean Corpuscular Hemoglobin 26 PG (27-34); Mean Corpuscular Volume 78.5 FL (87-102); Monocytes # 0.5 10*3/uL (0.11-0.8); NRBC # 0.38 10*3/uL; Neutrophils # 8.2 10*3/uL (1.4-7.4); Neutrophils % 92.3 % (38.7-73.9); Red Blood Count 4.33 MC/CUMM (3.8-5.5); Red Cell Distribution Width 18.1 % (9.3-17.3); White Blood Count 8.8 T/CUMM (4-12)
[2018-03-20 06:55] LABS: Platelet Count 94 T/CUMM (130-400)
[2018-03-20 07:13] LABS: Calcium 8.9 MG/DL (8.5-10.1); Osmolality,Calculated 293.5 MOS/KG (273-304); Potassium 3.3 MMOL/L (3.5-5.1)
[2018-03-20 07:32] LABS: Band Neutrophils 4 % (0-10); Hypochromasia 1+; Lymphocytes 1 % (20-55); Nucleated Red Blood Cells 4 (0-5); Platelet Estimate Decreased; Segmented Neutrophils 88 % (50-85); Total Cells Counted 100
[2018-03-20 07:33] LABS: Burr Cells Slight; Macrocytosis Slight; Ovalocytes Slight
[2018-03-20] MEDS ORDERED: METOPROLOL SUCCINATE XL 25 MG TABLET PO SCH (09:00)
[2018-03-20] MEDS ORDERED: predniSONE 10 MG TABLET PO SCH (09:00)
[2018-03-20] MEDS ORDERED: POTASSIUM CHLORIDE 20 MEQ TABLET PO PRN (09:32)
[2018-03-20] MEDS ORDERED: CARBOXYMETHYLCELLULOSE 1% OPH SOLN BOTH EYES PRN (09:33)
[2018-03-20] MEDS: APIXABAN 2.5 MG TABLET PO SCH ×2 (09:56→23:23)
[2018-03-20] MEDS: PANTOPRAZOLE 40 MG TABLET PO SCH (09:56)
[2018-03-20] MEDS: POTASSIUM CHLORIDE RIDER 10 MEQ in PREMIX 1 EACH IV PRN ×4 (10:15→18:26)
[2018-03-20] MEDS ORDERED: SODIUM CHLORIDE 0.9% 1,000 ML IV SCH (10:30)
[2018-03-20] MEDS: CEFTAROLINE 300 MG in SODIUM CHLORIDE 0.9% 100 ML IV SCH ×2 (12:17→23:24)
[2018-03-20 16:44] LABS: Apearance,Urine CLEAR (Clear); Bilirubin,Urine Negative (Negative); Blood, Urine Negative (Negative); Glucose,Urine (UA) Negative (Negative); Ketones,Urine Negative (Negative); Mucus,Urine Occasional /LPF (Occasional); Nitrite,Urine Negative (Negative); Protein,Urine Negative; RBC,Urine <1 /HPF (0-4); Urine Color Yellow (Yellow); Urine Specific Gravity 1.009 (1.001-1.035); Urine Urobilinogen < 2.0 EU/DL (0.2-1.0); WBC,Urine 1 /HPF (0-6)
[2018-03-21] MEDS: POTASSIUM CHLORIDE RIDER 10 MEQ in PREMIX 1 EACH IV PRN ×3 (06:26→12:14)
[2018-03-21] MEDS: LEVOTHYROXINE 100 MCG TABLET PO SCH (06:26)
[2018-03-21 06:46] LABS: Basophils % 0.1 % (0.0-0.8); Hematocrit 30.6 VOL% (42.0-52.0); Hemoglobin 10.3 GM/DL (14.0-18.0); Immature Granulocytes % 0.3 %; Immature Granulocytes Absolute 0.02 #; Lymphocytes # 0.3 10*3/uL (1.4-4.0); Lymphocytes % 3.2 % (21.2-54.2); Mean Corpuscular HGB Conc 33.7 GM/DL (32-36); Mean Corpuscular Hemoglobin 27 PG (27-34); Mean Corpuscular Volume 79.1 FL (87-102); Monocytes # 0.5 10*3/uL (0.11-0.8); Monocytes % 6.2 % (1.7-12.7); NRBC # 0.22 10*3/uL; Neutrophils % 90.2 % (38.7-73.9); Red Blood Count 3.87 MC/CUMM (3.8-5.5); Red Cell Distribution Width 18.2 % (9.3-17.3); White Blood Count 7.8 T/CUMM (4-12)
[2018-03-21 06:49] LABS: Platelet Count 82 T/CUMM (130-400)
[2018-03-21 07:13] LABS: Band Neutrophils 3 % (0-10); Burr Cells Slight; Hypochromasia 1+; Lymphocytes 3 % (20-55); Nucleated Red Blood Cells 2 (0-5); Ovalocytes Slight; Platelet Estimate Decreased; Segmented Neutrophils 89 % (50-85); Total Cells Counted 100
[2018-03-21 07:14] LABS: Macrocytosis Slight
[2018-03-21 07:21] LABS: Albumin 2.4 G/DL (3.4-5.0); Osmolality,Calculated 293.7 MOS/KG (273-304); Potassium 3.9 MMOL/L (3.5-5.1); Total Protein 4.9 G/DL (6.4-8.3)
[2018-03-21] MEDS: PANTOPRAZOLE 40 MG TABLET PO SCH (09:38)
[2018-03-21] MEDS: APIXABAN 2.5 MG TABLET PO SCH ×2 (09:38→21:21)
[2018-03-21] MEDS: CEFTAROLINE 300 MG in SODIUM CHLORIDE 0.9% 100 ML IV SCH (13:02)
[2018-03-22] MEDS: CEFTAROLINE 300 MG in SODIUM CHLORIDE 0.9% 100 ML IV SCH ×3 (01:40→15:25)
[2018-03-22] MEDS: LEVOTHYROXINE 100 MCG TABLET PO SCH (06:05)
[2018-03-22 07:23] LABS: Basophils % 0.1 % (0.0-0.8); Hematocrit 33.3 VOL% (42.0-52.0); Immature Granulocytes % 0.3 %; Immature Granulocytes Absolute 0.02 #; Lymphocytes # 0.4 10*3/uL (1.4-4.0); Lymphocytes % 5.3 % (21.2-54.2); Mean Corpuscular Hemoglobin 26 PG (27-34); Mean Corpuscular Volume 78.7 FL (87-102); Monocytes # 0.4 10*3/uL (0.11-0.8); Monocytes % 5.3 % (1.7-12.7); NRBC # 0.19 10*3/uL; Neutrophils # 6.1 10*3/uL (1.4-7.4); Platelet Count 73 T/CUMM (130-400); Red Blood Count 4.23 MC/CUMM (3.8-5.5); Red Cell Distribution Width 18.5 % (9.3-17.3); White Blood Count 6.8 T/CUMM (4-12)
[2018-03-22 07:52] LABS: Albumin 2.4 G/DL (3.4-5.0); Bilirubin,Total 3.1 MG/DL (0.2-1.0); Calcium 8.7 MG/DL (8.5-10.1); Osmolality,Calculated 290.8 MOS/KG (273-304); Potassium 4.6 MMOL/L (3.5-5.1); Total Protein 5.2 G/DL (6.4-8.3)
[2018-03-22 07:53] LABS: Acanthocytes 1+; Band Neutrophils 2 % (0-10); Burr Cells Few; Hypochromasia 2+; Lymphocytes 8 % (20-55); Nucleated Red Blood Cells 1 (0-5); Segmented Neutrophils 88 % (50-85); Total Cells Counted 100
[2018-03-22 07:54] LABS: Microcytosis 1+; Poikilocytosis 1+; Target Cells Slight
[2018-03-22 07:55] LABS: Platelet Estimate Decreased
[2018-03-22] MEDS: APIXABAN 2.5 MG TABLET PO SCH ×2 (08:22→20:55)
[2018-03-22] MEDS: SODIUM CHLORIDE 0.9% 1,000 ML IV SCH (09:28)
[2018-03-22] MEDS: cefTAZidime 1,000 MG in SYRINGE 1 EACH IV SCH (14:45)
[2018-03-22] MEDS: CIPROFLOXACIN INJ 400 MG in PREMIX 1 EACH IV SCH (14:46)
[2018-03-23] MEDS: SODIUM CHLORIDE 0.9% 1,000 ML IV SCH ×3 (03:27→20:38)
[2018-03-23] MEDS: LEVOTHYROXINE 100 MCG TABLET PO SCH (05:40)
[2018-03-23 06:26] LABS: Basophils % 0.1 % (0.0-0.8); Eosinophils % 0.1 % (0.00-10.9); Hematocrit 32.4 VOL% (42.0-52.0); Hemoglobin 10.7 GM/DL (14.0-18.0); Immature Granulocytes % 0.6 %; Immature Granulocytes Absolute 0.05 #; Lymphocytes # 0.3 10*3/uL (1.4-4.0); Lymphocytes % 3.6 % (21.2-54.2); Mean Corpuscular Hemoglobin 26 PG (27-34); Mean Corpuscular Volume 79.2 FL (87-102); Monocytes # 0.5 10*3/uL (0.11-0.8); Monocytes % 5.5 % (1.7-12.7); NRBC # 0.22 10*3/uL; Neutrophils # 7.5 10*3/uL (1.4-7.4); Neutrophils % 90.1 % (38.7-73.9); Red Blood Count 4.09 MC/CUMM (3.8-5.5); Red Cell Distribution Width 18.5 % (9.3-17.3); White Blood Count 8.4 T/CUMM (4-12)
[2018-03-23 06:27] LABS: Platelet Count 53 T/CUMM (130-400)
[2018-03-23 06:52] LABS: Band Neutrophils 5 % (0-10); Hypochromasia 1+; Lymphocytes 2 % (20-55); Nucleated Red Blood Cells 3 (0-5); Platelet Estimate Decreased; Segmented Neutrophils 86 % (50-85); Total Cells Counted 100
[2018-03-23 06:53] LABS: Burr Cells Slight; Microcytosis Slight; Ovalocytes Slight; Target Cells Few
[2018-03-23 07:00] LABS: Albumin 2.3 G/DL (3.4-5.0); Bilirubin,Total 3.4 MG/DL (0.2-1.0); Calcium 8.3 MG/DL (8.5-10.1); Osmolality,Calculated 291.7 MOS/KG (273-304); Potassium 5.1 MMOL/L (3.5-5.1)
[2018-03-23] MEDS: APIXABAN 2.5 MG TABLET PO SCH (08:45)
[2018-03-23] MEDS: CIPROFLOXACIN INJ 400 MG in PREMIX 1 EACH IV SCH (08:45)
[2018-03-23] MEDS ORDERED: SODIUM CHLORIDE 0.9% 500 ML IV ONE (11:16)
[2018-03-23] MEDS: cefTAZidime 1,000 MG in SYRINGE 1 EACH IV SCH (13:54)
[2018-03-24] MEDS: SODIUM CHLORIDE 0.9% 1,000 ML IV SCH ×2 (00:50→09:52)
[2018-03-24] MEDS: CIPROFLOXACIN INJ 400 MG in PREMIX 1 EACH IV SCH ×2 (00:50→20:24)
[2018-03-24] MEDS: LEVOTHYROXINE 100 MCG TABLET PO SCH (05:36)
[2018-03-24 08:44] LABS: Albumin 2.2 G/DL (3.4-5.0); Calcium 8.7 MG/DL (8.5-10.1); Osmolality,Calculated 294.5 MOS/KG (273-304); Potassium 5.2 MMOL/L (3.5-5.1); Total Protein 5.2 G/DL (6.4-8.3)
[2018-03-24 09:55] LABS: INR 1.7; PT Patient Result 17.3 SECS
[2018-03-24 10:03] LABS: Partial Thromboplastin Time 77.7 SECS (0-40)
[2018-03-24] MEDS ORDERED: SODIUM CHLORIDE 0.9% 1,000 ML IV SCH ×2 (12:30→17:56)
[2018-03-24] MEDS: cefTAZidime 1,000 MG in SYRINGE 1 EACH IV SCH ×2 (13:30→17:58)
[2018-03-25] MEDS: LEVOTHYROXINE 100 MCG TABLET PO SCH (06:08)
[2018-03-25 07:32] LABS: Albumin 2.1 G/DL (3.4-5.0); Bilirubin,Total 3.1 MG/DL (0.2-1.0); Calcium 9.1 MG/DL (8.5-10.1); Osmolality,Calculated 296.4 MOS/KG (273-304); Potassium 5.1 MMOL/L (3.5-5.1)
[2018-03-25 09:14] LABS: Basophils % 0.1 % (0.0-0.8); Eosinophils # 0.1 10*3/uL (0.0-0.87); Eosinophils % 0.6 % (0.00-10.9); Hematocrit 33.2 VOL% (42.0-52.0); Hemoglobin 10.7 GM/DL (14.0-18.0); Immature Granulocytes % 0.7 %; Immature Granulocytes Absolute 0.06 #; Lymphocytes # 0.4 10*3/uL (1.4-4.0); Lymphocytes % 5.4 % (21.2-54.2); Mean Corpuscular HGB Conc 32.2 GM/DL (32-36); Mean Corpuscular Hemoglobin 26 PG (27-34); Mean Corpuscular Volume 79.2 FL (87-102); Monocytes # 0.3 10*3/uL (0.11-0.8); Monocytes % 4.1 % (1.7-12.7); NRBC # 0.15 10*3/uL; Neutrophils # 7.3 10*3/uL (1.4-7.4); Neutrophils % 89.1 % (38.7-73.9); Platelet Count 52 T/CUMM (130-400); Red Blood Count 4.19 MC/CUMM (3.8-5.5); Red Cell Distribution Width 19.1 % (9.3-17.3); White Blood Count 8.2 T/CUMM (4-12)
[2018-03-25 09:30] LABS: Burr Cells Slight; Hypochromasia 1+; Microcytosis Slight; Platelet Estimate Decreased
[2018-03-25] MEDS ORDERED: ALBUMIN 25% 25 GM in PREMIX 1 EACH IV ONE (09:50)
[2018-03-25] MEDS: FUROSEMIDE 80 MG TABLET PO SCH (11:40)
[2018-03-25] MEDS: CIPROFLOXACIN INJ 400 MG in PREMIX 1 EACH IV SCH (13:00)
[2018-03-25] MEDS ORDERED: LEVOFLOXACIN INJ 500 MG in PREMIX 1 EACH IV ONE (15:00)
[2018-03-26] MEDS: LEVOTHYROXINE 100 MCG TABLET PO SCH (06:25)
[2018-03-26 07:21] LABS: Basophils % 0.1 % (0.0-0.8); Eosinophils # 0.1 10*3/uL (0.0-0.87); Eosinophils % 0.6 % (0.00-10.9); Hematocrit 31.6 VOL% (42.0-52.0); Hemoglobin 10.5 GM/DL (14.0-18.0); Immature Granulocytes % 0.8 %; Immature Granulocytes Absolute 0.07 #; Lymphocytes # 0.4 10*3/uL (1.4-4.0); Lymphocytes % 4.7 % (21.2-54.2); Mean Corpuscular HGB Conc 33.2 GM/DL (32-36); Mean Corpuscular Hemoglobin 26 PG (27-34); Mean Corpuscular Volume 77.6 FL (87-102); Monocytes # 0.3 10*3/uL (0.11-0.8); Monocytes % 3.1 % (1.7-12.7); NRBC # 0.12 10*3/uL; Neutrophils # 8.1 10*3/uL (1.4-7.4); Neutrophils % 90.7 % (38.7-73.9); Platelet Count 47 T/CUMM (130-400); Red Blood Count 4.07 MC/CUMM (3.8-5.5); Red Cell Distribution Width 19.2 % (9.3-17.3); White Blood Count 8.9 T/CUMM (4-12)
[2018-03-26 07:41] LABS: Band Neutrophils 4 % (0-10); Hypochromasia 1+; Lymphocytes 3 % (20-55); Ovalocytes Slight; Platelet Estimate Decreased; Segmented Neutrophils 89 % (50-85); Total Cells Counted 100
[2018-03-26 07:42] LABS: Acanthocytes Few; Microcytosis Slight
[2018-03-26 07:53] LABS: Albumin 2.3 G/DL (3.4-5.0); Bilirubin,Total 3.4 MG/DL (0.2-1.0); Osmolality,Calculated 296.4 MOS/KG (273-304); Potassium 5.3 MMOL/L (3.5-5.1); Total Protein 4.9 G/DL (6.4-8.3)
[2018-03-26] MEDS: FUROSEMIDE 80 MG TABLET PO SCH (08:52)
[2018-03-26 14:42] LABS: Apearance,Urine CLEAR (Clear); Bacteria,Urine Occasional /HPF (Few); Bilirubin,Urine Negative (Negative); Blood, Urine Negative (Negative); Glucose,Urine (UA) Negative (Negative); Ketones,Urine Negative (Negative); Nitrite,Urine Negative (Negative); Protein,Urine Negative; RBC,Urine <1 /HPF (0-4); Urine Color Yellow (Yellow); Urine Specific Gravity 1.011 (1.001-1.035); Urine Urobilinogen < 2.0 EU/DL (0.2-1.0)
[2018-03-26] MEDS: LEVOFLOXACIN INJ 250 MG in PREMIX 1 EACH IV SCH (15:42)
[2018-03-26] MEDS ORDERED: TUBERCULIN SKIN TEST 0.1 ML SYRINGE INTRADERM ONE (16:22)
[2018-03-27] MEDS: LEVOTHYROXINE 100 MCG TABLET PO SCH (06:15)
[2018-03-27 07:10] LABS: Basophils % 0.1 % (0.0-0.8); Eosinophils # 0.1 10*3/uL (0.0-0.87); Eosinophils % 0.6 % (0.00-10.9); Hemoglobin 10.9 GM/DL (14.0-18.0); Immature Granulocytes Absolute 0.14 #; Lymphocytes # 0.5 10*3/uL (1.4-4.0); Lymphocytes % 3.3 % (21.2-54.2); Mean Corpuscular Hemoglobin 26 PG (27-34); Mean Corpuscular Volume 78.9 FL (87-102); Monocytes # 0.5 10*3/uL (0.11-0.8); Monocytes % 3.4 % (1.7-12.7); NRBC # 0.11 10*3/uL; Neutrophils # 13.3 10*3/uL (1.4-7.4); Neutrophils % 91.6 % (38.7-73.9); Red Blood Count 4.18 MC/CUMM (3.8-5.5); Red Cell Distribution Width 19.8 % (9.3-17.3); White Blood Count 14.5 T/CUMM (4-12)
[2018-03-27 07:11] LABS: Platelet Count 52 T/CUMM (130-400)
[2018-03-27 07:16] LABS: INR 1.7; PT Patient Result 17.2 SECS
[2018-03-27 07:28] LABS: Partial Thromboplastin Time 80.2 SECS (0-40)
[2018-03-27 07:34] LABS: Calcium 9.2 MG/DL (8.5-10.1); Osmolality,Calculated 300.4 MOS/KG (273-304); Potassium 5.8 MMOL/L (3.5-5.1)
[2018-03-27 07:37] LABS: Band Neutrophils 1 % (0-10); Eosinophils 1 % (0-10); Lymphocytes 2 % (20-55); Nucleated Red Blood Cells 1 (0-5); Segmented Neutrophils 92 % (50-85); Total Cells Counted 100
[2018-03-27 07:38] LABS: Burr Cells Few; Hypochromasia 2+; Target Cells Few
[2018-03-27 07:39] LABS: Anisocytosis 1+; Microcytosis 1+
[2018-03-27] MEDS ORDERED: DEXTROSE 50% 25 GM/50 ML VIAL IV ONE (07:39)
[2018-03-27 07:40] LABS: Acanthocytes 1+; Platelet Estimate Decreased
[2018-03-27] MEDS ORDERED: DEXTROSE 50% 25 GM/50 ML VIAL IV PRN (07:49)
[2018-03-27] MEDS ORDERED: PHYTONADIONE 5 MG/5 ML ORAL.SYR PO ONE (08:52)
[2018-03-27] MEDS: FUROSEMIDE 80 MG TABLET PO SCH (10:21)
[2018-03-27] MEDS: SODIUM BICARB INJ 50 MEQ in DEXTROSE 5% NACL 0.45% 1,000 ML IV SCH (11:18)
[2018-03-27] MEDS: LEVOFLOXACIN INJ 250 MG in PREMIX 1 EACH IV SCH (16:39)
[2018-03-28] MEDS: SODIUM BICARB INJ 50 MEQ in DEXTROSE 5% NACL 0.45% 1,000 ML IV SCH ×2 (06:16→23:31)
[2018-03-28 07:03] LABS: Basophils % 0.2 % (0.0-0.8); Eosinophils # 0.1 10*3/uL (0.0-0.87); Eosinophils % 1.2 % (0.00-10.9); Hematocrit 31.5 VOL% (42.0-52.0); Hemoglobin 10.7 GM/DL (14.0-18.0); Immature Granulocytes % 0.7 %; Immature Granulocytes Absolute 0.08 #; Lymphocytes # 0.5 10*3/uL (1.4-4.0); Lymphocytes % 4.2 % (21.2-54.2); Mean Corpuscular Hemoglobin 26 PG (27-34); Mean Corpuscular Volume 76.6 FL (87-102); Monocytes # 0.4 10*3/uL (0.11-0.8); Monocytes % 3.4 % (1.7-12.7); NRBC # 0.09 10*3/uL; Neutrophils # 10.6 10*3/uL (1.4-7.4); Neutrophils % 90.3 % (38.7-73.9); Red Blood Count 4.11 MC/CUMM (3.8-5.5); Red Cell Distribution Width 19.7 % (9.3-17.3); White Blood Count 11.7 T/CUMM (4-12)
[2018-03-28 07:05] LABS: Platelet Count 45 T/CUMM (130-400)
[2018-03-28] MEDS: LEVOTHYROXINE 100 MCG TABLET PO SCH (07:09)
[2018-03-28 07:12] LABS: INR 1.7; PT Patient Result 17.4 SECS
[2018-03-28 07:27] LABS: Calcium 8.7 MG/DL (8.5-10.1); Osmolality,Calculated 308.1 MOS/KG (273-304); Potassium 5.6 MMOL/L (3.5-5.1)
[2018-03-28 07:33] LABS: Partial Thromboplastin Time 81.6 SECS (0-40)
[2018-03-28] MEDS ORDERED: SODIUM CHLORIDE 0.9% 500 ML IV ONE (07:38)
[2018-03-28 08:28] LABS: Band Neutrophils 1 % (0-10); Eosinophils 1 % (0-10); Hypochromasia 2+; Lymphocytes 2 % (20-55); Microcytosis 1+; Nucleated Red Blood Cells 1 (0-5); Poikilocytosis 1+; Segmented Neutrophils 95 % (50-85); Total Cells Counted 100
[2018-03-28 08:29] LABS: Acanthocytes 1+; Anisocytosis 1+; Burr Cells Few; Ovalocytes Slight; Polychromasia Slight; Target Cells Slight
[2018-03-28 08:30] LABS: Platelet Estimate Decreased
[2018-03-28] MEDS ORDERED: PHYTONADIONE 5 MG/5 ML ORAL.SYR PO ONE (12:29)
[2018-03-28] MEDS: LEVOFLOXACIN INJ 250 MG in PREMIX 1 EACH IV SCH (15:56)
[2018-03-29] MEDS ORDERED: SODIUM CHLORIDE 0.9% 500 ML IV ONE (04:00)
[2018-03-29] MEDS: ALBUMIN 25% 25 GM in PREMIX 1 EACH IV SCH ×2 (04:59→13:29)
[2018-03-29] MEDS: LEVOTHYROXINE 100 MCG TABLET PO SCH (06:10)
[2018-03-29 06:29] LABS: INR 1.5; PT Patient Result 16.1 SECS
[2018-03-29 06:34] LABS: Albumin 2.1 G/DL (3.4-5.0); Bilirubin,Total 2.3 MG/DL (0.2-1.0); Calcium 8.6 MG/DL (8.5-10.1); Osmolality,Calculated 313.8 MOS/KG (273-304); Potassium 5.7 MMOL/L (3.5-5.1); Total Protein 4.7 G/DL (6.4-8.3)
[2018-03-29 06:41] LABS: Albumin 2.1 G/DL (3.4-5.0); Bilirubin,Direct 1.63 MG/DL (0.0-0.20); Bilirubin,Indirect 0.7 MG/DL (0.0-1.0); Bilirubin,Total 2.3 MG/DL (0.2-1.0); Total Protein 4.6 G/DL (6.4-8.3)
[2018-03-29 21:39] VITALS: BP 69/27
[2018-03-30] MEDS ORDERED: LEVOFLOXACIN INJ 250 MG in PREMIX 1 EACH IV SCH (09:00)
== END 2018-03-29 22:52 | disposition expired | DRG 872 ==
LOC: EDBD → EDUNIT# → N.EDINP 18:00 → N.ED 18:00 → SUATTDRO 22:43 → N.5E 23:03 → SUATTDRO 03-20 08:54
PROVIDERS: ADMIT Internal Medicine; ATTEND Hospitalist